=== PATIENT | male | born 1970 | race Hispanic/Latino ===

== ENCOUNTER 2020-04-28 08:33 | Inpatient (IN) | payer BC, OTHER ==
[~2020-04-28] VITALS: Ht 180.3 cm; Wt 86.9 kg
[2020-04-28] MEDS ORDERED: CEFEPIME 1GM/NS 0.9% 50 ML 50 ML IV STA (08:47)
[2020-04-28] MEDS ORDERED: DEXAMETHASONE SOD PHOS 10 MG/1 ML VIAL IV ONE (09:00)
[2020-04-28 09:23] LABS: BASOPHILS % 0.1 % (0.0-1.0); EOSINOPHILS % 0.1 % (0.0-6.0); HEMATOCRIT 43.7 % (38.2-49.6); HEMOGLOBIN 13.6 g/dL (14.0-18.0); LYMPHOCYTES # (AUTO) 0.8 (1.0-3.2); LYMPHOCYTES % 11.6 % (18.0-39.1); MEAN CORPUSCULAR HEMOGLOBIN 21.8 pg (28-32); MEAN CORPUSCULAR HGB CONC 31.1 g/dL (31-35); MONOCYTES # (AUTO) 0.5 (0.2-0.8); NEUTROPHILS # (AUTO) 5.6 (2.1-6.9); NEUTROPHILS % 80.2 % (38.7-80.0); PLATELET COUNT 174 x10e3/uL (140-360); RED BLOOD COUNT 6.24 x10e6/uL (4.3-5.7); RED CELL DISTRIBUTION WIDTH 15.8 % (11.7-14.4)
[2020-04-28] MEDS ORDERED: AZITHROMYCIN 500MG/NS 250 ML 250 ML IV STA (09:28)
--- NOTE | 2020-04-28 09:30 | NUR ---
PATIENT O2 SATURATION 92% ON NASAL CANNULA AT 6 LPM. PATIENT PUT ON NRB AT 10LPM 02 SAT INCREASED TO 95%. PATIENT PRONATED. SWITCHED BACK TO NC 02 SAT INCREASED TO 96-97%.
[2020-04-28 09:47] LABS: ALANINE AMINOTRANSFERASE 103 IU/L (0-55); ALBUMIN 3.1 g/dL (3.5-5.0); ALBUMIN/GLOBULIN RATIO 0.8 (0.8-2.0); ALKALINE PHOSPHATASE 73 IU/L (40-150); BLOOD UREA NITROGEN 10 mg/dL (7-26); BUN/CREATININE RATIO 10 (6-25); CALCIUM 8.6 mg/dL (8.4-10.2); CARBON DIOXIDE 22 mmol/L (22-29); CHLORIDE 94 mmol/L (98-107); CREATINE KINASE 956 IU/L (30-200); CREATININE, SERUM 0.97 mg/dL (0.72-1.25); EST GLOMERULAR FILTRATION RATE > 60 ML/MIN (60-); GLUCOSE 117 mg/dL (74-118); SODIUM 128 mmol/L (136-145)
--- NOTE | 2020-04-28 10:18 | Diagnostic Imaging Report ---
X-ray chest AP portable History: Covid positive Comparison: None Findings: Central airways unremarkable. Heart size and mediastinal contours unremarkable given the technique. No pleural effusion. No pneumothorax. Bilateral patchy and confluent opacities of airspace and interstitial type. Visualized skeletal structures and upper abdomen grossly unremarkable. Impression: Findings consistent with the clinical diagnosis of viral pneumonia. Signed by: Thang Ceballos MD on 04/28/2020 10:15 AM
--- NOTE | 2020-04-28 10:27 | NUR ---
PATIENT UNABLE TO TOLERATE PRONATE POSITION ANY LONGER, MOVED TO SEMI YING POSITION O2 SAT DECREASED TO 89% ON NC AT 6L. SWITCHED TO NRB AT 10 LPM, SAT INCREASED TO 93 %.
--- NOTE | 2020-04-28 11:22 | NUR ---
PATIENT TRIALED ON NC AT 6 LPM O2 SAT 91%.
--- NOTE | 2020-04-28 12:14 | Emergency Department Note ---
History of Present Illnes History of Present Illness Chief Complaint: COVID PUI History of Present Illness This is a 49 year old male arrives to the ED with complaints of generalized weakness and malaise after testing positive for the coronavirus. Progression: worsening Chronicity: new Past Medical/Family History Physician Review I have reviewed the patient's past medical and family history. Any updates have been documented here. Past Medical History Recent Fever: Yes Clinical Suspicion of Infectio: Yes New/Unexplained Change in Ment: No Past Medical History: Hyperlipedemia Other Surgery: lazy eye sx dislocated elbow Social History Smoking Cessation: Never Smoker Alcohol Use: Social Physically hurt or threatened: No Other Any Pre-Existing Lines (PICC,: No Review of Systems Review of Systems Constitutional: Reports malaise, Reports weakness EENTM: Reports no symptoms Cardiovascular: Reports no symptoms Respiratory: Reports as per HPI, Reports cough, Reports dyspnea Gastrointestinal: Reports no symptoms Genitourinary: Reports no symptoms Musculoskeletal: Reports no symptoms Integumentary: Reports no symptoms Neurological: Reports no symptoms Psychological: Reports no symptoms Endocrine: Reports no symptoms Hematological/Lymphatic: Reports no symptoms Physical Exam Related Data Allergies: Coded Allergies: No Known Allergies (Unverified , 04/28/20) Triage Vital Signs Vital Signs Date Time Temp Pulse Resp B/P (MAP) Pulse Ox O2 Delivery O2 Flow Rate FiO2 04/28/20 08:39 99.7 117 28 138/86 78 Room Air Vital signs reviewed: Yes Physical Exam CONSTITUTIONAL Constitutional: Present well-developed, Present well-nourished HENT HENT: Present normocephalic, Present atraumatic, Present oropharynx clear/moist, Present nose normal HENT L/R: Present left ext ear normal, Present right ext ear normal EYES Eyes: Reports PERRL, Reports conjunctivae normal NECK Neck: Present ROM normal PULMONARY Pulmonary: Present effort normal, Present breath sounds normal, Present respiratory distress CARDIOVASCULAR Cardiovascular: Present regular rhythm, Present heart sounds normal, Present capillary refill normal, Present normal rate GASTROINTESTINAL Abdominal: Present soft, Present nontender, Present bowel sounds normal GENITOURINARY Genitourinary: Present exam deferred SKIN Skin: Present warm, Present dry MUSCULOSKELETAL Musculoskeletal: Present ROM normal NEUROLOGICAL Neurological: Present alert, Present oriented x 3, Present no gross motor or sensory deficits PSYCHOLOGICAL Psychological: Present mood/affect normal, Present judgement normal Results Laboratory Result Diagram: 7/9/20 0849 04/28/20 0849 Laboratory Laboratory Tests Test 04/28/20 08:49 White Blood Count 7.04 x10e3/uL (4.8-10.8) Red Blood Count 6.24 x10e6/uL (4.3-5.7) Hemoglobin 13.6 g/dL (14.0-18.0) Hematocrit 43.7 % (38.2-49.6) Mean Corpuscular Volume 70.0 fL (81-99) Mean Corpuscular Hemoglobin 21.8 pg (28-32) Mean Corpuscular Hemoglobin Concent 31.1 g/dL (31-35) Red Cell Distribution Width 15.8 % (11.7-14.4) Platelet Count 174 x10e3/uL (140-360) Neutrophils (%) (Auto) 80.2 % (38.7-80.0) Lymphocytes (%) (Auto) 11.6 % (18.0-39.1) Monocytes (%) (Auto) 7.0 % (4.4-11.3) Eosinophils (%) (Auto) 0.1 % (0.0-6.0) Basophils (%) (Auto) 0.1 % (0.0-1.0) Neutrophils # (Auto) 5.6 (2.1-6.9) Lymphocytes # (Auto) 0.8 (1.0-3.2) Monocytes # (Auto) 0.5 (0.2-0.8) Eosinophils # (Auto) 0.0 (0.0-0.4) Basophils # (Auto) 0.0 (0.0-0.1) Absolute Immature Granulocyte (auto 0.07 x10e3/uL (0-0.1) Sodium Level 128 mmol/L (136-145) Potassium Level 4.0 mmol/L (3.5-5.1) Chloride Level 94 mmol/L (98-107) Carbon Dioxide Level 22 mmol/L (22-29) Anion Gap 16.0 mmol/L (8-16) Blood Urea Nitrogen 10 mg/dL (7-26) Creatinine 0.97 mg/dL (0.72-1.25) Estimat Glomerular Filtration Rate > 60 ML/MIN (60-) BUN/Creatinine Ratio 10 (6-25) Glucose Level 117 mg/dL (74-118) Calcium Level 8.6 mg/dL (8.4-10.2) Total Bilirubin 0.6 mg/dL (0.2-1.2) Aspartate Amino Transf (AST/SGOT) 133 IU/L (5-34) Alanine Aminotransferase (ALT/SGPT) 103 IU/L (0-55) Alkaline Phosphatase 73 IU/L (40-150) Creatine Kinase 956 IU/L (30-200) Creatine Kinase MB 2.50 ng/mL (0-5.0) Troponin I 0.016 ng/mL (0-0.300) Total Protein 7.0 g/dL (6.5-8.1) Albumin 3.1 g/dL (3.5-5.0) Globulin 3.9 g/dL (2.3-3.5) Albumin/Globulin Ratio 0.8 (0.8-2.0) Lab results reviewed: Yes Imaging Imaging results reviewed: Yes Impressions Findings: Central airways unremarkable. Heart size and mediastinal contours unremarkable given the technique. No pleural effusion. No pneumothorax. Bilateral patchy and confluent opacities of airspace and interstitial type. Visualized skeletal structures and upper abdomen grossly unremarkable. Impression: Findings consistent with the clinical diagnosis of viral pneumon Critical Care Time Total Critical Care Time (min): 35 Critical care time exclusive o: separately billable procedures Critcal care necessary due to: respiratory failure Assessment & Plan Medical Decision Making MDM 49-year-old male arrives to the ED after testing positive for the merritt virus. Patient noted hypoxic on arrival with a saturation the 70s. Patient patient supplemental oxygen, pt prone to the emergency department. Patient required hospital admission for supplemental oxygen, steroids and IV antibiotics. Assessment & Plan Final Impression: (1) Acute respiratory disease due to COVID-19 virus Depart Disposition: ADMITTED Last Vital Signs Date Time Temp Pulse Resp B/P (MAP) Pulse Ox O2 Delivery O2 Flow Rate FiO2 04/28/20 10:00 99.0 104 33 127/88 91 04/28/20 08:39 Room Air Medications in the ED Dexamethasone Sodium Phosphate 10 mg ONCE ONCE IV Last administered on 04/28/20at 09:34; Admin Dose 10 MG; Start 04/28/20 at 09:00; Stop 04/28/20 at 09:01; Status DC Cefepime HCl 50 ml @ 100 mls/hr Q24H STAT IV Last administered on 04/28/20at 09:34; Admin Dose 100 MLS/HR; Start 04/28/20 at 08:47; Stop 04/28/20 at 09:16; Status DC Azithromycin 250 ml @ 200 mls/hr NOW STAT IV Last administered on 04/28/20at 10:20; Admin Dose 200 MLS/HR; Start 04/28/20 at 09:28; Stop 04/28/20 at 10:42; Status DC SHAYNE HERNANDEZ, Apr 28, 2020 12:14
--- NOTE | 2020-04-28 13:00 | NUR ---
PATIENT PUT ON HIGH FLOW NASAL CANNULA AT 15 LITERS. O2 SAT 94%
[2020-04-28 14:30] VITALS: BP 136/96
--- NOTE | 2020-04-28 14:30 | NUR ---
Pt received from ER at this time. Pt is aox4 and able to verbalize needs. Pt is on 02 15L high flow nasal cannula. Breaths are even and unlabored at this time. Denies any pain at this time. IV to right AC is intact and patent.
[2020-04-28 16:00] VITALS: BP 136/96
[2020-04-28] MEDS ORDERED: ZOLPIDEM TARTRATE 5 MG TAB PO PRN (16:00)
[2020-04-28] MEDS ORDERED: ATORVASTATIN CA20 MG PO (16:20)
[2020-04-28] MEDS ORDERED: TRAMADOL HCL 50 MG TAB PO PRN (16:45)
[2020-04-28] MEDS ORDERED: ONDANSETRON HCL INJ 2MG/ML 2ML 2 MG/ML VIAL IV PRN (16:45)
--- NOTE | 2020-04-28 16:56 | Consultation ---
DATE OF CONSULTATION: Pulmonary Critical Care Consultation CHIEF COMPLAINT: Dyspnea and fevers. HISTORY OF PRESENT ILLNESS: The patient is a 49-year-old man. He has been sick for about 2 weeks. He has had some fevers as well as cough. Over the past several days, he has been noticed increased shortness of breath. He had trouble with minimal exertion. He also noted some worsening cough. He came to the ER and was found to have low oxygen saturations. PAST MEDICAL HISTORY: 1. No prior respiratory problems. 2. No prior asthma or COPD. 3. No prior heart problems. 4. No prior diabetes. SOCIAL HISTORY: The patient is not a smoker. He is not a drinker. ALLERGIES: NO KNOWN DRUG ALLERGIES. PAST SURGICAL HISTORY: None. FAMILY HISTORY: Noncontributory. REVIEW OF SYSTEMS: The patient reports fever for about 2 weeks. No headache. No neck pain. The patient is not having any chest pain. There is some cough and dyspnea. There is no wheezing. Abdomen is soft, nontender. There is no nausea or vomiting. The patient does not have any leg edema. PHYSICAL EXAMINATION: VITAL SIGNS: Blood pressure is 117/79 and saturation is 91% on a high-flow oxygen. Pulse is 98 and the respiratory rate is in the mid 20s. HEENT: No facial swelling or erythema. CARDIAC: Regular rate and rhythm. Normal S1, S2. LUNGS: Auscultation of lungs reveals clear breath sounds bilaterally. There are some crackles at the bases. ABDOMEN: Soft, nontender. There is no rebound or guarding. EXTREMITIES: No leg edema or calf tenderness. There is no cyanosis or clubbing. SKIN: No rashes. NEUROLOGICAL: No focal abnormalities. LABORATORY DATA: White blood cell count is 7 and hemoglobin is 13.6. The platelet count is 174. The BUN to creatinine ratio is normal. The other electrolytes are within normal limits. Sodium is 128. COVID-19 is positive. RADIOGRAPHIC DATA: Chest x-ray shows bilateral infiltrates consistent with viral pneumonia. IMPRESSION: 1. Viral pneumonia and coronavirus disease-19 infection. 2. Microcytic anemia. 3. Low blood sodium. PLAN: 1. The patient will be continued on antibiotics. 2. Dexamethasone. 3. Lovenox. 4. CT scan of chest to rule out pulmonary emboli or any superimposed respiratory problems. 5. Echocardiogram. 6. Tylenol as needed. 7. Oxygen as needed with a weaning of oxygen. MD RYNE Martinez/[place] /[id number]
[2020-04-28] MEDS ORDERED: SODIUM CHLORIDE 0.9% 250ML 250 ML ONE (16:59)
[2020-04-28] MEDS ORDERED: METOPROLOL TARTRATE INJ 1 MG/ML VIAL IV PRN (17:00)
[2020-04-28] MEDS: ZINC SULFATE 220 MG CAP PO SCH (17:12)
[2020-04-28] MEDS: ASCORBIC ACID 500 MG TAB PO SCH (17:12)
[2020-04-28] MEDS: CEFTRIAXONE SOD 1 GM/NS 50 ML 50 ML IV SCH (17:12)
[2020-04-28] MEDS ORDERED: IOPAMIDOL 370 MG/ML 200 ML INFUS..BTL INJ ONE (17:20)
[2020-04-28] MEDS ORDERED: SODIUM CHLORIDE 0.9% 50ML 50 ML ONE (17:20)
[2020-04-28 18:27] LABS: RBC MORPHOLOGY COMMENT NORMAL
[2020-04-28 18:28] LABS: ANISOCYTOSIS SLIGHT; PLATELET ESTIMATE ADEQUATE; PLATELET MORPHOLOGY COMMENT RARE EDTA CLUMPING; STOMATOCYTES MODERATE
--- NOTE | 2020-04-28 18:56 | Consultation ---
DATE OF CONSULTATION: 04/28/2020 REASON FOR CONSULTATION: COVID-19. HISTORY OF PRESENT ILLNESS: This patient who is a 49-year-old male. He has been sick for more than 2 weeks, but he has been getting progressively worse over the last couple of days with shortness of breath, so he came here. The patient is being admitted. The patient who is currently being in the hospital. PAST MEDICAL HISTORY: He denies. PAST SURGICAL HISTORY: He denies. ALLERGIES: NKA. SOCIAL HISTORY: There is no smoking, drug abuse, or alcohol abuse. FAMILY HISTORY: Otherwise unremarkable. PHYSICAL EXAMINATION: GENERAL: He is currently alert, oriented, does not seem in acute distress. VITAL SIGNS: Stable, currently afebrile. HEENT: He is not icteric. NECK: Supple. CHEST: Clear. HEART: S1 and S2. No murmurs. ABDOMEN: Soft. Bowel sounds present. No tenderness. EXTREMITIES: No edema. SKIN: No rash. IMPRESSION: Coronavirus disease-19, respiratory failure. He has been sick more than 2 weeks, too late for remdesivir. Recommend Rocephin 1 g daily five days, azithromycin 5 mg daily for 3 days, dexamethasone 6 mg p.o. daily for 10 days, Lovenox 0.5 mg/kg q.12 hours, oxygen as needed, vitamin D, vitamin C and zinc supplement. We will follow. MD NELA Curiel/[place] /[id number]
--- NOTE | 2020-04-28 20:00 | NUR ---
Resumed care of patient. Patient awake and sitting up in bed, respirations even and unlabored, O2 92% on 15L high flow nasal cannula. Vital signs stable, no s/s of distress at this time. Bed locked and in lowest position, side rails upx3, alarm on. Call light placed within reach. Patient instructed to call for assistance if needed, verbalized understanding. All safety measures in place. Will continue to monitor.
--- NOTE | 2020-04-28 20:20 | Diagnostic Imaging Report ---
EXAM: CT Chest WITH contrast 04/28/2020 6:04 PM INDICATION: ^Worsening Dyspnea - rule out PE ^[id number] ^1804 COMPARISON: None TECHNIQUE: Chest was scanned utilizing a multidetector helical scanner from the lung apex through the level of the adrenal glands with administration of IV contrast. Coronal and sagittal reformations were obtained. Routine protocol was performed. IV CONTRAST: 100 mL of Omnipaque 300 COMPLICATIONS: None RADIATION DOSE: Total DLP: 494.09 mGy*cm Estimated effective dose: (DLP x 0.014 x size factor) mSv CTDIvol has been reviewed. It is below the limits set by the Radiation Protocol Committee (RPC). Dose modulation, iterative reconstruction, and/or weight based adjustment of the mA/kV was utilized to reduce the radiation dose to as low as reasonably achievable. FINDINGS: LINES/ TUBES: None. VASCULAR: There are no filling defects within the pulmonary arteries to suggest presence of pulmonary embolism. The main pulmonary artery has normal caliber measuring 2.5 cm. LUNGS AND AIRWAYS: There is diffuse patchy groundglass opacification of the lungs with minimally interspersed areas of normal lung parenchyma. The central airways are patent. There is bibasilar atelectasis. PLEURA: The pleural spaces are clear. HEART AND MEDIASTINUM: The thyroid gland is normal. No mediastinal, hilar or axillary lymphadenopathy. The heart is normal in size. There is no pericardial effusion. UPPER ABDOMEN: Unremarkable. BONES: The visualized bony thorax is within normal limits. SOFT TISSUES: Unremarkable. IMPRESSION: 1. Diffuse patchy groundglass opacity involving both lungs, worse at the bases, which most likely represents multifocal pneumonia. 2. No evidence of pulmonary embolism. This images are reviewed by Evgeny Lloyd MD Signed by: Evgeny Lloyd MD on 04/28/2020 8:16 PM
[2020-04-28] MEDS: ENOXAPARIN SOD INJ 40 MG/0.4 ML SYR SC SCH (20:33)
[2020-04-28] MEDS: GUAIFENESIN/CODEINE 10 ML CUP PO PRN (20:33)
[2020-04-28 20:46] VITALS: BP 144/97
[2020-04-28 21:06] VITALS: BP 144/97
--- NOTE | 2020-04-28 21:47 | History and Physical ---
CONSULTING PHYSICIANS: 1. Vicky Evans MD. 2. Pepe Kirkpatrick MD. CHIEF COMPLAINT: Dyspnea and fevers. HISTORY OF PRESENT ILLNESS: The patient is a 49-year-old male, who has been sick about 2 weeks, having chills the first week, but none since. He states he has had increased shortness of breath with only minimal exertion and worsening cough. He came to the emergency department, was found to have low oxygen saturation. He has tested positive for COVID-19. PAST MEDICAL HISTORY: Hyperlipidemia and dislocated elbow. PAST SURGICAL HISTORY: LASIK eye surgery. FAMILY HISTORY: Father had diabetes mellitus. Mother had diabetes mellitus and early Alzheimer's. SOCIAL HISTORY: He denies any use of tobacco or illicit drugs. He drinks alcohol on occasion. 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 ALLERGIES: NO KNOWN ALLERGIES. REVIEW OF SYSTEMS: Has fevers off and on. No chills. He does have a poor appetite. He wears glasses. He has a cough with a small amount of phlegm, short of breath and dyspnea. Denies problems with urination. No complaints of chest pain or palpitations. No nausea, vomiting. He had diarrhea 5 times yesterday and once today. His previous headache has improved. PHYSICAL EXAMINATION: VITAL SIGNS: Temperature 98.4, T-max 99.7, heart rate 99, blood pressure 136/96, respirations 20, oxygen saturation 94%. Weight 215 pounds. BMI 29.98. GENERAL: Lying supine in bed. No acute distress. LUNGS: With bibasilar crackles. He is on 15 L/minute of high-flow oxygen via nasal cannula. HEENT: EOMI. NECK: Supple. CARDIOVASCULAR: Regular rate and rhythm. No murmur. ABDOMEN: Bowel sounds positive. Soft, nontender. No guarding. EXTREMITIES: No pitting edema. No clubbing, cyanosis, or signs of DVT. NEUROLOGICAL: GCS 15. Nonfocal. Oriented x4. LABORATORY DATA: WBC 7.04, hemoglobin 13.6, hematocrit 43.7, platelets 174, neutrophils 80.2%. Sodium 128, potassium 4.0, chloride 94, CO2 of 22, anion gap 16, BUN 10, creatinine 0.97, estimated GFR greater than 60, glucose 117, calcium 8.6, total bilirubin 0.6, AST 133, ALT 103, alkaline phosphatase 73, creatine kinase 956, CK-MB 2.5, troponin I 0.016, total protein 7, albumin 3.1. On 04/28 coronavirus PCR detected. Chest x-ray showed findings consistent with a clinical diagnosis of viral pneumonia. A CT of the chest done around 4 p.m. today with results pending. ASSESSMENT AND PLAN: 1. Viral community-acquired pneumonia (present on admission) due to coronavirus disease-19. CT of the chest to rule out PE has been completed, awaiting those results. Echocardiogram has been ordered and the results are pending. Wean oxygen as tolerated. Continue dexamethasone, azithromycin, and Rocephin antibiotics, Lovenox, vitamin C, zinc sulfate. 2. Microcytic anemia. Monitor H and H, hemoglobin 13.6 today. 3. Acute hyponatremia. Sodium 128. Monitor sodium level. Consider fluid restriction. Consider providing only liquids that contain at least some sodium and avoid water. 4. Acute hypochloremia. Chloride 94. Monitor. 5. Transaminitis. AST 133, ALT 103. Monitor LFTs. 6. Elevated creatine kinase. CK 956. Monitor. 7. Hypoalbuminemia, albumin level 3.1. Maintain nutritional support. He is on a cardiac diet. 8. We will also add p.r.n. metoprolol tartrate for hypertension as needed, Pepcid for peptic ulcer disease prophylaxis, vitamin C and zinc sulfate, p.r.n. Zofran, p.r.n. tramadol, Ensure b.i.d. for nutritional support as the patient has poor appetite and unable to consume much food at a time. A.m. labs ordered. Physical Therapy eval and treat. H and P time spent 60 minutes. Billing code [id number]. Dictated by Lang North, RODRICK MD ANDRÉS KelleyP/MODL /[id number]
[2020-04-29] VITALS (15 sets, daily range): BP systolic 120–132; BP diastolic 78–92
[2020-04-29] MEDS: GUAIFENESIN/CODEINE 10 ML CUP PO PRN (03:27)
[2020-04-29 05:33] LABS: BASOPHILS % 0.1 % (0.0-1.0); HEMOGLOBIN 13.6 g/dL (14.0-18.0); LYMPHOCYTES # (AUTO) 0.8 (1.0-3.2); MEAN CORPUSCULAR HEMOGLOBIN 21.7 pg (28-32); MEAN CORPUSCULAR HGB CONC 30.9 g/dL (31-35); MEAN CORPUSCULAR VOLUME 70.3 fL (81-99); MONOCYTES # (AUTO) 0.6 (0.2-0.8); MONOCYTES % 7.5 % (4.4-11.3); NEUTROPHILS # (AUTO) 6.5 (2.1-6.9); NEUTROPHILS % 81.8 % (38.7-80.0); PLATELET COUNT 189 x10e3/uL (140-360); RED BLOOD COUNT 6.26 x10e6/uL (4.3-5.7)
[2020-04-29 05:51] LABS: ANION GAP 17.7 mmol/L (8-16); BLOOD UREA NITROGEN 14 mg/dL (7-26); BUN/CREATININE RATIO 16 (6-25); CALCIUM 8.9 mg/dL (8.4-10.2); CARBON DIOXIDE 22 mmol/L (22-29); CHLORIDE 102 mmol/L (98-107); CHOL/HDL RATIO 3.2 (3.9-4.7); CHOLESTEROL 121 MD/DL (0-199); CREATININE, SERUM 0.89 mg/dL (0.72-1.25); EST GLOMERULAR FILTRATION RATE > 60 ML/MIN (60-); GLUCOSE 164 mg/dL (74-118); HDL CHOLESTEROL 38 MG/DL (40-60); LDL CHOLESTEROL 63 MG/DL (60-130); MAGNESIUM 2.1 MG/DL (1.3-2.1); PHOSPHORUS 3.9 MG/DL (2.3-4.7); POTASSIUM 4.7 mmol/L (3.5-5.1); SODIUM 137 mmol/L (136-145); TRIGLYCERIDES 98 MG/DL (0-149)
[2020-04-29 06:11] LABS: THYROID STIMULATING HORMONE 0.862 uIU/mL (0.350-4.940)
[2020-04-29] MEDS ORDERED: FAMOTIDINE 20 MG TAB PO SCH (07:30)
--- NOTE | 2020-04-29 07:40 | NUR ---
PATIENT ASSISTED TO THE RESTROOM AND BACK TO BED, NO DISTRESS NOTED. HIGH FLOW O2 IN PLACE. BED IN LOWER POSITION, CALL LIGHT AT REACH.
[2020-04-29 08:07] LABS: ANISOCYTOSIS SLIGHT; BAND NEUTROPHILS % (MANUAL) 1 %; LYMPHOCYTES % (MANUAL) 4 % (19-48); MICROCYTOSIS SLIGHT; MONOCYTES % (MANUAL) 4 % (3.4-9.0); NEUTROPHILS % (MANUAL) 91 % (40-74); PLATELET ESTIMATE ADEQUATE; PLATELET MORPHOLOGY COMMENT NORMAL; RBC MORPHOLOGY COMMENT NORMAL
[2020-04-29] MEDS: DEXAMETHASONE PHOS 4MG/ML 6 MG in SODIUM CHLORIDE 0.9% 50ML 50 ML IV SCH (09:00)
[2020-04-29] MEDS ORDERED: DEXAMETHASONE PHOS 4MG/ML 5ML MULTIDOSE VIAL IV SCH (09:00)
[2020-04-29] MEDS ORDERED: CEFTRIAXONE SOD 1 GM/NS 50 ML 50 ML IV SCH (09:00)
[2020-04-29] MEDS: AZITHROMYCIN 500MG/NS 250 ML 250 ML IV SCH (09:34)
[2020-04-29] MEDS: ZINC SULFATE 220 MG CAP PO SCH ×2 (09:34→17:00)
[2020-04-29] MEDS: ASCORBIC ACID 500 MG TAB PO SCH ×2 (09:34→18:40)
[2020-04-29] MEDS: ENOXAPARIN SOD INJ 40 MG/0.4 ML SYR SC SCH ×2 (09:34→20:25)
--- NOTE | 2020-04-29 10:30 | NUR ---
BED SIDE ECHOCARDIOGRAM COMPLETED. PATIENT IN BED RESTING WITH CALL LIGHT AT REACH.
--- NOTE | 2020-04-29 10:39 | Progress Note ---
DATE: SUBJECTIVE: The patient had CT scan of the chest yesterday, which showed no pulmonary emboli. His multifocal pneumonia consistent with COVID-19. He remains on high-flow oxygen at 15 L, but feels comfortable. He is not tachypneic. PHYSICAL EXAMINATION: VITAL SIGNS: Blood pressure is 128/80 and saturation is 97%. HEENT: Shows no facial swelling or erythema. CARDIAC: Reveals regular rate and rhythm with normal S1 and S2. LUNGS: Auscultation of lungs reveals crackles at the bases. There is no wheezing. ABDOMEN: Soft and nontender. There is no rebound or guarding. EXTREMITIES: Shows no leg edema or calf tenderness. There is no cyanosis or clubbing. SKIN: Shows no rashes. NEUROLOGICAL: Shows no focal abnormalities. LABORATORY DATA: White blood cell count is 7.9 and hemoglobin is 13.6. The platelet count is 189. The BUN to creatinine ratio is normal. Other electrolytes are within normal limits. IMPRESSION: 1. Acute respiratory failure. 2. Viral pneumonia and COVID-19 infection. 3. Microcytic anemia. PLAN: 1. Continue current antibiotics. 2. Complete dexamethasone. 3. Continue Lovenox. 4. Await results of echocardiogram. 5. Wean oxygen as tolerated. 6. Will need evaluation for microcytic anemia when more stable. Pepe Kirkpatrick MD [facility]/[place] /[id number]
--- NOTE | 2020-04-29 11:35 | NUR ---
PATIENT O2 SAT BETWEEN 85 AND 89% ON 15L HIGH FLOW. MD NOTIFIED, AT BED SIDE AT THIS TIME. NEW ORDER RECEIVED.
--- NOTE | 2020-04-29 13:30 | NUR ---
PATIENT TRANSFERRED TO [facility] ICU ROOM 11. REPORT CALLED AND GIVEN TO RECEIVING NURSE. PATIENT TRANSFERRED PER BED, ALL PERSONAL ITEMS TAKEN WITH PATIENT. PATIENT STATED THAT HE WILL NOTIFY HIS FAMILY.
--- NOTE | 2020-04-29 18:06 | NUR ---
Nutrition Screen Note RD Recommendation for Physician: -Continue current diet regimen Plan of Care: RD following, monitoring for tolerance and adequacy Nutrition reason for involvement: Nutrition Risk Trigger Primary Diagnose(s): acute respiratory disease due to COVID-19 virus PMH: Hyperlipidemia and dislocated elbow Ht: 71 in Wt:215 lb BMI: 30 kg/m2 IBW:[address] Assessment: (04/29/20) Chart reviewed. Labs and meds reviewed. Pt is a 49 year old male admitted with acute respiratory disease due to COVID-19. Pt was transferred to the [facility] ICU and is on high-flow oxygen. Unable to speak to pt due to isolation restrictions. Pt is currently on a cardiac diet with Ensure Enlive ordered BID. It is recorded that pt consumed 75% of lunch today and 100% of dinner yesterday. There are no previous weights in chart. Will continue to monitor. Current Diet: cardiac diet with Ensure Enlive BID Malnutrition Evaluation (04/29/20) Unable to assess. Will re-evaluate at follow-up as appropriate. Diet Education Needs Assessment: RD is available for diet education as needed Nutrition Care Level: low Signed: Kiana Purdy, RD, LD
[2020-04-29] MEDS: CEFTRIAXONE SOD 1 GM/NS 50 ML 50 ML IV SCH (18:40)
[2020-04-29] MEDS: CHOLECALCIFEROL 400 UNIT TAB PO SCH (18:40)
[2020-04-29] MEDS: FAMOTIDINE 20 MG/2 ML VIAL IV SCH (20:25)
[2020-04-30] VITALS (21 sets, daily range): BP systolic 117–136; BP diastolic 76–89
[2020-04-30 05:52] LABS: BASOPHILS % 0.1 % (0.0-1.0); HEMATOCRIT 42.2 % (38.2-49.6); HEMOGLOBIN 13.3 g/dL (14.0-18.0); LYMPHOCYTES # (AUTO) 0.8 (1.0-3.2); LYMPHOCYTES % 6.5 % (18.0-39.1); MEAN CORPUSCULAR HGB CONC 31.5 g/dL (31-35); MEAN CORPUSCULAR VOLUME 72.9 fL (81-99); MONOCYTES # (AUTO) 1.1 (0.2-0.8); MONOCYTES % 8.4 % (4.4-11.3); NEUTROPHILS # (AUTO) 10.7 (2.1-6.9); NEUTROPHILS % 84.3 % (38.7-80.0); PLATELET COUNT 196 x10e3/uL (140-360); RED BLOOD COUNT 5.79 x10e6/uL (4.3-5.7); RED CELL DISTRIBUTION WIDTH 17.2 % (11.7-14.4)
[2020-04-30 05:53] LABS: ALANINE AMINOTRANSFERASE 75 IU/L (0-55); ALBUMIN 2.6 g/dL (3.5-5.0); ALBUMIN/GLOBULIN RATIO 0.7 (0.8-2.0); ALKALINE PHOSPHATASE 65 IU/L (40-150); ANION GAP 14.7 mmol/L (8-16); BLOOD UREA NITROGEN 15 mg/dL (7-26); BUN/CREATININE RATIO 17 (6-25); CALCIUM 8.8 mg/dL (8.4-10.2); CARBON DIOXIDE 25 mmol/L (22-29); CHLORIDE 103 mmol/L (98-107); EST GLOMERULAR FILTRATION RATE > 60 ML/MIN (60-); GLUCOSE 130 mg/dL (74-118); POTASSIUM 4.7 mmol/L (3.5-5.1); SODIUM 138 mmol/L (136-145)
[2020-04-30] MEDS: ZINC SULFATE 220 MG CAP PO SCH ×2 (09:00→16:36)
[2020-04-30] MEDS: DEXAMETHASONE PHOS 4MG/ML 6 MG in SODIUM CHLORIDE 0.9% 50ML 50 ML IV SCH (10:37)
[2020-04-30] MEDS: CHOLECALCIFEROL 400 UNIT TAB PO SCH ×2 (10:37→17:43)
[2020-04-30] MEDS: ENOXAPARIN SOD INJ 40 MG/0.4 ML SYR SC SCH ×2 (10:37→20:55)
[2020-04-30] MEDS: AZITHROMYCIN 500MG/NS 250 ML 250 ML IV SCH (10:37)
[2020-04-30] MEDS: ASCORBIC ACID 500 MG TAB PO SCH ×2 (10:37→17:43)
[2020-04-30] MEDS: FAMOTIDINE 20 MG/2 ML VIAL IV SCH ×2 (10:37→20:55)
--- NOTE | 2020-04-30 11:39 | Progress Note ---
DATE: SUBJECTIVE: The patient is resting comfortably with a respiratory rate in the low 20s, but is still on Vapotherm at 40 L with 100%. PHYSICAL EXAMINATION: VITAL SIGNS: The blood pressure is 117/83, saturation is 96% on Vapotherm. HEENT: Shows no facial swelling or erythema. CARDIAC: Reveals regular rate and rhythm with normal S1 and S2. LUNGS: Auscultation of lungs reveals clear breath sounds bilaterally. There is no wheezing. ABDOMEN: Soft and nontender. There is no rebound or guarding. EXTREMITIES: Shows no leg edema or calf tenderness. There is no cyanosis or clubbing. SKIN: Shows no rashes. NEUROLOGICAL: Shows no focal abnormalities. LABORATORY DATA: White blood cell count is 12.6 and hemoglobin is 13.3. The BUN to creatinine ratio is 15 to 0.9 and the albumin is 2.6. IMPRESSION: 1. Acute respiratory failure. 2. Viral pneumonia and COVID-19 infection. 3. Microcytic anemia. PLAN: 1. Complete dexamethasone. 2. Continue current antibiotics. 3. Complete remdesivir. 4. Continue Lovenox. 5. Wean oxygen as tolerated. 6. Evaluate microcytic anemia when stable. Pepe Kirkpatrick MD [facility] /[id number]
[2020-04-30] MEDS: CEFTRIAXONE SOD 1 GM/NS 50 ML 50 ML IV SCH (17:43)
[2020-04-30] MEDS: DEXMEDETOMIDINE HCL 200 MCG in SODIUM CHLORIDE 0.9% 50ML 48 ML IV PRN (20:55)
[2020-05-01] VITALS (28 sets, daily range): BP systolic 107–138; BP diastolic 74–88
[2020-05-01 05:53] LABS: BASOPHILS % 0.1 % (0.0-1.0); HEMOGLOBIN 13.5 g/dL (14.0-18.0); LYMPHOCYTES % 8.1 % (18.0-39.1); MEAN CORPUSCULAR HEMOGLOBIN 21.7 pg (28-32); MEAN CORPUSCULAR VOLUME 72.5 fL (81-99); MONOCYTES # (AUTO) 1.2 (0.2-0.8); MONOCYTES % 9.8 % (4.4-11.3); NEUTROPHILS # (AUTO) 9.6 (2.1-6.9); NEUTROPHILS % 81.3 % (38.7-80.0); PLATELET COUNT 242 x10e3/uL (140-360); RED BLOOD COUNT 6.21 x10e6/uL (4.3-5.7); RED CELL DISTRIBUTION WIDTH 16.8 % (11.7-14.4)
[2020-05-01 06:25] LABS: ALANINE AMINOTRANSFERASE 68 IU/L (0-55); ALBUMIN 2.7 g/dL (3.5-5.0); ALBUMIN/GLOBULIN RATIO 0.7 (0.8-2.0); ALKALINE PHOSPHATASE 75 IU/L (40-150); ANION GAP 13.9 mmol/L (8-16); BLOOD UREA NITROGEN 19 mg/dL (7-26); BUN/CREATININE RATIO 22 (6-25); CALCIUM 8.9 mg/dL (8.4-10.2); CARBON DIOXIDE 23 mmol/L (22-29); CHLORIDE 105 mmol/L (98-107); CREATININE, SERUM 0.86 mg/dL (0.72-1.25); EST GLOMERULAR FILTRATION RATE > 60 ML/MIN (60-); GLUCOSE 104 mg/dL (74-118); POTASSIUM 4.9 mmol/L (3.5-5.1); SODIUM 137 mmol/L (136-145)
[2020-05-01] MEDS: DEXMEDETOMIDINE HCL 200 MCG in SODIUM CHLORIDE 0.9% 50ML 48 ML IV PRN ×3 (06:26→21:41)
[2020-05-01] MEDS: ZINC SULFATE 220 MG CAP PO SCH ×2 (08:29→16:01)
[2020-05-01] MEDS: ASCORBIC ACID 500 MG TAB PO SCH ×2 (08:29→16:01)
[2020-05-01] MEDS: DEXAMETHASONE PHOS 4MG/ML 6 MG in SODIUM CHLORIDE 0.9% 50ML 50 ML IV SCH (08:29)
[2020-05-01] MEDS: FAMOTIDINE 20 MG/2 ML VIAL IV SCH ×2 (08:29→20:20)
[2020-05-01] MEDS: CHOLECALCIFEROL 400 UNIT TAB PO SCH ×2 (08:29→16:01)
[2020-05-01] MEDS: ENOXAPARIN SOD INJ 40 MG/0.4 ML SYR SC SCH ×2 (08:29→20:20)
--- NOTE | 2020-05-01 08:32 | Diagnostic Imaging Report ---
Examination: Single AP view of the chest. COMPARISON: April 28, 2020 INDICATION: Pneumonia DISCUSSION: Lines/tubes: None. Lungs: Multifocal groundglass and airspace consolidations. Pleura: No pleural effusion or pneumothorax. Heart and mediastinum: The heart and the mediastinum are unremarkable. Bones and soft tissues: No acute bony abnormalities. IMPRESSION: 1. Stable multifocal airspace and groundglass consolidations. Signed by: Dr. Elvin Peck M.D. on 05/01/2020 8:29 AM
[2020-05-01] MEDS: AZITHROMYCIN 500MG/NS 250 ML 250 ML IV SCH (09:31)
--- NOTE | 2020-05-01 13:08 | Progress Note ---
DATE: SUBJECTIVE: The patient remains on Vapotherm. He is on 40 L and 100%, but appears comfortable. He has no new complaints. He was able to eat. He is not having nausea or vomiting. PHYSICAL EXAMINATION: VITAL SIGNS: The blood pressure is 121/83 and saturation is 93%, on Vapotherm. HEENT: Shows no facial swelling or erythema. CARDIAC: Reveals regular rate and rhythm with normal S1 and S2. LUNGS: Auscultation of lungs reveals rhonchorous breath sounds bilaterally. There is no wheezing. ABDOMEN: Soft and nontender. There is no rebound or guarding. EXTREMITIES: Shows no leg edema or calf tenderness. There is no cyanosis or clubbing. LABORATORY DATA: White blood cell count is 11.7 and hemoglobin is 13.5. The platelet count is 242. The BUN to creatinine ratio is 19 to 0.86 and other electrolytes are within normal limits. Albumin is 2.7. RADIOGRAPHIC DATA: Chest x-ray shows bilateral airspace disease and multifocal opacities. IMPRESSION: 1. Acute respiratory failure. 2. Viral pneumonia and COVID-19 infection. 3. Microcytic anemia. PLAN: 1. Continue dexamethasone. 2. Continue remdesivir. 3. Continue antibiotics. 4. Lovenox. 5. Evaluate microcytic anemia when stable. Pepe Kirkpatrick MD [facility] /[id number]
--- NOTE | 2020-05-01 14:00 | Progress Note ---
DATE: CONSULTING PHYSICIANS: 1. Dr. Vicky Evans with Infectious Disease. 2. Dr. Pepe Kirkpatrick with Pulmonology. SUBJECTIVE: The patient is lying supine in bed. He is seen in the [facility] ICU, bed #11. He was transferred from [facility], bed #176 due to shortness of breath with respiratory rate 32 while on high-flow oxygen via nasal cannula at 1600 hours. After he was transferred to [facility] ICU, I saw the patient at 1720 hours. He still has a cough and at times it is productive. He denies nausea or vomiting. He had one diarrheal stools, thus far today and had two diarrheal stools yesterday. States he is eating well. OBJECTIVE: VITAL SIGNS: Temperature 98.2, heart rate 85, blood pressure 121/78, respirations 18, and oxygen saturation 91%. LUNGS: Bibasilar crackles. Currently, on Vapotherm 40 L/minute, FiO2 of 100%. Respiratory pattern even and nonlabored. Respiratory rate improved. HEENT: EOMI. NECK: Supple. CARDIOVASCULAR: Regular rate and rhythm. No murmur. ABDOMEN: Bowel sounds positive. Soft, nontender. No guarding. EXTREMITIES: Without pitting edema. No clubbing, cyanosis, or signs of DVT. NEUROLOGICAL: GCS 15. Nonfocal. Oriented x4. He is using a urinal as real urine. LABORATORY DATA: Today; WBC 7.9, hemoglobin 13.6, hematocrit 44, and platelets 189. Sodium 137, potassium 4.7, chloride 102, CO2 of 22, anion gap 17.7, BUN 14, creatinine 0.89, estimated GFR greater than 60, glucose 164. Fingerstick blood glucose level 175. Hemoglobin A1c 6.3%. Calcium 8.9, phosphorus 3.9, magnesium 2.1. Triglycerides 98, cholesterol 121, LDL 63, HDL 38. TSH 0.862. On 04/28/2020, Coronavirus PCR detected. CT of the chest done yesterday was negative for PE. Diffuse patchy ground-glass opacity involving both lungs, worse at the bases, which most likely represents multifocal pneumonia. ASSESSMENT AND PLAN: 1. Viral community-acquired pneumonia, POA, due to Coronavirus disease-19. Echocardiogram results pending. Wean oxygen as tolerated. Continue dexamethasone, azithromycin, Rocephin, Lovenox, vitamin C, zinc sulfate. 2. Microcytic anemia. Monitor H and H. 3. Acute hyponatremia. Sodium level 137 (128), level improved. 4. Acute hypochloremia. Chloride 102 (94), improved. 5. Transaminitis. Reassess LFTs in the morning. 6. Elevated creatine kinase. CK 956. We will reassess in the morning. 7. Prophylaxis. Pepcid. TIME SPENT: 35 minutes. BILLING CODE: [id number]. Dictated by Lang North, AUTOMATIC PAD MAKING MACHINE OPERATOR Shaka Humphreys MD [facility]/MODL /[id number]
[2020-05-01] MEDS: CEFTRIAXONE SOD 1 GM/NS 50 ML 50 ML IV SCH (15:04)
[2020-05-02] VITALS (25 sets, daily range): BP systolic 113–171; BP diastolic 67–108
[2020-05-02] MEDS: DEXMEDETOMIDINE HCL 200 MCG in SODIUM CHLORIDE 0.9% 50ML 48 ML IV PRN ×3 (05:00→19:02)
[2020-05-02 05:31] LABS: BASOPHILS % 0.2 % (0.0-1.0); HEMATOCRIT 45.5 % (38.2-49.6); HEMOGLOBIN 14.2 g/dL (14.0-18.0); LYMPHOCYTES # (AUTO) 1.1 (1.0-3.2); LYMPHOCYTES % 8.3 % (18.0-39.1); MEAN CORPUSCULAR HEMOGLOBIN 21.9 pg (28-32); MEAN CORPUSCULAR HGB CONC 31.2 g/dL (31-35); MEAN CORPUSCULAR VOLUME 70.2 fL (81-99); MONOCYTES # (AUTO) 0.8 (0.2-0.8); MONOCYTES % 6.3 % (4.4-11.3); NEUTROPHILS % 84.1 % (38.7-80.0); PLATELET COUNT 281 x10e3/uL (140-360); RED BLOOD COUNT 6.48 x10e6/uL (4.3-5.7); RED CELL DISTRIBUTION WIDTH 16.8 % (11.7-14.4)
[2020-05-02 05:54] LABS: ALANINE AMINOTRANSFERASE 80 IU/L (0-55); ALBUMIN 2.5 g/dL (3.5-5.0); ALBUMIN/GLOBULIN RATIO 0.6 (0.8-2.0); ALKALINE PHOSPHATASE 80 IU/L (40-150); ANION GAP 13.6 mmol/L (8-16); BLOOD UREA NITROGEN 21 mg/dL (7-26); BUN/CREATININE RATIO 27 (6-25); CALCIUM 8.6 mg/dL (8.4-10.2); CARBON DIOXIDE 21 mmol/L (22-29); CHLORIDE 104 mmol/L (98-107); CREATININE, SERUM 0.79 mg/dL (0.72-1.25); EST GLOMERULAR FILTRATION RATE > 60 ML/MIN (60-); GLUCOSE 104 mg/dL (74-118); POTASSIUM 4.6 mmol/L (3.5-5.1); SODIUM 134 mmol/L (136-145)
[2020-05-02 07:19] LABS: MAGNESIUM 1.9 MG/DL (1.3-2.1); PHOSPHORUS 3.4 MG/DL (2.3-4.7)
--- NOTE | 2020-05-02 08:49 | Diagnostic Imaging Report ---
EXAMINATION: CHEST SINGLE (PORTABLE) INDICATION: Respiratory failure COMPARISON: Chest radiograph 05/01/2020 FINDINGS: LINES/TUBES:EKG leads overlie the chest. LUNGS:The lungs are moderately inflated. Unchanged multifocal bilateral patchy airspace opacities. PLEURA:No pleural effusion or pneumothorax. MEDIASTINUM:The cardiomediastinal silhouette appears unchanged in size and shape. BONES/SOFT TISSUES:No acute osseous injury. ABDOMEN:No free air under the diaphragm. IMPRESSION: No significant interval change. Signed by: Luna Edwards MD on 05/02/2020 8:46 AM
[2020-05-02] MEDS: ZINC SULFATE 220 MG CAP PO SCH ×2 (09:00→17:45)
[2020-05-02] MEDS: CHOLECALCIFEROL 400 UNIT TAB PO SCH ×2 (09:03→17:45)
[2020-05-02] MEDS: FAMOTIDINE 20 MG/2 ML VIAL IV SCH ×2 (09:03→22:14)
[2020-05-02] MEDS: DEXAMETHASONE PHOS 4MG/ML 6 MG in SODIUM CHLORIDE 0.9% 50ML 50 ML IV SCH (09:31)
[2020-05-02] MEDS: ASCORBIC ACID 500 MG TAB PO SCH ×2 (09:31→17:45)
[2020-05-02] MEDS: ENOXAPARIN SOD INJ 40 MG/0.4 ML SYR SC SCH ×2 (11:23→22:14)
[2020-05-02] MEDS: CEFTRIAXONE SOD 1 GM/NS 50 ML 50 ML IV SCH (16:35)
--- NOTE | 2020-05-02 17:25 | Progress Note ---
DATE: Pulmonary Critical Care Progress Note SUBJECTIVE: The patient is on Vapotherm at 40 L along with 100% oxygen. He is on non-rebreather as well. He is not complaining of chest pain. There is no nausea or vomiting. PHYSICAL EXAMINATION: VITAL SIGNS: The patient is afebrile. The blood pressure is 171/81 and saturation is 97%. HEENT: Shows no facial swelling or erythema. CARDIAC: Reveals regular rate and rhythm with normal S1 and S2. LUNGS: Auscultation of lungs reveals rhonchorous breath sounds bilaterally. There is no wheezing. ABDOMEN: Soft and nontender. There is no rebound or guarding. EXTREMITIES: Shows no leg edema or calf tenderness. There is no cyanosis or clubbing. SKIN: Shows no rashes. NEUROLOGICAL: Shows no focal abnormalities. LABORATORY DATA: White blood cell count is 13, hemoglobin is 14.2, and the platelet count is 281. BUN to creatinine ratio is 21 to 0.71. Other electrolytes are within normal limits and albumin is 2.5. IMPRESSION: 1. Acute respiratory failure. 2. COVID-19 and viral pneumonia. 3. Microcytic anemia. PLAN: 1. Continue Vapotherm. 2. Complete remdesivir. 3. Complete antibiotics. 4. Lovenox. Pepe Kirkpatrick MD [facility]/MIKEL /[id number]
[2020-05-03] VITALS (25 sets, daily range): BP systolic 98–161; BP diastolic 63–93
[2020-05-03 05:45] LABS: BASOPHILS % 0.1 % (0.0-1.0); EOSINOPHILS % 0.1 % (0.0-6.0); HEMATOCRIT 45.1 % (38.2-49.6); LYMPHOCYTES # (AUTO) 0.9 (1.0-3.2); LYMPHOCYTES % 6.5 % (18.0-39.1); MEAN CORPUSCULAR HEMOGLOBIN 21.7 pg (28-32); MONOCYTES % 7.1 % (4.4-11.3); NEUTROPHILS # (AUTO) 11.6 (2.1-6.9); NEUTROPHILS % 85.1 % (38.7-80.0); PLATELET COUNT 183 x10e3/uL (140-360); RED BLOOD COUNT 6.44 x10e6/uL (4.3-5.7)
[2020-05-03 06:12] LABS: ANION GAP 15.7 mmol/L (8-16); BLOOD UREA NITROGEN 22 mg/dL (7-26); BUN/CREATININE RATIO 28 (6-25); CALCIUM 8.7 mg/dL (8.4-10.2); CARBON DIOXIDE 21 mmol/L (22-29); CHLORIDE 103 mmol/L (98-107); CREATININE, SERUM 0.78 mg/dL (0.72-1.25); EST GLOMERULAR FILTRATION RATE > 60 ML/MIN (60-); GLUCOSE 100 mg/dL (74-118); POTASSIUM 4.7 mmol/L (3.5-5.1); SODIUM 135 mmol/L (136-145)
--- NOTE | 2020-05-03 09:32 | Progress Note ---
DATE: SUBJECTIVE: The patient is still requiring a Vapotherm of 40 L with 100%. He is a non-rebreather over the Vapotherm. The patient is eating a little bit. He does not complain of nausea or vomiting. He is not having any fevers. PHYSICAL EXAMINATION: VITAL SIGNS: Blood pressure is 135/88 and saturation is 92%. Heart rate is 59. HEENT: Shows no facial swelling or erythema. CARDIAC: Reveals regular rate and rhythm with normal S1 and S2. LUNGS: Auscultation of lungs reveals crackles at the bases. There is no wheezing. ABDOMEN: Soft and nontender. There is no rebound or guarding. EXTREMITIES: Shows no leg edema or calf tenderness. There is no cyanosis or clubbing. SKIN: Shows no rashes. NEUROLOGICAL: Shows no focal abnormalities. LABORATORY DATA: White blood cell count is 13.6 and hemoglobin is 14. The platelet count is 183. The BUN to creatinine ratio is 22 to 0.87. The other electrolytes are within normal limits. RADIOGRAPHIC DATA: Chest x-ray shows bilateral infiltrates. IMPRESSION: 1. Acute respiratory failure. 2. COVID-19 infection with viral pneumonia. 3. Microcytic anemia secondary to chronic blood loss. 4. Transaminitis secondary to viral hepatitis. PLAN: 1. Continue Vapotherm. 2. Place in prone position as tolerated. 3. Continue Lovenox. 4. Continue antibiotics. 5. Complete dexamethasone. Pepe Kirkpatrick MD [facility]/MODL /[id number]
[2020-05-03] MEDS: FAMOTIDINE 20 MG/2 ML VIAL IV SCH ×2 (09:38→20:55)
[2020-05-03] MEDS: DEXAMETHASONE SOD PHOS INJ 4 MG/ML VIAL IV SCH (09:38)
[2020-05-03] MEDS: ZINC SULFATE 220 MG CAP PO SCH ×2 (09:39→16:15)
[2020-05-03] MEDS: ENOXAPARIN SOD INJ 40 MG/0.4 ML SYR SC SCH ×2 (09:39→20:58)
[2020-05-03] MEDS: CHOLECALCIFEROL 400 UNIT TAB PO SCH ×2 (09:39→16:15)
[2020-05-03] MEDS: ASCORBIC ACID 500 MG TAB PO SCH ×2 (09:39→16:15)
[2020-05-03] MEDS: DEXMEDETOMIDINE HCL 200 MCG in SODIUM CHLORIDE 0.9% 50ML 48 ML IV PRN ×2 (16:15→21:06)
[2020-05-03] MEDS: GUAIFENESIN/CODEINE 10 ML CUP PO PRN ×2 (16:16→21:27)
[2020-05-03] MEDS ORDERED: DEXMEDETOMIDINE 200MCG/NS 50ML 50 ML IV ONE (19:54)
--- NOTE | 2020-05-03 20:16 | Progress Note ---
DATE: 05/03/2020 SUBJECTIVE: Mr. Payne is still on Vapotherm 40 L with 100%. The patient remains in Intensive Care Unit, no new complaint, feeling better up in a chair. OBJECTIVE: VITAL SIGNS: Stable, currently afebrile. HEENT: Normocephalic. NECK: Supple. CHEST: Crackles. HEART: S1, S2. ABDOMEN: Soft. Bowel sounds present. EXTREMITIES: No edema. SKIN: No rash. LABORATORY DATA: White count 13.6, hemoglobin is 14, and platelets 183. BUN 22, creatinine 0.87 . MEDICATIONS: The patient is currently on: 1. Vitamin D. 2. Zinc. 3. Vitamin C. 4. Lovenox. 5. Dexamethasone, which was started on 05/03, this is day #5. 6. Lipitor. 7. Lopressor. 8. Ultram. 9. Zofran. He is off antibiotic today. IMPRESSION AND PLAN: COVID-19, doing better, still on Venti mask, but improving. Continue with supportive care as ordered and follow. MD NELA Curiel/MODL /[id number]
[2020-05-03] MEDS: ATORVASTATIN 20 MG TAB PO SCH (20:57)
[2020-05-04] VITALS (23 sets, daily range): BP systolic 105–134; BP diastolic 59–83
[2020-05-04 04:48] LABS: BASOPHILS % 0.1 % (0.0-1.0); EOSINOPHILS # (AUTO) 0.1 (0.0-0.4); EOSINOPHILS % 0.6 % (0.0-6.0); HEMATOCRIT 44.1 % (38.2-49.6); HEMOGLOBIN 13.6 g/dL (14.0-18.0); LYMPHOCYTES # (AUTO) 0.9 (1.0-3.2); MEAN CORPUSCULAR HEMOGLOBIN 21.7 pg (28-32); MEAN CORPUSCULAR HGB CONC 30.8 g/dL (31-35); MEAN CORPUSCULAR VOLUME 70.2 fL (81-99); MONOCYTES # (AUTO) 0.9 (0.2-0.8); NEUTROPHILS # (AUTO) 12.3 (2.1-6.9); NEUTROPHILS % 86.1 % (38.7-80.0); PLATELET COUNT 184 x10e3/uL (140-360); RED BLOOD COUNT 6.28 x10e6/uL (4.3-5.7); RED CELL DISTRIBUTION WIDTH 17.1 % (11.7-14.4)
[2020-05-04 05:11] LABS: ALANINE AMINOTRANSFERASE 55 IU/L (0-55); ALBUMIN 2.3 g/dL (3.5-5.0); ALBUMIN/GLOBULIN RATIO 0.6 (0.8-2.0); ALKALINE PHOSPHATASE 62 IU/L (40-150); ANION GAP 13.4 mmol/L (8-16); BLOOD UREA NITROGEN 23 mg/dL (7-26); BUN/CREATININE RATIO 29 (6-25); CALCIUM 8.4 mg/dL (8.4-10.2); CARBON DIOXIDE 23 mmol/L (22-29); CHLORIDE 102 mmol/L (98-107); CREATININE, SERUM 0.78 mg/dL (0.72-1.25); EST GLOMERULAR FILTRATION RATE > 60 ML/MIN (60-); GLUCOSE 97 mg/dL (74-118); POTASSIUM 4.4 mmol/L (3.5-5.1); SODIUM 134 mmol/L (136-145)
--- NOTE | 2020-05-04 07:56 | Diagnostic Imaging Report ---
Examination: Single AP view of the chest. COMPARISON: Portable chest 05/02/2020 INDICATION: Pneumonia, respiratory failure IMPRESSION: 1. Lines and Tubes: None 2. No interval change in diffuse bilateral interstitial and alveolar opacities consistent with multifocal pneumonia. No effusion. 3. Cardiomediastinal silhouette is normal. Pulmonary vasculature is normal. 4. No acute bony abnormalities. Signed by: Dr. Gurinder Uriarte M.D. on 05/04/2020 7:53 AM
[2020-05-04] MEDS: ENOXAPARIN SOD INJ 40 MG/0.4 ML SYR SC SCH ×2 (08:23→20:32)
[2020-05-04] MEDS: ZINC SULFATE 220 MG CAP PO SCH (08:23)
[2020-05-04] MEDS: CHOLECALCIFEROL 400 UNIT TAB PO SCH ×2 (08:23→20:32)
[2020-05-04] MEDS: FAMOTIDINE 20 MG/2 ML VIAL IV SCH ×2 (08:23→20:34)
[2020-05-04] MEDS: DEXAMETHASONE SOD PHOS INJ 4 MG/ML VIAL IV SCH (08:23)
[2020-05-04] MEDS: ASCORBIC ACID 500 MG TAB PO SCH ×2 (08:23→20:32)
--- NOTE | 2020-05-04 14:29 | Progress Note ---
DATE: Pulmonary Critical Care Progress Note SUBJECTIVE: The patient is still requiring high-flow oxygen and Vapotherm. He is on 40 L with 100%. The patient does not have fever. There is no nausea or vomiting. PHYSICAL EXAMINATION: VITAL SIGNS: The blood pressure is 122/83 and the saturation is 90%. He is on 40 L and 100% Vapotherm. His respiratory rate is in the mid 20s. HEENT: Shows no facial swelling or erythema. CARDIAC: Reveals regular rate and rhythm with normal S1 and S2. LUNGS: Auscultation of lungs reveals crackles at the bases. There is no wheezing. ABDOMEN: Soft and nontender. There is no rebound or guarding. EXTREMITIES: Shows no leg edema or calf tenderness. There is no cyanosis or clubbing. SKIN: Shows no rashes. NEUROLOGICAL: Shows no focal abnormalities. LABORATORY DATA: White blood cell count is 14.2 and the hemoglobin is 13.6. Platelet count is 184. BUN to creatinine ratio is normal. Other electrolytes are within normal limits. The albumin is 2.3. RADIOGRAPHIC DATA: Chest x-ray shows bilateral infiltrates. IMPRESSION: 1. Acute respiratory failure. 2. COVID-19 infection with viral pneumonia. 3. Viral hepatitis secondary to COVID. 4. Microcytic anemia secondary to chronic blood loss. PLAN: 1. Continue Vapotherm. 2. Place in prone position. 3. Lovenox. 4. Complete dexamethasone. 5. Complete antibiotics. 6. Continue to monitor blood counts. MD RYNE Martinez/[place] /[id number]
[2020-05-04] MEDS: GUAIFENESIN/CODEINE 10 ML CUP PO PRN (17:34)
[2020-05-04] MEDS: DEXMEDETOMIDINE HCL 200 MCG in SODIUM CHLORIDE 0.9% 50ML 48 ML IV PRN (20:09)
[2020-05-04] MEDS: ATORVASTATIN 20 MG TAB PO SCH (20:32)
[2020-05-05] VITALS (25 sets, daily range): BP systolic 102–120; BP diastolic 63–91
[2020-05-05] MEDS ORDERED: SODIUM CHLORIDE 0.9% 50ML 0 ML ONE (01:25)
[2020-05-05] MEDS: DEXMEDETOMIDINE HCL 200 MCG in SODIUM CHLORIDE 0.9% 50ML 48 ML IV PRN ×2 (01:39→08:48)
[2020-05-05 06:24] LABS: BASOPHILS % 0.1 % (0.0-1.0); EOSINOPHILS # (AUTO) 0.2 (0.0-0.4); HEMATOCRIT 44.6 % (38.2-49.6); HEMOGLOBIN 14.2 g/dL (14.0-18.0); LYMPHOCYTES # (AUTO) 0.8 (1.0-3.2); LYMPHOCYTES % 5.4 % (18.0-39.1); MEAN CORPUSCULAR HEMOGLOBIN 23.1 pg (28-32); MEAN CORPUSCULAR HGB CONC 31.8 g/dL (31-35); MEAN CORPUSCULAR VOLUME 72.6 fL (81-99); MONOCYTES # (AUTO) 0.9 (0.2-0.8); NEUTROPHILS # (AUTO) 13.2 (2.1-6.9); PLATELET COUNT 220 x10e3/uL (140-360); RED BLOOD COUNT 6.14 x10e6/uL (4.3-5.7); RED CELL DISTRIBUTION WIDTH 18.3 % (11.7-14.4)
[2020-05-05 06:54] LABS: ALANINE AMINOTRANSFERASE 69 IU/L (0-55); ALBUMIN 2.4 g/dL (3.5-5.0); ALBUMIN/GLOBULIN RATIO 0.6 (0.8-2.0); ALKALINE PHOSPHATASE 71 IU/L (40-150); ANION GAP 16.5 mmol/L (8-16); BLOOD UREA NITROGEN 23 mg/dL (7-26); BUN/CREATININE RATIO 31 (6-25); CALCIUM 8.4 mg/dL (8.4-10.2); CARBON DIOXIDE 22 mmol/L (22-29); CHLORIDE 99 mmol/L (98-107); CREATININE, SERUM 0.75 mg/dL (0.72-1.25); EST GLOMERULAR FILTRATION RATE > 60 ML/MIN (60-); GLUCOSE 77 mg/dL (74-118); POTASSIUM 4.5 mmol/L (3.5-5.1); SODIUM 133 mmol/L (136-145)
[2020-05-05] MEDS: ENOXAPARIN SOD INJ 40 MG/0.4 ML SYR SC SCH (08:48)
[2020-05-05] MEDS: DEXAMETHASONE SOD PHOS INJ 4 MG/ML VIAL IV SCH (08:48)
[2020-05-05] MEDS: CHOLECALCIFEROL 400 UNIT TAB PO SCH ×2 (08:48→21:10)
[2020-05-05] MEDS: ASCORBIC ACID 500 MG TAB PO SCH ×2 (08:48→21:10)
--- NOTE | 2020-05-05 10:23 | Progress Note ---
DATE: SUBJECTIVE: The patient remains on a Vapotherm at 40 L, 100% and 100% non-rebreather. He is in the supine position at this time. He is resting comfortably. He does not complain of abdominal pain. There is no nausea or vomiting. PHYSICAL EXAMINATION: VITAL SIGNS: Blood pressure is 112/63, saturation is 93%. HEENT: Shows no facial swelling or erythema. CARDIAC: Reveals regular rate and rhythm with normal S1, S2. LUNGS: Auscultation of lungs reveals crackles at the bases. There is no wheezing. ABDOMEN: Soft and nontender. There is no rebound or guarding. EXTREMITIES: Shows no leg edema or calf tenderness. There is no cyanosis or clubbing. SKIN: Shows no rashes. NEUROLOGICAL: Shows no focal abnormalities. LABORATORY DATA: White blood cell count is 15.4 and hemoglobin is 14.2. The platelet count is 220. The BUN to creatinine ratio is 23 to 0.75 and the sodium is 133. Albumin is 2.4. Chest x-ray showed diffuse bilateral infiltrates. IMPRESSION: 1. Acute respiratory failure. 2. COVID-19 infection with viral pneumonia. 3. Viral hepatitis secondary to COVID. 4. Microcytic anemia secondary to chronic blood loss. PLAN: 1. Continue Vapotherm. 2. Lovenox. 3. Complete dexamethasone. 4. Complete antibiotics. 5. We will need GI evaluation when stable. Pepe Kirkpatrick MD [facility]/MODL /[id number]
--- NOTE | 2020-05-05 10:43 | Progress Note ---
DATE: SUBJECTIVE: The patient is seen evaluated in a COVID ICU. Seems to be alert and oriented. The patient is currently on Vapotherm of 40 and 100% and also on 15 L of non-rebreather. Complaint of a cough, but overall seems to be improving. No distress. No diarrhea. O2 saturation is at 95%. OBJECTIVE: VITAL SIGNS: Temperature is 98.8, pulse 91, respirations 20. As mentioned above, the patient is on non-rebreather and Vapotherm. GENERAL: Alert and oriented. Decreased breath sounds. In no acute distress. ABDOMEN: Soft, nontender. No distention. EXTREMITIES: Moves all. LABORATORY STUDIES: White count of 15.38, hemoglobin of 14.2. He has a platelet of 220. Coronavirus was positive on PCR on 04/28/2020. No new radiology studies. ASSESSMENT AND PLAN: 1. COVID-19 pneumonia. 2. Possible superimposed bacterial pneumonia. 3. Hyperlipidemia. 4. Continue with vitamin D, vitamin C, dexamethasone, Lovenox 40 mg b.i.d., zinc sulfate. Monitor O2 saturation. Monitor clinically. Please refer to chart for more information. Dictated by Sylvester Castro PA-C (Al) iVcky Evans MD /MODL /[id number]
[2020-05-05] MEDS: FAMOTIDINE 20 MG/2 ML VIAL IV SCH ×2 (11:22→21:09)
[2020-05-05] MEDS: ZINC SULFATE 220 MG CAP PO SCH (11:22)
[2020-05-05] MEDS: ATORVASTATIN 20 MG TAB PO SCH (21:10)
[2020-05-06] VITALS (27 sets, daily range): BP systolic 103–140; BP diastolic 59–97
[2020-05-06] MEDS: DEXMEDETOMIDINE HCL 200 MCG in SODIUM CHLORIDE 0.9% 50ML 48 ML IV PRN ×4 (00:15→20:04)
[2020-05-06 05:57] LABS: BASOPHILS % 0.1 % (0.0-1.0); EOSINOPHILS # (AUTO) 0.2 (0.0-0.4); EOSINOPHILS % 1.1 % (0.0-6.0); HEMATOCRIT 43.3 % (38.2-49.6); HEMOGLOBIN 13.5 g/dL (14.0-18.0); LYMPHOCYTES # (AUTO) 0.7 (1.0-3.2); LYMPHOCYTES % 4.8 % (18.0-39.1); MEAN CORPUSCULAR HEMOGLOBIN 22.1 pg (28-32); MEAN CORPUSCULAR HGB CONC 31.2 g/dL (31-35); MEAN CORPUSCULAR VOLUME 70.8 fL (81-99); MONOCYTES # (AUTO) 0.8 (0.2-0.8); MONOCYTES % 5.4 % (4.4-11.3); NEUTROPHILS # (AUTO) 12.6 (2.1-6.9); NEUTROPHILS % 87.5 % (38.7-80.0); PLATELET COUNT 236 x10e3/uL (140-360); RED BLOOD COUNT 6.12 x10e6/uL (4.3-5.7); RED CELL DISTRIBUTION WIDTH 17.5 % (11.7-14.4)
[2020-05-06 06:07] LABS: ALANINE AMINOTRANSFERASE 74 IU/L (0-55); ALBUMIN 2.2 g/dL (3.5-5.0); ALBUMIN/GLOBULIN RATIO 0.6 (0.8-2.0); ALKALINE PHOSPHATASE 71 IU/L (40-150); ANION GAP 11.3 mmol/L (8-16); BLOOD UREA NITROGEN 22 mg/dL (7-26); BUN/CREATININE RATIO 29 (6-25); CALCIUM 8.4 mg/dL (8.4-10.2); CARBON DIOXIDE 24 mmol/L (22-29); CHLORIDE 99 mmol/L (98-107); CREATININE, SERUM 0.75 mg/dL (0.72-1.25); EST GLOMERULAR FILTRATION RATE > 60 ML/MIN (60-); GLUCOSE 99 mg/dL (74-118); POTASSIUM 4.3 mmol/L (3.5-5.1); SODIUM 130 mmol/L (136-145)
--- NOTE | 2020-05-06 08:03 | Progress Note ---
DATE: 04/30/2020 CONSULTING PHYSICIANS: 1. Dr. Pepe Kirkpatrick with Pulmonology/Critical Care Medicine. 2. Dr. Vicky Evans with Infectious Disease. SUBJECTIVE: The patient remains in [facility] ICU room #11, who is resting comfortably as Vapotherm has been weaned from FiO2 of 100% to FiO2 of 80% thus far today. OBJECTIVE: VITAL SIGNS: Temperature 98.8, pulse 62, blood pressure 123/79, respirations 22, oxygen saturation 96%. GENERAL: Supine. LUNGS: Clear to auscultation without wheezing. He is on Vapotherm 40 L/minute, FiO2 of 80%. HEENT: EOMI. NECK: Supple. CARDIOVASCULAR: Regular rate and rhythm. No murmur. ABDOMEN: Bowel sounds positive. Soft, nontender. No guarding. EXTREMITIES: Without pitting edema. No clubbing, cyanosis, or marked swelling. NEUROLOGIC: GCS 15, nonfocal. LABORATORY DATA: WBC is 12.6, hemoglobin 13.3, hematocrit 42.2, platelets 196. Sodium 138, potassium 4.7, chloride 103, CO2 of 25. BUN 15, creatinine 0.9, glucose 130, neutrophils 84.3%. Total bilirubin 0.4, AST 95, ALT 75, alkaline phosphatase 65. Fingerstick blood glucose levels 129, 132, 140. Creatine kinase 794 (956). Total protein 6.6, albumin 2.6. No new imaging studies. ASSESSMENT AND PLAN: 1. Viral community-acquired pneumonia due to coronavirus disease 2019 with acute respiratory failure, complete remdesivir. Continue dexamethasone, azithromycin, Rocephin, Lovenox, vitamin C, vitamin D, zinc sulfate, wean oxygen as tolerated. 2. Elevated CK level. Monitor. 3. Transaminitis. AST 95 (133), ALT 75 (103). Monitor. 4. Microcytic anemia. Hemoglobin 13.3, stable. Monitor. 5. Prophylaxis. Lovenox and Pepcid. 6. Billing code [id number]. Time spent, 35 minutes. Dictated by Lang North NP Shaka Humphreys MD [facility]/MODL /[id number]
[2020-05-06] MEDS: DEXAMETHASONE SOD PHOS INJ 4 MG/ML VIAL IV SCH (08:18)
[2020-05-06] MEDS: CHOLECALCIFEROL 400 UNIT TAB PO SCH ×2 (08:18→20:03)
[2020-05-06] MEDS: ZINC SULFATE 220 MG CAP PO SCH (08:18)
[2020-05-06] MEDS: ASCORBIC ACID 500 MG TAB PO SCH ×2 (08:18→20:03)
--- NOTE | 2020-05-06 08:18 | Progress Note ---
DATE: CONSULTING PHYSICIANS: 1. Dr. Pepe Kirkpatrick, with Pulmonology Critical Care Medicine. 2. Dr. Vicky Evans, with Infectious Disease. SUBJECTIVE: The patient states he is breathing a bit better. Denies pain, headache, nausea, vomiting, chills, oxygen saturation is 90% at time of encounter. He does have a cough. States he has diarrhea. According to the nurse at the bedside, he has had no diarrhea that shift. He remains of cardiac diet plus Ensure. OBJECTIVE: VITAL SIGNS: Temperature 98.7, heart rate 78, blood pressure 113/77, respirations 19, and oxygen saturation 93%. GENERAL: Supine, no acute distress. LUNGS: Generally clear to auscultation with diminished bases. He is on Vapotherm 40 L/minute, FiO2 of 100% with oxygen saturation 92% at the time of encounter and also wearing a non-rebreather mask in addition to the Vapotherm. HEENT: EOMI. NECK: Supple. CARDIOVASCULAR: Regular rate and rhythm. No murmur. ABDOMEN: Bowel sounds positive. Soft, nontender. No guarding. EXTREMITIES: Without pitting edema. No clubbing, cyanosis, or signs of DVT. He is wearing SCDs. NEUROLOGICAL: He is sedated with Precedex 0.5 mcg/kg per minute. LABORATORY DATA: WBC 13, hemoglobin 14.2, hematocrit 45.5, platelets 281, neutrophils 84.1%. Sodium 134, potassium 4.6, chloride 104, CO2 21, BUN 21 and creatinine 0.79, glucose 104, total bilirubin 0.5, AST 83, ALT 80, alkaline phosphatase 80, albumin 2.5, total protein 6.5, phosphorus 3.4, magnesium 1.9. Fingerstick blood glucose level 99. IMAGING: Chest x-ray today shows no significant interval change. Still with multifocal bilateral patchy airspace opacities. ASSESSMENT AND PLAN: 1. Multifocal viral community-acquired pneumonia due to COVID-19, present on admission. Continue Rocephin, dexamethasone, Lovenox, vitamin C, vitamin D, zinc sulfate, Precedex is in use due to anxiety. Continue attempts at weaning oxygen level. 2. Severe sepsis with associated acute respiratory failure due to COVID-19. WBC 13, neutrophils 84.1%. Temperature within normal limits at 98.7. Infectious Disease continues to follow. The patient remains on Rocephin IV. 3. Microcytic anemia, improved. H and H within normal limits. Stable. Monitor. 4. Mild acute hyponatremia. Sodium 134. Monitor. 5. Mild transaminitis, AST 83, ALT 80. Monitor. 6. Elevated CK. Creatine kinase 794 on 04/30. Monitor to ensure continued downtrend. 7. Hypoalbuminemia. Albumin 2.5. Maintain nutritional status as possible with cardiac diet and Ensure. 8. Prophylaxis. Lovenox and Pepcid. Time spent 35 minutes. Billing code [id number]. Dictated by Lang North NP MD ANDRÉS KelleyP/MODL /[id number]
--- NOTE | 2020-05-06 08:43 | Progress Note ---
DATE: 05/01/2020 SUBJECTIVE: The patient lying supine in bed. No apparent distress. He remains on Vapotherm, but appears comfortable, is able to eat. OBJECTIVE: VITAL SIGNS: Temperature 97.0, heart rate 69, respirations 20, blood pressure 128/82, and oxygen saturation 89%. GENERAL: No acute distress. LUNGS: Clear to auscultation. Respiratory pattern even. HEENT: EOMI. NECK: Supple. No JVD. CARDIOVASCULAR: Regular rate and rhythm. No murmur. ABDOMEN: Bowel sounds positive. Soft, nontender. EXTREMITIES: No pitting edema. No clubbing, cyanosis, or marked swelling or signs of DVT. NEUROLOGICAL: GCS 15. Nonfocal. LABORATORY DATA: Sodium 137, potassium 4.9, chloride 105, CO2 23, BUN 19 and creatinine 0.86, estimated GFR greater than 60, glucose 104, calcium 8.9, total bilirubin 0.5, AST 85, ALT 68, alkaline phosphatase 75, total protein 6.6, albumin 2.7. WBCs 11.75, hemoglobin 13.5, hematocrit 45, platelets 242, neutrophils 81.3. IMAGING: Chest x-ray today shows stable multifocal airspace and ground-glass consolidations. ASSESSMENT AND PLAN: 1. Multifocal viral community-acquired pneumonia due to COVID-19, present on admission. Continue dexamethasone, azithromycin, Rocephin, Lovenox, zinc sulfate, vitamin C, and vitamin D. 2. Microcytic anemia. Monitor H and H. Hemoglobin 13.5 and hematocrit 45. 3. Transaminitis, improving. AST 85, ALT 68. Monitor. 4. Prophylaxis. Lovenox and Pepcid. Billing code [id number]. Time spent 35 minutes. Dictated by Lang North NP MD ANDRÉS KelleyP/MODL /[id number]
[2020-05-06] MEDS: FAMOTIDINE 20 MG/2 ML VIAL IV SCH ×2 (09:00→20:03)
--- NOTE | 2020-05-06 09:14 | Progress Note ---
DATE: 05/02/2020 ADDENDUM: Billing code [id number]. Dictated by Lang North, FLAT SURFACER JEWEL MD SERINA Kelley/MI[place]EL /[id number]
--- NOTE | 2020-05-06 09:19 | Progress Note ---
DATE: 04/30/2020 ADDENDUM: [place] [id number]. Dictated by Lang North, MANAGER SPA MD SERINA Kelley/MODL /[id number]
--- NOTE | 2020-05-06 09:23 | Progress Note ---
DATE: 05/01/2020 ADDENDUM: [facility] code [id number]. Dictated by Lang North, CLINICAL DOCUMENTATION CONSULTANT MD SERINA Kelley/MIKEL /[id number]
--- NOTE | 2020-05-06 10:34 | Progress Note ---
DATE: SUBJECTIVE: The patient is symptomatically improved. He is having less dyspnea. OBJECTIVE: VITAL SIGNS: He is now on Vapotherm with the FiO2 decreased to 55% and liter flow at 20. His pulse is 103, respiratory rate is 19. HEENT: Shows no facial swelling or erythema. CARDIAC: Reveals regular rate and rhythm with normal S1 and S2. LUNGS: Auscultation of lungs reveals rhonchorous breath sounds bilaterally. There is no wheezing. ABDOMEN: Soft and nontender. There is no rebound or guarding. EXTREMITIES: Show no leg edema or calf tenderness. There is no cyanosis or clubbing. SKIN: Shows no rashes. NEUROLOGICAL: Shows no focal abnormalities. LABORATORY DATA: White blood cell count is 14.4, hemoglobin is 13.5, and platelet count is 236. The BUN to creatinine ratio is 22 and 0.75 and the other electrolytes are within normal limits. Albumin is 2.2. IMPRESSION: 1. Acute respiratory failure. 2. Coronavirus disease 2019 infection with viral pneumonia. 3. Viral hepatitis secondary to coronavirus disease 2019. 4. Microcytic anemia secondary to chronic blood loss. PLAN: 1. Continue to wean oxygen. 2. Lovenox. 3. Complete dexamethasone. 4. Complete antibiotics. 5. As the patient improves, consider transfer out of the Intensive Care Unit. 6. GI evaluation when stable. Pepe Kirkpatrick MD [facility]/MODL /[id number]
[2020-05-06] MEDS: ALBUTEROL SULFATE HFA 8GM INHALATION AEROSOL INH PRN (13:26)
[2020-05-06] MEDS: GUAIFENESIN/CODEINE 10 ML CUP PO PRN ×2 (13:26→20:03)
--- NOTE | 2020-05-06 14:31 | Progress Note ---
DATE: SUBJECTIVE: Mr. Payne remains in intensive care unit. He is doing good overall. No new complaints. He is still on Vapotherm with FiO2 of 55% at 20. His heart rate 105, respiratory rate is 19. He looks comfortable. REVIEW OF SYSTEMS: Shortness of breath. PHYSICAL EXAMINATION: HEENT: He is not icteric. Normocephalic. NECK: Supple. CHEST: Crackles bilateral. HEART: S1 and S2. No S3, S4, or murmur. ABDOMEN: Soft. Bowel sounds present. EXTREMITIES: No edema. SKIN: No rash. LABORATORY DATA: Reviewed. White count is 14.4 and hemoglobin 13.5. His sodium 130, potassium 4.3 with a creatinine 0.75. The patient, who is on albuterol, zinc, vitamin D, and dexamethasone. This is day #6. The patient has been here for 6 days. He remains on Lovenox, Neurontin, and Zofran. He is off antibiotic. IMPRESSION: 1. COVID-19, respiratory failure, slowly getting better. 2. Elevated liver enzyme, improving. 3. Anemia, stable. Continue as ordered. 4. Continue to wean the patient. 5. Discussed with the medical team at length. MD NELA Curiel/MIKEL /[id number]
--- NOTE | 2020-05-06 15:50 | NUR ---
Nutrition Screen Note RD Recommendation for Physician: -Continue current diet regimen Plan of Care: RD following, monitoring for tolerance and adequacy Nutrition reason for involvement: follow up Primary Diagnose(s): acute respiratory disease due to COVID-19 virus PMH: Hyperlipidemia and dislocated elbow Ht: 71 in Wt:215 lb BMI: 30 kg/m2 IBW:[address] Assessment: 05/06: Follow up. Chart reviewed. RD called pt's nurse over the phone. RN stated pt is consuming 75% of his meals and is drinking Ensure nutrition supplements. Will continue to monitor. (04/29/20) Chart reviewed. Labs and meds reviewed. Pt is a 49 year old male admitted with acute respiratory disease due to COVID-19. Pt was transferred to the [facility] ICU and is on high-flow oxygen. Unable to speak to pt due to isolation restrictions. Pt is currently on a cardiac diet with Ensure Enlive ordered BID. It is recorded that pt consumed 75% of lunch today and 100% of dinner yesterday. There are no previous weights in chart. Will continue to monitor. Current Diet: cardiac diet with Ensure Enlive BID Malnutrition Evaluation (04/29/20) Unable to speak to pt. Will re-evaluate at follow-up as appropriate. Diet Education Needs Assessment: RD is available for diet education as needed Nutrition Care Level: low Signed: Kiana Purdy RD, LD
[2020-05-06] MEDS: BENZONATATE 100 MG CAP PO PRN (17:08)
[2020-05-06] MEDS: MELATONIN 5 MG TABLET PO PRN (20:03)
[2020-05-06] MEDS: ATORVASTATIN 20 MG TAB PO SCH (20:03)
[2020-05-06] MEDS: ENOXAPARIN SOD INJ 40 MG/0.4 ML SYR SC SCH (20:03)
[2020-05-07] VITALS (26 sets, daily range): BP systolic 102–138; BP diastolic 52–82
[2020-05-07] MEDS: DEXMEDETOMIDINE HCL 200 MCG in SODIUM CHLORIDE 0.9% 50ML 48 ML IV PRN ×3 (03:05→20:50)
[2020-05-07 04:21] LABS: BASOPHILS % 0.2 % (0.0-1.0); EOSINOPHILS % 0.1 % (0.0-6.0); HEMATOCRIT 42.9 % (38.2-49.6); HEMOGLOBIN 13.3 g/dL (14.0-18.0); LYMPHOCYTES # (AUTO) 0.7 (1.0-3.2); LYMPHOCYTES % 4.8 % (18.0-39.1); MEAN CORPUSCULAR HEMOGLOBIN 21.9 pg (28-32); MEAN CORPUSCULAR VOLUME 70.6 fL (81-99); MONOCYTES % 6.4 % (4.4-11.3); NEUTROPHILS # (AUTO) 13.2 (2.1-6.9); NEUTROPHILS % 87.4 % (38.7-80.0); PLATELET COUNT 164 x10e3/uL (140-360); RED BLOOD COUNT 6.08 x10e6/uL (4.3-5.7)
[2020-05-07 04:42] LABS: ALANINE AMINOTRANSFERASE 70 IU/L (0-55); ALBUMIN 2.2 g/dL (3.5-5.0); ALBUMIN/GLOBULIN RATIO 0.6 (0.8-2.0); ALKALINE PHOSPHATASE 61 IU/L (40-150); ANION GAP 13.6 mmol/L (8-16); BLOOD UREA NITROGEN 23 mg/dL (7-26); BUN/CREATININE RATIO 32 (6-25); CALCIUM 8.2 mg/dL (8.4-10.2); CARBON DIOXIDE 24 mmol/L (22-29); CHLORIDE 99 mmol/L (98-107); CREATININE, SERUM 0.72 mg/dL (0.72-1.25); EST GLOMERULAR FILTRATION RATE > 60 ML/MIN (60-); GLUCOSE 150 mg/dL (74-118); POTASSIUM 4.6 mmol/L (3.5-5.1); SODIUM 132 mmol/L (136-145)
[2020-05-07] MEDS: FAMOTIDINE 20 MG/2 ML VIAL IV SCH (09:00)
[2020-05-07] MEDS: CHOLECALCIFEROL 400 UNIT TAB PO SCH ×2 (09:03→20:49)
[2020-05-07] MEDS: ZINC SULFATE 220 MG CAP PO SCH (09:03)
[2020-05-07] MEDS: ASCORBIC ACID 500 MG TAB PO SCH ×2 (09:03→20:49)
[2020-05-07] MEDS: DEXAMETHASONE SOD PHOS INJ 4 MG/ML VIAL IV SCH (09:03)
[2020-05-07] MEDS: ENOXAPARIN SOD INJ 40 MG/0.4 ML SYR SC SCH ×2 (09:03→20:49)
[2020-05-07] MEDS: ALBUTEROL SULFATE HFA 8GM INHALATION AEROSOL INH PRN (09:04)
[2020-05-07] MEDS: BENZONATATE 100 MG CAP PO PRN (09:04)
--- NOTE | 2020-05-07 10:01 | Progress Note ---
DATE: SUBJECTIVE: The patient is symptomatically improved. He is sitting in his chair. His Vapotherm is decreased to 60% with a L flow of 35. PHYSICAL EXAMINATION: VITAL SIGNS: Blood pressure is 134/74 and pulse is 90. Respiratory rate is in the low 20s. HEENT: Shows no facial swelling or erythema. CARDIAC: Reveals regular rate and rhythm with normal S1 and S2. LUNGS: Auscultation of lungs reveals rhonchorous breath sounds bilaterally. There is no wheezing. ABDOMEN: Soft and nontender. There is no rebound or guarding. EXTREMITIES: Shows no leg edema or calf tenderness. There is no cyanosis or clubbing. SKIN: Shows no rashes. NEUROLOGICAL: Shows no focal abnormalities. LABORATORY DATA: White blood cell count is 15.1 and the hemoglobin is 13.3. The platelet count is 164. The BUN to creatinine ratio is normal. The sodium is 132. The albumin is 2.2. IMPRESSION: 1. Acute respiratory failure. 2. Viral pneumonia and COVID-19 infection. 3. Viral hepatitis secondary to COVID-19. 4. Microcytic anemia secondary to chronic blood loss. PLAN: 1. Continue to wean Vapotherm. 2. Transfer out of intensive care unit when Vapotherm is weaned off. 3. Complete dexamethasone. 4. Complete antibiotics. 5. GI evaluation when stable. Pepe Kirkpatrick MD [facility]/MODL /[id number]
--- NOTE | 2020-05-07 10:44 | Diagnostic Imaging Report ---
EXAMINATION: CHEST SINGLE (PORTABLE) INDICATION: covid COMPARISON: Chest x-ray dated 05/04/2020. FINDINGS: AP view TUBES and LINES: None. LUNGS/PLEURA: There are increased bilateral patchy opacities compatible with worsening multifocal pneumonia.. There is no pleural effusion or pneumothorax. HEART AND MEDIASTINUM: The cardiomediastinal silhouette is unremarkable. BONES AND SOFT TISSUES: No acute osseous lesion. Soft tissues are unremarkable. UPPER ABDOMEN: No free air under the diaphragm. IMPRESSION: Increase bilateral patchy opacities compatible with worsening multifocal pneumonia Signed by: Sylvester Gill MD on 05/07/2020 10:40 AM
[2020-05-07] MEDS: CEFEPIME 2 GM/NS 0.9% 100 ML 100 ML IV SCH (16:08)
[2020-05-07] MEDS: VANCOMYCIN 1GM/NS 250 ML 250 ML IV SCH (17:03)
[2020-05-07] MEDS: ATORVASTATIN 20 MG TAB PO SCH (20:49)
[2020-05-07] MEDS: FAMOTIDINE 20 MG TAB PO SCH (20:49)
[2020-05-07] MEDS: GUAIFENESIN/CODEINE 10 ML CUP PO PRN (20:50)
[2020-05-07] MEDS: MELATONIN 5 MG TABLET PO PRN (20:50)
[2020-05-08] VITALS (24 sets, daily range): BP systolic 94–149; BP diastolic 65–102
[2020-05-08] MEDS: DEXMEDETOMIDINE HCL 200 MCG in SODIUM CHLORIDE 0.9% 50ML 48 ML IV PRN ×2 (01:30→06:29)
[2020-05-08] MEDS: VANCOMYCIN 1GM/NS 250 ML 250 ML IV SCH ×2 (03:07→17:23)
[2020-05-08] MEDS: CEFEPIME 2 GM/NS 0.9% 100 ML 100 ML IV SCH ×2 (03:07→15:52)
[2020-05-08 03:55] LABS: BASOPHILS % 0.1 % (0.0-1.0); EOSINOPHILS % 0.1 % (0.0-6.0); HEMATOCRIT 40.4 % (38.2-49.6); HEMOGLOBIN 12.4 g/dL (14.0-18.0); LYMPHOCYTES # (AUTO) 0.7 (1.0-3.2); LYMPHOCYTES % 5.6 % (18.0-39.1); MEAN CORPUSCULAR HEMOGLOBIN 22.3 pg (28-32); MEAN CORPUSCULAR HGB CONC 30.7 g/dL (31-35); MEAN CORPUSCULAR VOLUME 72.5 fL (81-99); MONOCYTES # (AUTO) 0.9 (0.2-0.8); MONOCYTES % 7.4 % (4.4-11.3); NEUTROPHILS # (AUTO) 10.3 (2.1-6.9); NEUTROPHILS % 85.6 % (38.7-80.0); PLATELET COUNT 182 x10e3/uL (140-360); RED BLOOD COUNT 5.57 x10e6/uL (4.3-5.7); RED CELL DISTRIBUTION WIDTH 16.8 % (11.7-14.4)
[2020-05-08 04:09] LABS: ALANINE AMINOTRANSFERASE 147 IU/L (0-55); ALBUMIN 2.1 g/dL (3.5-5.0); ALBUMIN/GLOBULIN RATIO 0.6 (0.8-2.0); ALKALINE PHOSPHATASE 63 IU/L (40-150); ANION GAP 12.5 mmol/L (8-16); BLOOD UREA NITROGEN 25 mg/dL (7-26); BUN/CREATININE RATIO 35 (6-25); CALCIUM 8.1 mg/dL (8.4-10.2); CARBON DIOXIDE 24 mmol/L (22-29); CHLORIDE 101 mmol/L (98-107); CREATININE, SERUM 0.72 mg/dL (0.72-1.25); EST GLOMERULAR FILTRATION RATE > 60 ML/MIN (60-); GLUCOSE 162 mg/dL (74-118); POTASSIUM 4.5 mmol/L (3.5-5.1); SODIUM 133 mmol/L (136-145)
[2020-05-08] MEDS: DEXAMETHASONE SOD PHOS INJ 4 MG/ML VIAL IV SCH (08:58)
[2020-05-08] MEDS: ASCORBIC ACID 500 MG TAB PO SCH ×2 (08:58→22:54)
[2020-05-08] MEDS: ALBUTEROL SULFATE HFA 8GM INHALATION AEROSOL INH PRN (08:58)
[2020-05-08] MEDS: ZINC SULFATE 220 MG CAP PO SCH (08:58)
[2020-05-08] MEDS: ENOXAPARIN SOD INJ 40 MG/0.4 ML SYR SC SCH ×2 (08:58→22:54)
[2020-05-08] MEDS: CHOLECALCIFEROL 400 UNIT TAB PO SCH ×2 (08:58→22:54)
[2020-05-08] MEDS: FAMOTIDINE 20 MG TAB PO SCH ×2 (09:00→22:54)
--- NOTE | 2020-05-08 10:59 | Progress Note ---
DATE: SUBJECTIVE: The patient is . He is on Vapotherm at 32 L with 65%. His saturation is in the low 90s. He has some cough. PHYSICAL EXAMINATION: VITAL SIGNS: The blood pressure is 118/83 and saturation is 93%. HEENT: Shows no facial swelling or erythema. CARDIAC: Reveals regular rate and rhythm with normal S1, S2. LUNGS: Auscultation of lungs reveals crackles at the bases. There is no wheezing. ABDOMEN: Soft, nontender. There is no rebound or guarding. EXTREMITIES: Shows no leg edema or calf tenderness. There is no cyanosis or clubbing. SKIN: Shows no rashes. NEUROLOGICAL: Shows no focal abnormalities. LABORATORY DATA: White blood cell count is 11.9, hemoglobin is 12.4, and the platelet count is 182. BUN to creatinine ratio is normal. The AST is 114 and the ALT is 147. Albumin is 2.1. Sodium is 133. IMPRESSION: 1. Acute respiratory failure. 2. Viral pneumonia and COVID-19 infection. 3. Viral hepatitis, secondary to COVID-19. 4. Microcytic anemia, secondary to chronic blood loss. PLAN: 1. Continue to wean Vapotherm. 2. Needs incentive spirometry and EzPAP. 3. Complete dexamethasone. 4. Complete antibiotics. 5. GI evaluation when stable. 6. Transfer out of Intensive Care Unit when off Vapotherm. Pepe Kirkpatrick MD [facility]/MODL /[id number]
[2020-05-08] MEDS ORDERED: GUAIFENESIN/CODEINE 10 ML CUP PO PRN (12:15)
[2020-05-08] MEDS: ATORVASTATIN 20 MG TAB PO SCH (22:54)
[2020-05-08] MEDS: ZOLPIDEM TARTRATE 5 MG TAB PO PRN (22:55)
--- NOTE | 2020-05-08 23:48 | NUR ---
Infectious disease progress note Patient made intensive care unit. See exam and chart review discussed the medical team He is on Vapotherm at 32 L with 65%. His saturation is in the low 90s. He has some cough. PHYSICAL EXAMINATION:Currently alert VITAL SIGNS: The blood pressure is 118/83 and saturation is 93%. HEENT: Shows no facial swelling or erythema. That Dr. Bailey CARDIAC: Reveals regular rate and rhythm with normal S1, S2. LUNGS: Auscultation of lungs reveals crackles at the bases. There is no wheezing. ABDOMEN: Soft, nontender. There is no rebound or guarding. EXTREMITIES: Shows no leg edema or calf tenderness. There is no cyanosis or clubbing. SKIN: Shows no rashes. NEUROLOGICAL: Shows no focal abnormalities. LABORATORY DATA: White blood cell count is 11.9, hemoglobin is 12.4, and the platelet count is 182. BUN to creatinine ratio is normal. The AST is 114 and the ALT is 147. Albumin is 2.1. Sodium is 133. there were data reviewed IMPRESSION: 1. Acute respiratory failure. 2. Viral pneumonia and COVID-19 infection. debility 4. Microcytic anemia, secondary to chronic blood loss. PLAN: discussed with the medical team as above 1. Continue to wean Vapotherm. 2. Needs incentive spirometry and EzPAP. 3. Complete dexamethasone. 4. Complete antibiotics. 5. GI evaluation when stable. 6. Transfer out of Intensive Care Unit when off Vapotherm.
[2020-05-09] VITALS (16 sets, daily range): BP systolic 120–155; BP diastolic 70–94
[2020-05-09] MEDS: CEFEPIME 2 GM/NS 0.9% 100 ML 100 ML IV SCH ×2 (02:18→15:33)
[2020-05-09] MEDS: VANCOMYCIN 1GM/NS 250 ML 250 ML IV SCH ×2 (04:00→16:12)
[2020-05-09 06:07] LABS: BASOPHILS % 0.1 % (0.0-1.0); EOSINOPHILS % 0.1 % (0.0-6.0); HEMATOCRIT 40.7 % (38.2-49.6); HEMOGLOBIN 12.4 g/dL (14.0-18.0); LYMPHOCYTES # (AUTO) 1.2 (1.0-3.2); MEAN CORPUSCULAR HEMOGLOBIN 21.8 pg (28-32); MEAN CORPUSCULAR HGB CONC 30.5 g/dL (31-35); MEAN CORPUSCULAR VOLUME 71.4 fL (81-99); MONOCYTES # (AUTO) 1.3 (0.2-0.8); MONOCYTES % 8.5 % (4.4-11.3); NEUTROPHILS # (AUTO) 12.8 (2.1-6.9); NEUTROPHILS % 82.5 % (38.7-80.0); PLATELET COUNT 248 x10e3/uL (140-360); RED CELL DISTRIBUTION WIDTH 17.8 % (11.7-14.4)
--- NOTE | 2020-05-09 06:38 | NUR ---
infectious disease progress note Patient remains in intensive care unit Patient seen and examined chart reviewed Visit patient is Alert vitals stable afebrile at it that crackles heart assist to soft possible to this extent is no edema skin no rash Impression Study failure covid 19 [id number]
[2020-05-09 06:47] LABS: ALANINE AMINOTRANSFERASE 132 IU/L (0-55); ALBUMIN 2.3 g/dL (3.5-5.0); ALBUMIN/GLOBULIN RATIO 0.7 (0.8-2.0); ALKALINE PHOSPHATASE 64 IU/L (40-150); ANION GAP 12.1 mmol/L (8-16); BLOOD UREA NITROGEN 20 mg/dL (7-26); BUN/CREATININE RATIO 27 (6-25); CALCIUM 8.1 mg/dL (8.4-10.2); CARBON DIOXIDE 24 mmol/L (22-29); CHLORIDE 104 mmol/L (98-107); CREATININE, SERUM 0.74 mg/dL (0.72-1.25); EST GLOMERULAR FILTRATION RATE > 60 ML/MIN (60-); GLUCOSE 103 mg/dL (74-118); POTASSIUM 4.1 mmol/L (3.5-5.1); SODIUM 136 mmol/L (136-145)
[2020-05-09] MEDS: ASCORBIC ACID 500 MG TAB PO SCH ×2 (08:59→21:11)
[2020-05-09] MEDS: ENOXAPARIN SOD INJ 40 MG/0.4 ML SYR SC SCH ×2 (09:00→21:11)
[2020-05-09] MEDS: ZINC SULFATE 220 MG CAP PO SCH (09:00)
[2020-05-09] MEDS: CHOLECALCIFEROL 400 UNIT TAB PO SCH ×2 (09:00→21:11)
[2020-05-09] MEDS: FAMOTIDINE 20 MG TAB PO SCH ×2 (10:28→21:11)
--- NOTE | 2020-05-09 13:14 | Progress Note ---
DATE: SUBJECTIVE: This patient remains in intensive care unit. He is feeling better, however, he remains hypoxemic. He is on Vapotherm of 60% flow of 35. REVIEW OF SYSTEMS: Fatigue and shortness of breath. PHYSICAL EXAMINATION: GENERAL: Currently alert and oriented. VITAL SIGNS: Stable, afebrile. HEENT: Not icteric. NECK: Supple. Chest: Crackles. LABORATORY DATA: Reviewed white count is 15, hemoglobin is 13.3. Sodium 132, creatinine 0.72. This is The patient is going to finish his Decadron. He remains on Lovenox, continue with oxygenation as ordered. Chest x-ray, which was done showed increased opacities. IMPRESSION: Concerned about pneumonia. I am going to put him back on antibiotics cefepime and vancomycin. Continue supportive care as ordered. Follow vancomycin trough. Continue supportive care. MD NELA Curiel/[place] /[id number]
--- NOTE | 2020-05-09 14:24 | Progress Note ---
DATE: SUBJECTIVE: The patient is symptomatically improved. He has less dyspnea. He has less cough. The Vapotherm is decreased to 65% and 35 L. PHYSICAL EXAMINATION: VITAL SIGNS: The blood pressure is 133/94, saturation is 95%. Heart rate is 106. HEENT: Shows no facial swelling or erythema. CARDIAC: Reveals regular rate and rhythm with normal S1 and S2. LUNGS: Auscultation of lungs reveals clear breath sounds bilaterally. There is no wheezing. ABDOMEN: Soft and nontender. There is no rebound or guarding. EXTREMITIES: Shows no leg edema or calf tenderness. There is no cyanosis or clubbing. SKIN: Shows no rashes. NEUROLOGICAL: Shows no focal abnormalities. LABORATORY DATA: White blood cell count is 15.4, hemoglobin is 12.4. The platelet count is 248. The BUN to creatinine ratio is normal. The other electrolytes are within normal limits. Albumin is 2.3. IMPRESSION: 1. Acute respiratory failure. 2. Viral pneumonia and COVID-19 infection. 3. Viral hepatitis, secondary to COVID-19. 4. Microcytic anemia secondary to chronic blood loss. PLAN: 1. Continue to wean Vapotherm. 2. Incentive spirometry and EzPAP. 3. Complete dexamethasone. 4. Complete antibiotics. 5. GI evaluation when stable. Pepe Kirkpatrick MD [facility]/MODL /[id number]
--- NOTE | 2020-05-09 15:45 | Progress Note ---
DATE: SUBJECTIVE: Mr. Payne remains in intensive care unit, up in chair, coughing, still on high oxygen, but feeling better slowly. He is on 35% of high-flow. OBJECTIVE: HEENT: Normocephalic. NECK: Supple. CHEST: Few crackles. COR: S1, S2. ABDOMEN: Soft. IMPRESSION: 1. The patient is stable. We will continue antibiotic for a total of seven days. This is day #11. We will follow vancomycin trough. His white count is higher today. We will keep an eye it. 2. Diabetes. 3. . MD NELA Curiel/MODL /[id number]
[2020-05-09] MEDS: CHLORASEPTIC SPRAY 177 ML BTL MM PRN (16:28)
[2020-05-09] MEDS ORDERED: HYDROCODONE/CHLORPHENIRAMINE 5 ML LIQCR PO PRN (17:30)
[2020-05-09] MEDS: ATORVASTATIN 20 MG TAB PO SCH (21:11)
[2020-05-09] MEDS: ZOLPIDEM TARTRATE 5 MG TAB PO PRN (22:21)
[2020-05-10] VITALS (22 sets, daily range): BP systolic 13–147; BP diastolic 66–108
[2020-05-10] MEDS: CEFEPIME 2 GM/NS 0.9% 100 ML 100 ML IV SCH ×2 (03:16→15:10)
[2020-05-10] MEDS: VANCOMYCIN 1GM/NS 250 ML 250 ML IV SCH (04:10)
--- NOTE | 2020-05-10 06:09 | Diagnostic Imaging Report ---
EXAMINATION: CHEST SINGLE (PORTABLE) INDICATION: COVID COMPARISON: Chest radiograph 05-07-2020. FINDINGS: TUBES and LINES: None. LUNGS/PLEURA: Interval decrease in lung volumes. Persistent bilateral airspace opacities. There is no pleural effusion or pneumothorax. HEART AND MEDIASTINUM: The cardiomediastinal silhouette is unremarkable. BONES AND SOFT TISSUES: No acute osseous lesion. Soft tissues are unremarkable. UPPER ABDOMEN: No free air under the diaphragm. IMPRESSION: Persistent bilateral airspace opacities, compatible with multifocal pneumonia. Interval decrease in lung volumes. Signed by: Dr. Deepika Floyd MD on 05/10/2020 6:06 AM
[2020-05-10 06:41] LABS: BASOPHILS % 0.1 % (0.0-1.0); EOSINOPHILS # (AUTO) 0.1 (0.0-0.4); EOSINOPHILS % 0.9 % (0.0-6.0); HEMATOCRIT 33.3 % (38.2-49.6); HEMOGLOBIN 10.4 g/dL (14.0-18.0); LYMPHOCYTES # (AUTO) 1.2 (1.0-3.2); LYMPHOCYTES % 12.8 % (18.0-39.1); MEAN CORPUSCULAR HEMOGLOBIN 23.3 pg (28-32); MEAN CORPUSCULAR HGB CONC 31.2 g/dL (31-35); MEAN CORPUSCULAR VOLUME 74.5 fL (81-99); MONOCYTES # (AUTO) 0.4 (0.2-0.8); MONOCYTES % 4.5 % (4.4-11.3); NEUTROPHILS # (AUTO) 7.3 (2.1-6.9); NEUTROPHILS % 80.8 % (38.7-80.0); PLATELET COUNT 178 x10e3/uL (140-360); RED BLOOD COUNT 4.47 x10e6/uL (4.3-5.7); RED CELL DISTRIBUTION WIDTH 17.5 % (11.7-14.4)
[2020-05-10 07:01] LABS: ALANINE AMINOTRANSFERASE 73 IU/L (0-55); ALBUMIN 1.7 g/dL (3.5-5.0); ALBUMIN/GLOBULIN RATIO 0.6 (0.8-2.0); ALKALINE PHOSPHATASE 53 IU/L (40-150); ANION GAP 10.1 mmol/L (8-16); BLOOD UREA NITROGEN 14 mg/dL (7-26); BUN/CREATININE RATIO 23 (6-25); CARBON DIOXIDE 19 mmol/L (22-29); CHLORIDE 114 mmol/L (98-107); EST GLOMERULAR FILTRATION RATE > 60 ML/MIN (60-); GLUCOSE 85 mg/dL (74-118); POTASSIUM 3.1 mmol/L (3.5-5.1); SODIUM 140 mmol/L (136-145)
[2020-05-10] MEDS: ZINC SULFATE 220 MG CAP PO SCH (08:03)
[2020-05-10] MEDS: ASCORBIC ACID 500 MG TAB PO SCH ×2 (08:03→20:58)
[2020-05-10] MEDS: ENOXAPARIN SOD INJ 40 MG/0.4 ML SYR SC SCH ×2 (08:03→20:58)
[2020-05-10] MEDS: CHOLECALCIFEROL 400 UNIT TAB PO SCH ×2 (08:03→20:58)
[2020-05-10] MEDS: FAMOTIDINE 20 MG TAB PO SCH ×2 (08:03→20:58)
[2020-05-10] MEDS ORDERED: POTASSIUM CHLORIDE 20 MEQ TAB CR PO SCH (08:30)
[2020-05-10 09:57] LABS: BAND NEUTROPHILS % (MANUAL) 3 %; LYMPHOCYTES % (MANUAL) 9 % (19-48); MONOCYTES % (MANUAL) 4 % (3.4-9.0); NEUTROPHILS % (MANUAL) 84 % (40-74)
--- NOTE | 2020-05-10 12:49 | Progress Note ---
DATE: SUBJECTIVE: The patient feels better overall. He is still on a Vapotherm. PHYSICAL EXAMINATION: VITAL SIGNS: The patient is afebrile. The blood pressure is 129/82 and saturation is 94%. Heart rate is 105. HEENT: Shows no facial swelling or erythema. CARDIAC: Reveals regular rate and rhythm with normal S1 and S2. LUNGS: Auscultation of lungs reveals rhonchorous breath sounds bilaterally. There is no wheezing. ABDOMEN: Soft and nontender. There is no rebound or guarding. EXTREMITIES: Shows no leg edema or calf tenderness. There is no cyanosis or clubbing. SKIN: Shows no rashes. NEUROLOGICAL: Shows no focal abnormalities. LABORATORY DATA: The potassium is 3.1. The BUN to creatinine ratio is normal. The carbon dioxide is 18 and calcium is 6. The albumin is 1.7. Hemoglobin is 10.4 and the white blood cell count is 9. The platelet count is 178. RADIOGRAPHIC DATA: Chest x-ray shows bilateral airspace opacities. IMPRESSION: 1. Acute respiratory failure. 2. Viral pneumonia and COVID-19 infection. 3. Hypokalemia. 4. Hypocalcemia. 5. Non-anion gap metabolic acidosis. PLAN: 1. Taper antibiotics. 2. Continue to wean Vapotherm. 3. Replace potassium. 4. Check ionized calcium. 5. Monitor electrolytes. Pepe Kirkpatrick MD [facility]/MODL /[id number]
--- NOTE | 2020-05-10 20:37 | Progress Note ---
DATE: SUBJECTIVE: Mr. Payne remains very weak. PHYSICAL EXAMINATION: GENERAL: He is not eating really. VITAL SIGNS: Stable. On Vapotherm. HEENT: Not icteric. NECK: Supple. CHEST: Crackles. HEART: ABDOMEN: Soft. IMPRESSION: 1. Respiratory failure. 2. Viral pneumonia. 3. Hypokalemia. 4. Hypocalcemia. 5. Malnutrition. Continue supportive care. 6. Superimposed bacterial pneumonia with Pseudomonas on cefepime. Discontinue vancomycin. Continue with anticoagulation. Continue doxazosin. Discontinue vancomycin. We will follow. MD NELA Curiel/MODL /[id number]
[2020-05-10] MEDS: ATORVASTATIN 20 MG TAB PO SCH (20:58)
[2020-05-10] MEDS: ZOLPIDEM TARTRATE 5 MG TAB PO PRN (20:58)
[2020-05-10] MEDS: ACETAMINOPHEN 325 MG TAB PO PRN (20:59)
[2020-05-11] VITALS (26 sets, daily range): BP systolic 112–148; BP diastolic 62–106
--- NOTE | 2020-05-11 01:08 | Progress Note ---
DATE: CONSULTING PHYSICIANS: 1. Vicky Evans MD, with Infectious Disease. 2. Pepe Kirkpatrick MD with Pulmonology. SUBJECTIVE: The patient is supine in bed with the head of bed elevated. Still having cough. He is on albuterol inhalation every 4 hours. Overall, the patient has not been progressing well. He required increase in his Vapotherm today. OBJECTIVE: VITAL SIGNS: Temperature 98.0, heart rate 109, blood pressure 129/82, respirations 24, oxygen saturation 94%. GENERAL: No acute distress. LUNGS: With bibasilar crackles. Vapotherm at 40 L/minute with FiO2 of 70%. Currently also wearing non-rebreather mask with oxygen saturation 96% at time of encounter. HEENT: EOMI. NECK: Supple. CARDIOVASCULAR: Regular rate and rhythm. No murmur. ABDOMEN: Bowel sounds positive. Soft, nontender. No guarding. EXTREMITIES: No pitting edema. No clubbing, cyanosis, or signs of DVT. NEUROLOGICAL: GCS 14. Eyes 3, verbal 5, motor 6. Nonfocal. LABORATORY DATA: WBC 9.05, hemoglobin 10.4, hematocrit 33.3, platelets 178. Sodium 140, potassium 3.1, chloride 114, CO2 of 19, anion gap 10.1, BUN 14, creatinine 0.6, estimated GFR greater than 60. Glucose 85. Fingerstick blood glucose level 100, calcium 6.0, total bilirubin 0.7, AST 43, ALT 73, alkaline phosphatase 53, total protein 4.5, albumin 1.7. Sputum Gram stain culture and sensitivity collected 05/07, has grown Pseudomonas aeruginosa. Chest x-ray done today shows persistent bilateral airspace opacities compatible with multifocal pneumonia. Interval decrease in lung volumes. ASSESSMENT/PLAN: 1. Acute respiratory failure. Wean Vapotherm to high-flow oxygen as tolerated. 2. Viral community-acquired pneumonia due to coronavirus disease-2019, present on admission. Continue albuterol q.4 hours due to cough. Continue Lovenox, zinc sulfate, ascorbic acid, and vitamin D. 3. Superimposed bacterial pneumonia with Pseudomonas aeruginosa. Vancomycin has been discontinued per Infectious Disease. Continue cefepime. 4. Acute hypokalemia. Potassium level 3.1. Potassium chloride 40 mEq p.o. once ordered this morning by Pulmonology/Critical Care Medicine. Reassess in a.m. Most recent magnesium level 1.9 on 05/02. Reassess in a.m. 5. Microcytic anemia, hemoglobin 10.4 (12.4). Monitor. 6. Transaminitis. AST 43 (91), ALT 73 (132), improving. 7. Prophylaxis. Lovenox and Pepcid. Billing code [id number]. Time spent 35 minutes. Dictated by Lang North, [employer] Shaka Humphreys MD [facility]/MODL /[id number]
[2020-05-11] MEDS: CEFEPIME 2 GM/NS 0.9% 100 ML 100 ML IV SCH ×2 (03:07→15:12)
[2020-05-11 06:23] LABS: ALANINE AMINOTRANSFERASE 87 IU/L (0-55); ALBUMIN 2.1 g/dL (3.5-5.0); ALBUMIN/GLOBULIN RATIO 0.6 (0.8-2.0); ALKALINE PHOSPHATASE 53 IU/L (40-150); ANION GAP 10.2 mmol/L (8-16); BLOOD UREA NITROGEN 19 mg/dL (7-26); BUN/CREATININE RATIO 29 (6-25); CALCIUM 8.1 mg/dL (8.4-10.2); CARBON DIOXIDE 26 mmol/L (22-29); CHLORIDE 105 mmol/L (98-107); CREATININE, SERUM 0.66 mg/dL (0.72-1.25); EST GLOMERULAR FILTRATION RATE > 60 ML/MIN (60-); GLUCOSE 109 mg/dL (74-118); POTASSIUM 4.2 mmol/L (3.5-5.1); SODIUM 137 mmol/L (136-145)
[2020-05-11 07:00] LABS: BASOPHILS % 0.2 % (0.0-1.0); EOSINOPHILS # (AUTO) 0.2 (0.0-0.4); EOSINOPHILS % 1.3 % (0.0-6.0); HEMATOCRIT 41.8 % (38.2-49.6); HEMOGLOBIN 12.9 g/dL (14.0-18.0); LYMPHOCYTES # (AUTO) 1.1 (1.0-3.2); LYMPHOCYTES % 9.1 % (18.0-39.1); MEAN CORPUSCULAR HEMOGLOBIN 22.5 pg (28-32); MEAN CORPUSCULAR HGB CONC 30.9 g/dL (31-35); MEAN CORPUSCULAR VOLUME 72.9 fL (81-99); MONOCYTES # (AUTO) 0.5 (0.2-0.8); MONOCYTES % 4.4 % (4.4-11.3); NEUTROPHILS # (AUTO) 9.9 (2.1-6.9); NEUTROPHILS % 84.4 % (38.7-80.0); PLATELET COUNT 227 x10e3/uL (140-360); RED BLOOD COUNT 5.73 x10e6/uL (4.3-5.7); RED CELL DISTRIBUTION WIDTH 18.6 % (11.7-14.4)
[2020-05-11 07:16] LABS: MAGNESIUM 1.8 MG/DL (1.3-2.1); PHOSPHORUS 3.1 MG/DL (2.3-4.7)
[2020-05-11 07:43] LABS: CALCIUM IONIZED 1.2 mmol/L (1.09-1.30)
[2020-05-11] MEDS: CHOLECALCIFEROL 400 UNIT TAB PO SCH ×2 (09:15→20:57)
[2020-05-11] MEDS: ZINC SULFATE 220 MG CAP PO SCH (09:15)
[2020-05-11] MEDS: ASCORBIC ACID 500 MG TAB PO SCH ×2 (09:15→20:57)
[2020-05-11] MEDS: ENOXAPARIN SOD INJ 40 MG/0.4 ML SYR SC SCH ×2 (09:15→20:57)
[2020-05-11] MEDS: FAMOTIDINE 20 MG TAB PO SCH ×2 (09:16→20:57)
--- NOTE | 2020-05-11 13:23 | NUR ---
this is infectious disease progress note patient seen and examined chart reviewed Patient remains in intensive care unit After the chair SUBJECTIVE: The patient is supine in bed with the head of bed elevated. Still having cough. He is on albuterol inhalation every 4 hours. Overall, the patient has not been progressing well. He required increase in his Vapotherm today. OBJECTIVE: VITAL SIGNS: Temperature 98.0, heart rate 109, blood pressure 129/82, respirations 24, oxygen saturation 94%. GENERAL: No acute distress. LUNGS: With bibasilar crackles. Vapotherm at 40 L/minute with FiO2 of 70%. Currently also wearing non-rebreather mask with oxygen saturation 96% at time of encounter. HEENT: EOMI. Not pale not icteric normocephalic NECK: Supple. CARDIOVASCULAR: Regular rate and rhythm. No murmur. ABDOMEN: Bowel sounds positive. Soft, nontender. No guarding. EXTREMITIES: No pitting edema. No clubbing, cyanosis, or signs of DVT. NEUROLOGICAL: GCS 14. Eyes 3, verbal 5, motor 6. Nonfocal. LABORATORY DATA: all reviewedWBC 9.05, hemoglobin 10.4, hematocrit 33.3, platelets 178. Sodium 140, potassium 3.1, chloride 114, CO2 of 19, anion gap 10.1, BUN 14, creatinine 0.6, estimated GFR greater than 60. Glucose 85. Fingerstick blood glucose level 100, calcium 6.0, total bilirubin 0.7, AST 43, ALT 73, alkaline phosphatase 53, total protein 4.5, albumin 1.7. Sputum Gram stain culture and sensitivity collected 05/07, has grown Pseudomonas aeruginosa. Chest x-ray done today shows persistent bilateral airspace opacities compatible with multifocal pneumonia. Interval decrease in lung volumes. ASSESSMENT/PLAN: 1. Acute respiratory failure. Wean Vapotherm to high-flow oxygen as tolerated. 2. Viral community-acquired pneumonia due to coronavirus disease-2019, present on admission. continue with supportive care continue with anticoagulation mid level, Continue albuterol q.4 hours due to cough. Continue Lovenox, zinc sulfate, ascorbic acid, and vitamin D. 3. Superimposed bacterial pneumonia with Pseudomonas aeruginosa. Continue cefepime. for 14 days total 4. Acute hypokalemia. Potassium level 3.1. Potassium chloride 40 mEq p.o. once ordered this morning by Pulmonology/Critical Care Medicine. Reassess in a.m. Most recent magnesium level 1.9 on 05/02. Reassess in a.m. 5. Microcytic anemia, hemoglobin 10.4 (12.4). Monitor. 6. Transaminitis. AST 43 (91), ALT 73 (132), improving. 7. Prophylaxis. Lovenox and Pepcid.
[2020-05-11] MEDS ORDERED: LACTATED RINGER'S 500 ML INJ ONE (15:00)
--- NOTE | 2020-05-11 15:28 | Progress Note ---
DATE: SUBJECTIVE: The patient is still requiring Vapotherm. He has some shortness of breath with movement. He has minimal cough. He is not having fevers. PHYSICAL EXAMINATION: VITAL SIGNS: The blood pressure is 132/64. He is currently on 35 L and 70% with Vapotherm. HEENT: Shows no facial swelling or erythema. LYMPHATIC: Shows no submandibular, cervical, or supraclavicular adenopathy. CARDIAC: Reveals regular rate and rhythm with normal S1 and S2. LUNGS: Auscultation of lungs reveals rhonchorous breath sounds bilaterally. There is no wheezing. ABDOMEN: Soft and nontender. There is no rebound or guarding. EXTREMITIES: Shows no leg edema or calf tenderness. IMPRESSION: 1. Acute respiratory failure. 2. Viral pneumonia and COVID-19 infection. PLAN: 1. Continue to wean Vapotherm as tolerated. 2. Small dose of IV fluids. 3. Complete antibiotics. 4. Continue Lovenox. 5. Albuterol inhaler as needed. Pepe Kirkpatrick MD [facility]/MODL /[id number]
[2020-05-11] MEDS: ATORVASTATIN 20 MG TAB PO SCH (20:57)
[2020-05-12] VITALS (24 sets, daily range): BP systolic 107–138; BP diastolic 70–94
[2020-05-12] MEDS ORDERED: POLYETHYLENE GLYCOL 3350 17 GM PACK PO PRN (00:45)
[2020-05-12] MEDS: CEFEPIME 2 GM/NS 0.9% 100 ML 100 ML IV SCH ×2 (02:15→15:41)
--- NOTE | 2020-05-12 03:10 | Progress Note ---
DATE: 05/11/2020 SUBJECTIVE: The patient is lying supine in bed, asleep, in no apparent distress. His RN indicates that his last bowel movement was 05/08 and that the patient has been asking for cough syrup. OBJECTIVE: VITAL SIGNS: Temperature 99.0, heart rate 94, blood pressure 121/81, respirations 24, oxygen saturation 96%, T-max 100.2. GENERAL: Supine. Not prone. LUNGS: With bibasilar crackles. Vapotherm at 30 L/minute, FiO2 of 70% plus non-rebreather mask, FiO2 of 100% with oxygen saturation 99% at the time of encounter. HEENT: EOMI. NECK: Supple. CARDIOVASCULAR: Regular rate and rhythm. No murmur. ABDOMEN: Bowel sounds positive. Soft, nontender. EXTREMITIES: No pitting edema. No clubbing, cyanosis, or signs of DVT. NEUROLOGICAL: GCS 14, eye 3, verbal 5, motor 6. Nonfocal. LABORATORY DATA: WBCs 11.7, hemoglobin 12.9, hematocrit 41.8, platelets 227. Sodium 137, potassium 4.2, chloride 105, CO2 of 26, anion gap 10.2, BUN 19, creatinine 0.66, estimated GFR greater than 60, glucose 109. Fingerstick blood glucose level 125, calcium 8.1, ionized calcium 1.2. Phosphorus 3.1, magnesium 1.8, total bilirubin 1, AST 55, ALT 87, alkaline phosphatase 53, total protein 5.8, albumin 2.1. No new imaging results. ASSESSMENT AND PLAN: 1. Acute respiratory failure. The patient was on Vapotherm 40 L/minute with FiO2 of 70% yesterday. This morning he was weaned to 30 L/minute with FiO2 of 70%, but tonight is also wearing a non-rebreather mask. Continue to wean on Vapotherm oxygen as tolerated. 2. Viral community-acquired pneumonia due to coronavirus disease-19, present on admission. Continue Lovenox, zinc sulfate, vitamin C, vitamin D, and albuterol HFA. We will add Mucinex DM. Per RN, the patient's last BM was 05/08. We will add Colace b.i.d. and p.r.n. MiraLax b.i.d. 3. Superimposed bacterial pneumonia with Pseudomonas aeruginosa. Continue cefepime. 4. Microcytic anemia. Hemoglobin 12.9 (10.4, 12.4). Monitor. 5. Transaminitis. AST and ALT a bit better today. 6. Prophylaxis. Lovenox and Pepcid. Billing code [id number]. Time spent 35 minutes. Dictated by Lang North, EMERY WHEEL MOLDER MD [facility]/MODL /[id number]
[2020-05-12 04:52] LABS: BASOPHILS % 0.2 % (0.0-1.0); EOSINOPHILS # (AUTO) 0.2 (0.0-0.4); EOSINOPHILS % 1.5 % (0.0-6.0); HEMATOCRIT 41.4 % (38.2-49.6); HEMOGLOBIN 12.5 g/dL (14.0-18.0); LYMPHOCYTES # (AUTO) 1.2 (1.0-3.2); LYMPHOCYTES % 10.7 % (18.0-39.1); MEAN CORPUSCULAR HGB CONC 30.2 g/dL (31-35); MONOCYTES # (AUTO) 0.7 (0.2-0.8); MONOCYTES % 5.9 % (4.4-11.3); NEUTROPHILS % 81.1 % (38.7-80.0); PLATELET COUNT 234 x10e3/uL (140-360); RED BLOOD COUNT 5.67 x10e6/uL (4.3-5.7); RED CELL DISTRIBUTION WIDTH 18.7 % (11.7-14.4)
[2020-05-12 05:15] LABS: ALANINE AMINOTRANSFERASE 108 IU/L (0-55); ALBUMIN 2.1 g/dL (3.5-5.0); ALBUMIN/GLOBULIN RATIO 0.5 (0.8-2.0); ALKALINE PHOSPHATASE 50 IU/L (40-150); ANION GAP 10.4 mmol/L (8-16); BLOOD UREA NITROGEN 19 mg/dL (7-26); BUN/CREATININE RATIO 28 (6-25); CALCIUM 8.4 mg/dL (8.4-10.2); CARBON DIOXIDE 27 mmol/L (22-29); CHLORIDE 103 mmol/L (98-107); CREATININE, SERUM 0.67 mg/dL (0.72-1.25); EST GLOMERULAR FILTRATION RATE > 60 ML/MIN (60-); GLUCOSE 113 mg/dL (74-118); POTASSIUM 4.4 mmol/L (3.5-5.1); SODIUM 136 mmol/L (136-145)
[2020-05-12] MEDS: ENOXAPARIN SOD INJ 40 MG/0.4 ML SYR SC SCH ×2 (08:35→21:06)
[2020-05-12] MEDS: ASCORBIC ACID 500 MG TAB PO SCH ×2 (08:35→21:06)
[2020-05-12] MEDS: CHOLECALCIFEROL 400 UNIT TAB PO SCH ×2 (08:35→21:06)
[2020-05-12] MEDS: ZINC SULFATE 220 MG CAP PO SCH (08:35)
[2020-05-12] MEDS: DOCUSATE SODIUM 100 MG CAP PO SCH ×2 (09:00→15:41)
[2020-05-12] MEDS: FAMOTIDINE 20 MG TAB PO SCH ×2 (09:00→21:06)
[2020-05-12] MEDS: GUAIFENESIN 600MG/DEXTROMETHORPHAN 30MG TABSR PO SCH ×2 (09:13→15:41)
--- NOTE | 2020-05-12 14:13 | Progress Note ---
DATE: SUBJECTIVE: The patient is feeling slightly better. He has less oxygen. His FiO2 is down to 65% on the Vapotherm and his liter flow is 33. PHYSICAL EXAMINATION: VITAL SIGNS: The blood pressure is 128/84 and the heart rate is 112. HEENT: Shows no facial swelling or erythema. CARDIAC: Reveals regular rate and rhythm with normal S1 and S2. LUNGS: Auscultation of lungs reveals crackles at the bases. There is no wheezing. ABDOMEN: Soft and nontender. There is no rebound or guarding. EXTREMITIES: Shows no leg edema or calf tenderness. There is no cyanosis or clubbing. SKIN: Shows no rashes. NEUROLOGICAL: Shows no focal abnormalities. LABORATORY DATA: White blood cell count is 11 and the hemoglobin is 12.5. The platelet count is 234. The BUN to creatinine ratio is 19 to 0.67 and other electrolytes are within normal limits. Albumin is 2.1. RADIOGRAPHIC DATA: Chest x-ray shows bilateral infiltrates. IMPRESSION: 1. Acute respiratory failure. 2. Viral pneumonia and COVID-19 infection. PLAN: 1. Continue to wean Vapotherm. 2. Complete antibiotics. 3. Lovenox. 4. Out of bed as tolerated. 5. Continue albuterol inhaler as needed. Pepe Kirkpatrick MD [facility]/MODL /[id number]
--- NOTE | 2020-05-12 17:35 | Progress Note ---
DATE: SUBJECTIVE: Mr. Payne remains in intensive care unit. This is day #14. He remains on high-flow, up in the chair, looks comfortable. No new complaints, but easily gets short of breath and fatigue. REVIEW OF SYSTEMS: Otherwise as mentioned above. PHYSICAL EXAMINATION: GENERAL: Currently alert. VITAL SIGNS: Stable, afebrile. HEENT: He is not icteric. NECK: Supple. CHEST: Crackles bilateral. HEART: S1 and S2. ABDOMEN: Soft. Bowel sounds present. No tenderness. EXTREMITIES: No edema. SKIN: There is no rash. LABORATORY DATA: Reviewed. Chart reviewed. IMPRESSION: Respiratory failure, COVID-19, present on admission, concern superimposed bacterial pneumonia, clinically stable. He is currently on Mucinex, Colace, Pepcid and Lovenox, cefepime was started yesterday for aspiration pneumonia, and albuterol. He finished his steroid. He does have superimposed bacterial pneumonia, aspiration pneumonia, healthcare-associated with Pseudomonas aeruginosa. The plan is to do cefepime for 14 days. Case was discussed with the medical team. Continue as ordered. Very slow progress. We will follow. MD NELA Curiel/[place] /[id number]
--- NOTE | 2020-05-12 18:54 | NUR ---
patient heart rate was in 130s to 140s, Dr Kirkpatrick notified and order for lactate ringer received and enter into the computer. LR is currently infusing at 100ml/hr.
[2020-05-12] MEDS: LACTATED RINGER'S 1,000 ML INJ SCH (19:23)
[2020-05-12] MEDS: ATORVASTATIN 20 MG TAB PO SCH (21:06)
[2020-05-13] VITALS (28 sets, daily range): BP systolic 118–162; BP diastolic 78–98
[2020-05-13] MEDS: CEFEPIME 2 GM/NS 0.9% 100 ML 100 ML IV SCH ×2 (02:48→15:53)
[2020-05-13] MEDS: ZOLPIDEM TARTRATE 5 MG TAB PO PRN ×2 (04:22→21:45)
[2020-05-13] MEDS: LACTATED RINGER'S 1,000 ML INJ SCH (05:04)
[2020-05-13] MEDS: ZINC SULFATE 220 MG CAP PO SCH (09:00)
[2020-05-13] MEDS: ENOXAPARIN SOD INJ 40 MG/0.4 ML SYR SC SCH (09:05)
[2020-05-13] MEDS: ASCORBIC ACID 500 MG TAB PO SCH ×2 (09:07→21:45)
[2020-05-13] MEDS: FAMOTIDINE 20 MG TAB PO SCH ×2 (09:07→21:44)
[2020-05-13] MEDS: DOCUSATE SODIUM 100 MG CAP PO SCH ×2 (09:07→17:08)
[2020-05-13] MEDS: GUAIFENESIN 600MG/DEXTROMETHORPHAN 30MG TABSR PO SCH ×3 (09:07→21:45)
[2020-05-13] MEDS: CHOLECALCIFEROL 400 UNIT TAB PO SCH ×2 (09:07→21:45)
--- NOTE | 2020-05-13 12:43 | Progress Note ---
DATE: SUBJECTIVE: The patient continues to require Vapotherm. He was decreased to 30 L with FiO2 of 65%. He received some additional IV fluids yesterday. PHYSICAL EXAMINATION: VITAL SIGNS: Blood pressure is 157/90 and saturation is 99%. Respiratory rate is 22. HEENT: Shows no facial swelling or erythema. LYMPHATIC: Shows no submandibular, cervical, or supraclavicular adenopathy. CARDIAC: Reveals regular rate and rhythm with normal S1 and S2. LUNGS: Auscultation of lungs reveals crackles at the bases. There is no wheezing. ABDOMEN: Soft and nontender. There is no rebound or guarding. EXTREMITIES: Shows no leg edema or calf tenderness. There is no cyanosis or clubbing. SKIN: Shows no rashes. LABORATORY DATA: White blood cell count is 11 and hemoglobin is 12.5. The platelet count is 234. The BUN to creatinine ratio is 19 to 0.67. The other electrolytes within normal limits. The albumin is 2.1. IMPRESSION: 1. Acute respiratory failure. 2. Viral pneumonia and COVID-19 infection. PLAN: 1. Continue to wean Vapotherm. 2. Continue with judicious use of IV fluids. 3. Lovenox. 4. Continue albuterol as needed. 5. Complete antibiotics. Pepe Kirkpatrick MD [facility]/MODL /[id number]
--- NOTE | 2020-05-13 15:12 | NUR ---
Nutrition Screen Note RD Recommendation for Physician: -Continue current diet regimen Plan of Care: RD following, monitoring for tolerance and adequacy Nutrition reason for involvement: follow up Primary Diagnose(s): acute respiratory disease due to COVID-19 virus PMH: Hyperlipidemia and dislocated elbow Ht: 71 in Wt:215 lb BMI: 30 kg/m2 IBW:[address] Assessment: 05/13: Follow up. Chart reviewed. RD called pts nurse over the phone. RN stated that pt consumed all of his breakfast this morning and is drinking Ensure. Will continue to monitor. 05/06: Follow up. Chart reviewed. RD called pt's nurse over the phone. RN stated pt is consuming 75% of his meals and is drinking Ensure nutrition supplements. Will continue to monitor. (04/29/20) Chart reviewed. Labs and meds reviewed. Pt is a 49 year old male admitted with acute respiratory disease due to COVID-19. Pt was transferred to the [facility] ICU and is on high-flow oxygen. Unable to speak to pt due to isolation restrictions. Pt is currently on a cardiac diet with Ensure Enlive ordered BID. It is recorded that pt consumed 75% of lunch today and 100% of dinner yesterday. There are no previous weights in chart. Will continue to monitor. Current Diet: cardiac diet with Ensure Enlive BID Malnutrition Evaluation (04/29/20) Unable to speak to pt. Will re-evaluate at follow-up as appropriate. Diet Education Needs Assessment: RD is available for diet education as needed Nutrition Care Level: low Signed: Kiana Purdy, ROCHELLE, LD
--- NOTE | 2020-05-13 15:47 | NUR ---
REVIEW OF SYSTEMS: Otherwise as mentioned above. PHYSICAL EXAMINATION: GENERAL: Currently alert. VITAL SIGNS: Stable, afebrile. HEENT: He is not icteric. NECK: Supple. CHEST: Crackles bilateral. HEART: S1 and S2. ABDOMEN: Soft. Bowel sounds present. No tenderness. EXTREMITIES: No edema. SKIN: There is no rash. LABORATORY DATA: Reviewed. Chart reviewed. IMPRESSION: Respiratory failure, COVID-19, present on admission, concern superimposed bacterial pneumonia, clinically stable. He is currently on Mucinex, Colace, Pepcid and Lovenox, cefepime was started yesterday for aspiration pneumonia, and albuterol. He finished his steroid. [id number]
--- NOTE | 2020-05-13 18:15 | Progress Note ---
DATE: SUBJECTIVE: Mr. Payne remains in intensive care unit. He is up in a chair, short of breath. He is looking better. No new complaints. Today is day #15. REVIEW OF SYSTEMS: At the present time beside the shortness of breath, he denies any. PHYSICAL EXAMINATION: GENERAL: He is currently alert. VITAL SIGNS: Stable, afebrile. HEENT: He is not icteric. NECK: Supple. CHEST: A few crackles bilaterally. HEART: S1 and S2. ABDOMEN: Soft. IMPRESSION: 1. COVID-19. 2. Supposed bacterial pneumonia with pseudomonas. PLAN: Continue cefepime for 14 days. The case was discussed with all medical team. His laboratory data reviewed. There is really nothing new today. Continue with oxygenation as needed. We will follow. MD NELA Curiel/[place] /[id number]
[2020-05-13] MEDS: ATORVASTATIN 20 MG TAB PO SCH (21:44)
[2020-05-14] VITALS (22 sets, daily range): BP systolic 111–150; BP diastolic 80–102
[2020-05-14] MEDS: CEFEPIME 2 GM/NS 0.9% 100 ML 100 ML IV SCH ×2 (02:08→14:58)
[2020-05-14 06:05] LABS: BASOPHILS % 0.2 % (0.0-1.0); EOSINOPHILS # (AUTO) 0.2 (0.0-0.4); EOSINOPHILS % 1.8 % (0.0-6.0); HEMATOCRIT 39.5 % (38.2-49.6); HEMOGLOBIN 11.9 g/dL (14.0-18.0); LYMPHOCYTES # (AUTO) 1.2 (1.0-3.2); LYMPHOCYTES % 9.8 % (18.0-39.1); MEAN CORPUSCULAR HEMOGLOBIN 21.9 pg (28-32); MEAN CORPUSCULAR HGB CONC 30.1 g/dL (31-35); MEAN CORPUSCULAR VOLUME 72.7 fL (81-99); NEUTROPHILS # (AUTO) 9.7 (2.1-6.9); NEUTROPHILS % 79.7 % (38.7-80.0); PLATELET COUNT 221 x10e3/uL (140-360); RED BLOOD COUNT 5.43 x10e6/uL (4.3-5.7); RED CELL DISTRIBUTION WIDTH 18.8 % (11.7-14.4)
--- NOTE | 2020-05-14 06:20 | Diagnostic Imaging Report ---
EXAMINATION: CHEST SINGLE (PORTABLE) INDICATION: ^viral pneumonia COMPARISON: Chest radiograph 05-10-2020. FINDINGS: TUBES and LINES: None. LUNGS/PLEURA: No significant interval change in multifocal bilateral airspace opacities. There is no pleural effusion or pneumothorax. HEART AND MEDIASTINUM: The cardiomediastinal silhouette is partially obscured, however, grossly unremarkable. BONES AND SOFT TISSUES: No acute osseous lesion. UPPER ABDOMEN: No free air under the diaphragm. IMPRESSION: No significant interval change in bilateral airspace opacities, compatible with multifocal pneumonia. Signed by: Dr. Gladys Medina M.D. on 05/14/2020 6:17 AM
[2020-05-14 06:31] LABS: ALANINE AMINOTRANSFERASE 108 IU/L (0-55); ALBUMIN 2.1 g/dL (3.5-5.0); ALBUMIN/GLOBULIN RATIO 0.5 (0.8-2.0); ALKALINE PHOSPHATASE 49 IU/L (40-150); ANION GAP 10.3 mmol/L (8-16); BLOOD UREA NITROGEN 14 mg/dL (7-26); BUN/CREATININE RATIO 21 (6-25); CALCIUM 8.4 mg/dL (8.4-10.2); CARBON DIOXIDE 29 mmol/L (22-29); CHLORIDE 100 mmol/L (98-107); CREATININE, SERUM 0.66 mg/dL (0.72-1.25); EST GLOMERULAR FILTRATION RATE > 60 ML/MIN (60-); GLUCOSE 106 mg/dL (74-118); POTASSIUM 4.3 mmol/L (3.5-5.1); SODIUM 135 mmol/L (136-145)
[2020-05-14] MEDS: FAMOTIDINE 20 MG TAB PO SCH ×2 (08:36→20:48)
[2020-05-14] MEDS: DOCUSATE SODIUM 100 MG CAP PO SCH ×2 (08:36→18:10)
[2020-05-14] MEDS: ZINC SULFATE 220 MG CAP PO SCH (08:36)
[2020-05-14] MEDS: CHOLECALCIFEROL 400 UNIT TAB PO SCH ×2 (08:36→20:48)
[2020-05-14] MEDS: ASCORBIC ACID 500 MG TAB PO SCH ×2 (08:36→20:48)
--- NOTE | 2020-05-14 10:28 | Progress Note ---
DATE: SUBJECTIVE: The patient symptoms. His Vapotherm is decreased to 60% and 28 L. He still has some cough, although it is diminished. PHYSICAL EXAMINATION: VITAL SIGNS: The patient is afebrile. The blood pressure is 111/80 and the heart rate is 102. HEENT: Shows no facial swelling or erythema. CARDIAC: Reveals regular rate and rhythm with a normal S1 and S2. LUNGS: Auscultation of lungs reveals clear breath sounds bilaterally. There is no wheezing. ABDOMEN: Soft and nontender. There is no rebound or guarding. EXTREMITIES: Shows no leg edema or calf tenderness. There is no cyanosis or clubbing. SKIN: Shows no rashes. LABORATORY DATA: BUN to creatinine ratio is normal. The other electrolytes are within normal limits. The albumin is 2.1. White blood cell count is 12.15 and the hemoglobin is 11.9. The platelet count is 221. RADIOGRAPHIC DATA: Shows bilateral infiltrates. IMPRESSION: 1. Acute respiratory failure. 2. Viral pneumonia and COVID-19 infection. 3. Anemia, unspecified. PLAN: 1. Continue to wean oxygen as tolerated. 2. Out of bed as tolerated. 3. Cough suppressants. 4. Lovenox. 5. Attempt to transfer out of intensive care unit when off Vapotherm. Pepe Kirkpatrick MD [facility]/MODL /[id number]
[2020-05-14] MEDS: GUAIFENESIN 600MG/DEXTROMETHORPHAN 30MG TABSR PO SCH ×2 (17:00→18:10)
[2020-05-14] MEDS: ENOXAPARIN SOD INJ 40 MG/0.4 ML SYR SC SCH (20:48)
[2020-05-14] MEDS: ZOLPIDEM TARTRATE 5 MG TAB PO PRN (20:48)
[2020-05-14] MEDS: ATORVASTATIN 20 MG TAB PO SCH (20:48)
[2020-05-15] VITALS (22 sets, daily range): BP systolic 103–156; BP diastolic 68–98
[2020-05-15] MEDS: CEFEPIME 2 GM/NS 0.9% 100 ML 100 ML IV SCH ×2 (02:09→14:56)
--- NOTE | 2020-05-15 04:55 | Progress Note ---
DATE: 05/14/2020 SUBJECTIVE: Mr. Payne remains in the intensive care unit. He is on Vapotherm 60%. He is still having cough, he is improving slowly. REVIEW OF SYSTEMS: Otherwise just weak. PHYSICAL EXAMINATION: GENERAL: Currently alert. VITAL SIGNS: Stable, afebrile. HEENT: Not icteric. NECK: Supple. CHEST: Crackles bilateral. HEART: S1 and S2. ABDOMEN: Soft. IMPRESSION: Respiratory failure, viral pneumonia, anemia, slowly improving. Continue supportive care. Continue to wean down oxygen as tolerated. Discussed with medical team at length. Laboratory data reviewed, chart reviewed, medication . Vicky Evans MD [facility]/MODL /[id number]
[2020-05-15 05:27] LABS: BASOPHILS % 0.2 % (0.0-1.0); EOSINOPHILS # (AUTO) 0.3 (0.0-0.4); EOSINOPHILS % 2.4 % (0.0-6.0); HEMATOCRIT 44.7 % (38.2-49.6); HEMOGLOBIN 13.4 g/dL (14.0-18.0); LYMPHOCYTES # (AUTO) 1.1 (1.0-3.2); MEAN CORPUSCULAR HEMOGLOBIN 22.6 pg (28-32); MEAN CORPUSCULAR VOLUME 75.4 fL (81-99); MONOCYTES # (AUTO) 1.1 (0.2-0.8); MONOCYTES % 8.6 % (4.4-11.3); NEUTROPHILS # (AUTO) 10.1 (2.1-6.9); NEUTROPHILS % 79.4 % (38.7-80.0); PLATELET COUNT 200 x10e3/uL (140-360); RED BLOOD COUNT 5.93 x10e6/uL (4.3-5.7); RED CELL DISTRIBUTION WIDTH 18.8 % (11.7-14.4)
[2020-05-15 05:53] LABS: ALANINE AMINOTRANSFERASE 125 IU/L (0-55); ALBUMIN 2.3 g/dL (3.5-5.0); ALBUMIN/GLOBULIN RATIO 0.5 (0.8-2.0); ALKALINE PHOSPHATASE 75 IU/L (40-150); ANION GAP 11.5 mmol/L (8-16); BLOOD UREA NITROGEN 15 mg/dL (7-26); BUN/CREATININE RATIO 19 (6-25); CALCIUM 9.3 mg/dL (8.4-10.2); CARBON DIOXIDE 33 mmol/L (22-29); CHLORIDE 97 mmol/L (98-107); CREATININE, SERUM 0.77 mg/dL (0.72-1.25); EST GLOMERULAR FILTRATION RATE > 60 ML/MIN (60-); GLUCOSE 107 mg/dL (74-118); POTASSIUM 5.5 mmol/L (3.5-5.1); SODIUM 136 mmol/L (136-145)
[2020-05-15] MEDS: ENOXAPARIN SOD INJ 40 MG/0.4 ML SYR SC SCH (08:06)
[2020-05-15] MEDS: ASCORBIC ACID 500 MG TAB PO SCH ×2 (08:10→20:40)
[2020-05-15] MEDS: FAMOTIDINE 20 MG TAB PO SCH ×2 (08:10→20:40)
[2020-05-15] MEDS: GUAIFENESIN 600MG/DEXTROMETHORPHAN 30MG TABSR PO SCH (08:10)
[2020-05-15] MEDS: ZINC SULFATE 220 MG CAP PO SCH (08:10)
[2020-05-15] MEDS: CHOLECALCIFEROL 400 UNIT TAB PO SCH ×2 (08:10→20:40)
[2020-05-15] MEDS: DOCUSATE SODIUM 100 MG CAP PO SCH ×2 (08:11→17:00)
[2020-05-15] MEDS ORDERED: FUROSEMIDE INJ 10 MG/ML 2 ML VIAL IV ONE (12:45)
--- NOTE | 2020-05-15 12:47 | Progress Note ---
DATE: SUBJECTIVE: The patient is tachycardic to 130. He is on high-flow nasal cannula with a non-rebreather, superimposed. PHYSICAL EXAMINATION: VITAL SIGNS: Blood pressure is 125/95, saturation is 95%. HEENT: No facial swelling or erythema. LYMPHATIC: No submandibular, cervical, or supraclavicular adenopathy. CARDIAC: Regular rate and rhythm with normal S1, S2. LUNGS: Auscultation of lungs reveals rhonchorous breath sounds bilaterally. There is no wheezing. ABDOMEN: Soft, nontender. There is no rebound or guarding. EXTREMITIES: No leg edema or calf tenderness. There is no cyanosis or clubbing. SKIN: No rashes. NEUROLOGICAL: No focal abnormalities. LABORATORY DATA: White blood cell count is 12.7, hemoglobin is 13.4, and the platelet count is 200. The BUN to creatinine ratio is 15 to 0.77. The potassium is 5.5. The other electrolytes are within normal limits. Albumin is 2.3. IMPRESSION: 1. Acute respiratory failure. 2. Viral pneumonia and coronavirus disease-19 infection. 3. Anemia, unspecified. PLAN: 1. Continue to wean oxygen. 2. Out of bed as tolerated. 3. Lovenox. 4. IV fluids as needed. Pepe Kirkpatrick MD [facility]/MODL /[id number]
--- NOTE | 2020-05-15 13:04 | NUR ---
VITAL SIGNS: Blood pressure is 125/95, saturation is 95%. HEENT: No facial swelling or erythema. LYMPHATIC: No submandibular, cervical, or supraclavicular adenopathy. CARDIAC: Regular rate and rhythm with normal S1, S2. LUNGS: Auscultation of lungs reveals rhonchorous breath sounds bilaterally. There is no wheezing. ABDOMEN: Soft, nontender. There is no rebound or guarding. EXTREMITIES: No leg edema or calf tenderness. There is no cyanosis or clubbing. SKIN: No rashes. NEUROLOGICAL: No focal abnormalities. LABORATORY DATA: White blood cell count is 12.7, hemoglobin is 13.4, and the platelet count is 200. The BUN to creatinine ratio is 15 to 0.77. The potassium is 5.5. The other electrolytes are within normal limits. Albumin is 2.3. [id number]
[2020-05-15] MEDS: DEXMEDETOMIDINE HCL 200 MCG in SODIUM CHLORIDE 0.9% 50ML 48 ML IV SCH (16:30)
--- NOTE | 2020-05-15 17:26 | Diagnostic Imaging Report ---
EXAM: CT Chest WITH contrast 05/15/2020 4:28 PM INDICATION: RULE OUT PE COMPARISON: Multiple prior chest x-ray examinations most recent dated 05/10/2020. TECHNIQUE: Chest was scanned utilizing a multidetector helical scanner from the lung apex through the level of the adrenal glands without administration of IV contrast. Coronal and sagittal reformations were obtained. Routine protocol was performed. IV CONTRAST: 100 mL of Omnipaque 300 COMPLICATIONS: None RADIATION DOSE: Total DLP: 471 mGy*cm Estimated effective dose: (DLP x 0.014 x size factor) mSv CTDIvol has been reviewed. It is below the limits set by the Radiation Protocol Committee (RPC). FINDINGS: LINES/ TUBES: None. LUNGS AND AIRWAYS: No pulmonary embolism to the level of interlobar pulmonary arteries. The segmental and subsegmental pulmonary arteries are not adequately opacified and cannot be evaluated. Diffuse bilateral groundglass opacities and patchy consolidations are compatible with patient's known multifocal pneumonia. Central airways are normal. PLEURA: The pleural spaces are clear. HEART AND MEDIASTINUM: The thyroid gland is normal. No axillary lymphadenopathy. Prominent bilateral hilar or mediastinal lymphadenopathy are reactive. The heart is normal in size.. There is no pericardial effusion. UPPER ABDOMEN: Unremarkable. BONES: Unremarkable. SOFT TISSUES: Unremarkable. IMPRESSION: 1. No pulmonary embolism to the level of interlobar pulmonary arteries. 2. Extensive bilateral multifocal pneumonia as noted on multiple prior chest x-ray examinations. Signed by: Sylvester Gill MD on 05/15/2020 5:23 PM
[2020-05-15] MEDS ORDERED: SODIUM CHLORIDE 0.9% 50ML 50 ML ONE (17:28)
[2020-05-15] MEDS ORDERED: IOPAMIDOL 370 MG/ML 200 ML INFUS..BTL INJ ONE (17:28)
[2020-05-15] MEDS: ATORVASTATIN 20 MG TAB PO SCH (20:39)
[2020-05-15] MEDS: ENOXAPARIN SODIUM INJ 100 MG/ML SYR SC SCH (20:41)
[2020-05-16] VITALS (19 sets, daily range): BP systolic 89–127; BP diastolic 56–92
[2020-05-16] MEDS: CEFEPIME 2 GM/NS 0.9% 100 ML 100 ML IV SCH ×2 (03:22→15:00)
[2020-05-16 05:18] LABS: BASOPHILS # (AUTO) 0.1 (0.0-0.1); BASOPHILS % 0.4 % (0.0-1.0); EOSINOPHILS # (AUTO) 0.3 (0.0-0.4); EOSINOPHILS % 2.1 % (0.0-6.0); HEMATOCRIT 38.9 % (38.2-49.6); HEMOGLOBIN 12.4 g/dL (14.0-18.0); LYMPHOCYTES # (AUTO) 1.1 (1.0-3.2); LYMPHOCYTES % 8.8 % (18.0-39.1); MEAN CORPUSCULAR HEMOGLOBIN 23.8 pg (28-32); MEAN CORPUSCULAR HGB CONC 31.9 g/dL (31-35); MEAN CORPUSCULAR VOLUME 74.8 fL (81-99); MONOCYTES # (AUTO) 0.9 (0.2-0.8); MONOCYTES % 7.3 % (4.4-11.3); NEUTROPHILS # (AUTO) 9.9 (2.1-6.9); NEUTROPHILS % 80.8 % (38.7-80.0); PLATELET COUNT 196 x10e3/uL (140-360); RED CELL DISTRIBUTION WIDTH 19.9 % (11.7-14.4)
[2020-05-16 05:45] LABS: ALANINE AMINOTRANSFERASE 129 IU/L (0-55); ALBUMIN 2.1 g/dL (3.5-5.0); ALBUMIN/GLOBULIN RATIO 0.5 (0.8-2.0); ALKALINE PHOSPHATASE 59 IU/L (40-150); ANION GAP 11.8 mmol/L (8-16); BLOOD UREA NITROGEN 21 mg/dL (7-26); BUN/CREATININE RATIO 28 (6-25); CALCIUM 8.7 mg/dL (8.4-10.2); CARBON DIOXIDE 30 mmol/L (22-29); CHLORIDE 99 mmol/L (98-107); CREATININE, SERUM 0.76 mg/dL (0.72-1.25); EST GLOMERULAR FILTRATION RATE > 60 ML/MIN (60-); GLUCOSE 105 mg/dL (74-118); POTASSIUM 4.8 mmol/L (3.5-5.1); SODIUM 136 mmol/L (136-145)
[2020-05-16] MEDS: ASCORBIC ACID 500 MG TAB PO SCH ×2 (07:54→21:15)
[2020-05-16] MEDS: FAMOTIDINE 20 MG TAB PO SCH ×2 (07:54→21:15)
[2020-05-16] MEDS: ZINC SULFATE 220 MG CAP PO SCH (07:54)
[2020-05-16] MEDS: ENOXAPARIN SODIUM INJ 100 MG/ML SYR SC SCH ×2 (07:54→21:15)
[2020-05-16] MEDS: DOCUSATE SODIUM 100 MG CAP PO SCH ×2 (07:54→16:24)
[2020-05-16] MEDS: GUAIFENESIN 600MG/DEXTROMETHORPHAN 30MG TABSR PO SCH ×3 (07:54→18:16)
[2020-05-16] MEDS: CHOLECALCIFEROL 400 UNIT TAB PO SCH ×2 (07:54→21:15)
[2020-05-16] MEDS: DEXMEDETOMIDINE HCL 200 MCG in SODIUM CHLORIDE 0.9% 50ML 48 ML IV SCH ×2 (08:00→21:15)
--- NOTE | 2020-05-16 10:22 | Progress Note ---
DATE: SUBJECTIVE: The patient had tachycardia yesterday. CT scan of the chest showed no pulmonary embolism. He was restarted on the Vapotherm and his tachycardia improved. He is now on Vapotherm at 25 L with 60% FiO2. He has a non-rebreather superimposed over the Vapotherm. PHYSICAL EXAMINATION: VITAL SIGNS: Blood pressure is 99/75 and the pulse is 91. Saturation is 95%. HEENT: Shows no facial swelling or erythema. LYMPHATIC: The patient shows no submandibular, cervical, or supraclavicular adenopathy. CARDIAC: Reveals regular rate and rhythm with normal S1 and S2. LUNGS: Auscultation of lungs reveals crackles at the bases. There is no wheezing. ABDOMEN: Soft and nontender. There is no rebound or guarding. EXTREMITIES: Shows no leg edema or calf tenderness. There is no cyanosis or clubbing. SKIN: Shows no rashes. NEUROLOGICAL: Shows no focal abnormalities. LABORATORY DATA: White blood cell count is 12.2 and hemoglobin is 12.4. The platelet count is 196. The BUN to creatinine ratio is normal. The albumin is 2.1 and the other electrolytes are within normal limits. IMPRESSION: 1. Acute respiratory failure. 2. Viral pneumonia and COVID-19 infection. 3. Anemia. 4. Tachycardia. PLAN: 1. Remove non-rebreather superimposed over Vapotherm and continue Vapotherm alone. 2. Continue Lovenox. 3. Out of bed as tolerated. 4. Continue Precedex. 5. Complete antibiotics. Pepe Kirkpatrick MD [facility]/MIKEL /[id number]
--- NOTE | 2020-05-16 12:38 | Progress Note ---
DATE: SUBJECTIVE: Mr. Payne remains in intensive care unit. He is on high-flow, is tachycardic today, but otherwise he is still doing well. REVIEW OF SYSTEMS: Otherwise unremarkable. Discussed with the Critical Care. PHYSICAL EXAMINATION: GENERAL: Currently alert, oriented. VITAL SIGNS: Stable, afebrile. HEENT: He is not icteric. NECK: Supple. CHEST: Clear anteriorly. HEART: S1, S2. ABDOMEN: Soft. Bowel sounds present. No tenderness. EXTREMITIES: No edema. SKIN: No rash. IMPRESSION: Respiratory failure, tachycardia concerned and there is component of fluid overload. We will get a BNP. We will give him Lasix 20 IV and then reassess. To follow him for COVID-19, respiratory failure, very slow progress. Discussed with the medical team and follow. MD NELA Curiel/MODAnne /[id number]
--- NOTE | 2020-05-16 15:24 | Progress Note ---
DATE: SUBJECTIVE: Mr. Payne remains in intensive care unit. He remains short of breath on high-flow. No new complaints. A little bit weak. PHYSICAL EXAMINATION: VITAL SIGNS: Stable. Afebrile. HEENT: Normocephalic. CHEST: Few crackles. HEART: S1 and S2. ABDOMEN: Soft. Bowel sounds present. No tenderness. EXTREMITIES: No edema. He is on non-rebreather with flow rate of 25. LABORATORY DATA: White count is 12.19 with hemoglobin 12.89. Sodium 136, potassium 4.8, and creatinine 0.76. The patient is on Lovenox 100 q.12. He is on Mucinex, Colace, ascorbic acid, he is on cefepime. He had a chest CT which showed pulmonary embolism, which was extensive and pneumonia. IMPRESSION: Pulmonary embolism, pneumonia, COVID-19, debility, hypoxemia, pneumonia with Pseudomonas aeruginosa. Continue oxygen due to anticoagulation full dose. Continue antibiotic for 14 days. Continue supportive care, very slow progress. We will follow. MD NELA Curiel/[place] /[id number]
[2020-05-16] MEDS: ATORVASTATIN 20 MG TAB PO SCH (21:15)
[2020-05-17] VITALS (20 sets, daily range): BP systolic 97–131; BP diastolic 66–94
[2020-05-17] MEDS: CEFEPIME 2 GM/NS 0.9% 100 ML 100 ML IV SCH (02:19)
[2020-05-17] MEDS: DEXMEDETOMIDINE HCL 200 MCG in SODIUM CHLORIDE 0.9% 50ML 48 ML IV SCH ×4 (02:20→23:00)
[2020-05-17 04:28] LABS: BASOPHILS % 0.3 % (0.0-1.0); EOSINOPHILS # (AUTO) 0.3 (0.0-0.4); HEMOGLOBIN 12.8 g/dL (14.0-18.0); LYMPHOCYTES % 9.2 % (18.0-39.1); MEAN CORPUSCULAR HEMOGLOBIN 22.5 pg (28-32); MEAN CORPUSCULAR HGB CONC 30.5 g/dL (31-35); MEAN CORPUSCULAR VOLUME 73.8 fL (81-99); MONOCYTES # (AUTO) 0.8 (0.2-0.8); MONOCYTES % 7.4 % (4.4-11.3); NEUTROPHILS % 79.8 % (38.7-80.0); PLATELET COUNT 202 x10e3/uL (140-360); RED BLOOD COUNT 5.69 x10e6/uL (4.3-5.7); RED CELL DISTRIBUTION WIDTH 19.8 % (11.7-14.4)
[2020-05-17 04:44] LABS: ALANINE AMINOTRANSFERASE 100 IU/L (0-55); ALBUMIN 2.2 g/dL (3.5-5.0); ALBUMIN/GLOBULIN RATIO 0.4 (0.8-2.0); ALKALINE PHOSPHATASE 62 IU/L (40-150); ANION GAP 13.3 mmol/L (8-16); BLOOD UREA NITROGEN 23 mg/dL (7-26); BUN/CREATININE RATIO 28 (6-25); CARBON DIOXIDE 27 mmol/L (22-29); CHLORIDE 101 mmol/L (98-107); CREATININE, SERUM 0.83 mg/dL (0.72-1.25); EST GLOMERULAR FILTRATION RATE > 60 ML/MIN (60-); GLUCOSE 104 mg/dL (74-118); POTASSIUM 5.3 mmol/L (3.5-5.1); SODIUM 136 mmol/L (136-145)
[2020-05-17] MEDS: DOCUSATE SODIUM 100 MG CAP PO SCH ×2 (09:00→17:00)
[2020-05-17] MEDS: ZINC SULFATE 220 MG CAP PO SCH (09:00)
[2020-05-17] MEDS: ASCORBIC ACID 500 MG TAB PO SCH ×2 (09:00→21:39)
[2020-05-17] MEDS: CHOLECALCIFEROL 400 UNIT TAB PO SCH ×2 (09:00→21:39)
[2020-05-17] MEDS: GUAIFENESIN 600MG/DEXTROMETHORPHAN 30MG TABSR PO SCH ×2 (09:00→17:00)
[2020-05-17] MEDS: FAMOTIDINE 20 MG TAB PO SCH ×2 (09:00→21:39)
[2020-05-17] MEDS: ENOXAPARIN SODIUM INJ 100 MG/ML SYR SC SCH ×2 (09:00→21:39)
--- NOTE | 2020-05-17 09:20 | NUR ---
Car Sweeper called pt's father to provide spiritual/emotional support. No answer. Will follow up as able. [facility] O: [phone]
--- NOTE | 2020-05-17 10:53 | Progress Note ---
DATE: CONSULTING PHYSICIANS: 1. Dr. Vicky Evans with Infectious Disease. 2. Dr. Pepe Kirkpatrick with Pulmonology/Critical Care Medicine. SUBJECTIVE: The patient is still complaining of cough. He has dyspnea on exertion, especially with any movement. He does like to get out of bed and try to use a bedside commode, which is counterproductive in his case. OBJECTIVE: VITAL SIGNS: Temperature 98.5, heart rate 105, blood pressure 150/99, respirations 28, and oxygen saturation 89%. GENERAL: The patient is supine, not prone. LUNGS: With bibasilar crackles. Currently, on Vapotherm 25 L/minute, FiO2 of 60% plus non-rebreather mask, oxygen saturation 100% at the time of encounter, and blood pressure 120/86. HEENT: EOMI. NECK: Supple. No JVD. CARDIOVASCULAR: Regular rate and rhythm. No murmur. ABDOMEN: Bowel sounds positive. Soft, nontender. EXTREMITIES: Without pitting edema. No clubbing, cyanosis, or notable swelling. SCDs are currently off. NEUROLOGICAL: GCS is 15. Nonfocal. LABORATORY DATA: WBCs 12.15, hemoglobin 11.9, hematocrit 39.5, and platelets 221. Sodium 135, potassium 4.3, chloride 100, CO2 of 29, anion gap 10.3, BUN 14, creatinine 0.66, estimated GFR greater than 60, glucose 106. Fingerstick blood glucose 122, calcium 8.4, total bilirubin 0.8. AST 61, ALT 108, alkaline phosphatase 49, total protein 6.3, albumin 2.1. Chest x-ray today showed no significant interval change in bilateral airspace opacities compatible multifocal pneumonia. ASSESSMENT AND PLAN: 1. Acute respiratory failure. Continue to wean Vapotherm to high-flow oxygen as tolerated, non-rebreather mask still being worn, but we were able to get his Vapotherm from 33 to 25 L/minute and FiO2 has been weaned from 65% to 60%. 2. Viral community-acquired pneumonia due to COVID-19, POA. Decadron was completed. Continue Lovenox and sulfate, vitamin D, vitamin C. 3. Superimposed healthcare-associated aspiration pneumonia with Pseudomonas aeruginosa. Complete 14 days of cefepime as per ID recommendations. 4. Microcytic anemia. Hemoglobin 11.9. Monitor. 5. Transaminitis. AST 61, ALT 108. Monitor. 6. Prophylaxis. Lovenox and Pepcid. BILLING CODE: [id number]. TIME SPENT: 35 minutes. Dictated by Lang North, YARD SPOTTER MD SERINA Kelley/MODL /[id number]
--- NOTE | 2020-05-17 10:58 | Progress Note ---
DATE: SUBJECTIVE: The patient experiencing a coughing episode during encounter, persistent cough. He did not eat dinner. Denies having diarrhea. He was on Vapotherm last night, but has advanced and weaned to the Airvo. OBJECTIVE: VITAL SIGNS: Temperature 97.3, and has been afebrile. Heart rate 95, blood pressure 107/68, respirations 22, oxygen saturation 92%. GENERAL: The patient is seen in [facility] ICU 11 with coughing fit. LUNGS: With bibasilar crackles. Currently on Airvo 15 L/minute along with non-rebreather mask, FiO2 of 100% with oxygen saturation of 87% at time of encounter. HEENT: EOMI. NECK: Supple. CARDIOVASCULAR: Regular rate and rhythm. No murmur. ABDOMEN: Bowel sounds positive. Soft, nontender. No guarding. EXTREMITIES: Without pitting edema. No clubbing, cyanosis, or signs of DVT. NEUROLOGICAL: Sedated with Precedex 0.8 mcg/kg/hour. LABORATORY DATA: WBCs 12.19, hemoglobin 12.4, hematocrit 38.9, and platelets 196. Sodium 136, potassium 4.8, chloride 99, CO2 of 30, anion gap 11.8, BUN 21, creatinine 0.76, estimated GFR greater than 60, glucose 105, calcium 8.7, total bilirubin 0.8, AST 70, ALT 129, alkaline phosphatase 59, total protein 6.7, albumin 2.1. Fingerstick blood glucose level 91. The CT of the chest was done yesterday evening, impression, no pulmonary embolism to the level of interlobar pulmonary arteries, extensive bilateral multifocal pneumonia as noted on multiple prior chest x-ray exams. ASSESSMENT AND PLAN: 1. Acute respiratory failure. Continue to use Precedex sedation. The patient has been weaned off Vapotherm and is now on Airvo and continue to wean Airvo, hopefully get him down to high-flow oxygen. 2. Viral community-acquired pneumonia due to coronavirus disease-19, present on admission. Continue Lovenox, zinc sulfate, vitamin C, vitamin D. Decadron has been completed. 3. Superimposed healthcare-associated aspiration pneumonia with Pseudomonas aeruginosa. Continue cefepime for a total of 14 days per ID recommendations. WBC 12.1, afebrile. 4. Acute hyperkalemia, potassium 4.8 (5.5), improved. 5. Transaminitis. AST 70, ALT 129, alkaline phosphatase 59. Continue to monitor. 6. Prophylaxis. Lovenox and Pepcid. Billing code [id number]. Time spent 35 minutes. Dictated by Lang North, CLUB ROOM ATTENDANT MD ANDRÉS KelleyP/MODL /[id number]
--- NOTE | 2020-05-17 19:49 | Progress Note ---
DATE: SUBJECTIVE: Mr. Payne has been here for 19 days. He is still having shortness of breath and cough. He is on Vapotherm. Slowly being weaned off. PHYSICAL EXAMINATION: VITAL SIGNS: Stable. Afebrile. HEENT: Normocephalic. NECK: Supple. CHEST : Few crackles. HEART: S1 and S2. ABDOMEN: Soft. LABORATORY DATA: White count 12.9, hemoglobin 12.4, hematocrit 38, platelet 196, sodium 136, potassium 4.8. IMPRESSION: 1. Respiratory failure, slowly being weaned off. COVID-19. Finish the course of treatment of the initial antibiotic as well as steroid. He remains on anticoagulation. 2. For his bacterial pneumonia, he is on cefepime. 3. Elevated liver enzymes. Recheck. Continue Lovenox as ordered . 4. Pulmonary embolism, probably getting better. MD NELA Curiel/MODL /[id number]
--- NOTE | 2020-05-17 20:41 | Progress Note ---
DATE: Pulmonary Critical Care Progress Note SUBJECTIVE: The patient is having more trouble breathing. He also noted some anxiety last night. PHYSICAL EXAMINATION: VITAL SIGNS: The blood pressure is 122/79, saturation is 98% on Vapotherm at 40 L with 100%. He is on non-rebreather as well. HEENT: Shows no facial swelling or erythema. LYMPHATIC: Shows no submandibular, cervical, or supraclavicular adenopathy. CARDIAC: Reveals regular rate and rhythm with normal S1 and S2. LUNGS: Auscultation of lungs reveals rhonchorous breath sounds bilaterally. There is no wheezing. ABDOMEN: Soft and nontender. There is no rebound or guarding. EXTREMITIES: Shows no leg edema or calf tenderness. There is no cyanosis or clubbing. SKIN: Shows no rashes. NEUROLOGICAL: Shows no focal abnormalities. LABORATORY DATA: White blood cell count is 11.2, hemoglobin is 12.8. The platelet count is 202. IMPRESSION: 1. Acute respiratory failure. 2. Viral pneumonia and COVID-19 infection. 3. Anemia. 4. Tachycardia. PLAN: 1. Plate the patient in the prone position. 2. Speech therapy evaluation to rule out recurrent aspiration. 3. Complete antibiotics. 4. Lovenox. MD RYNE Martinez/[place] /[id number]
[2020-05-17] MEDS: ATORVASTATIN 20 MG TAB PO SCH (21:39)
[2020-05-18] VITALS (25 sets, daily range): BP systolic 80–141; BP diastolic 48–112
[2020-05-18] MEDS: DEXMEDETOMIDINE HCL 200 MCG in SODIUM CHLORIDE 0.9% 50ML 48 ML IV SCH ×3 (01:12→16:49)
[2020-05-18 05:17] LABS: BASOPHILS % 0.4 % (0.0-1.0); EOSINOPHILS # (AUTO) 0.4 (0.0-0.4); EOSINOPHILS % 3.1 % (0.0-6.0); HEMATOCRIT 39.3 % (38.2-49.6); LYMPHOCYTES # (AUTO) 1.2 (1.0-3.2); LYMPHOCYTES % 10.4 % (18.0-39.1); MEAN CORPUSCULAR HEMOGLOBIN 25.6 pg (28-32); MEAN CORPUSCULAR HGB CONC 33.1 g/dL (31-35); MEAN CORPUSCULAR VOLUME 77.4 fL (81-99); MONOCYTES # (AUTO) 0.8 (0.2-0.8); MONOCYTES % 7.2 % (4.4-11.3); NEUTROPHILS # (AUTO) 8.7 (2.1-6.9); NEUTROPHILS % 78.5 % (38.7-80.0); PLATELET COUNT 144 x10e3/uL (140-360); RED BLOOD COUNT 5.08 x10e6/uL (4.3-5.7); RED CELL DISTRIBUTION WIDTH 23.1 % (11.7-14.4)
[2020-05-18 05:43] LABS: ALANINE AMINOTRANSFERASE 89 IU/L (0-55); ALBUMIN 2.3 g/dL (3.5-5.0); ALBUMIN/GLOBULIN RATIO 0.5 (0.8-2.0); ALKALINE PHOSPHATASE 58 IU/L (40-150); ANION GAP 15.6 mmol/L (8-16); BLOOD UREA NITROGEN 22 mg/dL (7-26); BUN/CREATININE RATIO 28 (6-25); CALCIUM 8.8 mg/dL (8.4-10.2); CARBON DIOXIDE 26 mmol/L (22-29); CHLORIDE 100 mmol/L (98-107); CREATININE, SERUM 0.79 mg/dL (0.72-1.25); EST GLOMERULAR FILTRATION RATE > 60 ML/MIN (60-); GLUCOSE 114 mg/dL (74-118); POTASSIUM 4.6 mmol/L (3.5-5.1); SODIUM 137 mmol/L (136-145)
--- NOTE | 2020-05-18 08:28 | Progress Note ---
DATE: CONSULTING PHYSICIANS: Dr. Vicky Evans with Infectious Disease and Dr. Pepe Kirkpatrick with Pulmonology Critical Care Medicine. SUBJECTIVE: The patient is supine in bed with head of bed elevated, still receiving albuterol neb treatments, has not been doing well lately, but today is feeling a bit better or starting to be able to wean his Vapotherm. OBJECTIVE: VITAL SIGNS: Temperature 98.2, heart rate 105 and later 110, blood pressure 112/86, respirations 20, oxygen saturation 100%. He has been afebrile. GENERAL: No acute distress. LUNGS: Bibasilar crackles, Vapotherm at 33 L/minute with FiO2 of 65%. HEENT: EOMI. NECK: Supple. CARDIOVASCULAR: Regular rate and rhythm. No murmur. ABDOMEN: Bowel sounds positive. Soft, nontender. EXTREMITIES: No pitting edema. No clubbing, cyanosis, or signs of DVT. NEUROLOGIC: GCS 14 to 15. Nonfocal. LABORATORY DATA: Sodium 136, potassium 4.4, chloride 103, CO2 27, anion gap 10.4, BUN 19, creatinine 0.67, estimated GFR greater than 60, glucose 113, calcium 8.4, total bilirubin 0.8, AST 66, ALT 108, alkaline phosphatase 50, total protein 6.1, albumin 2.1. Fingerstick blood glucose levels 128 and 110, WBCs 11.09, hemoglobin 12.5, hematocrit 41.4, platelets 234,000. Sputum Gram stain culture and sensitivity collected on 05/07 is growing Pseudomonas aeruginosa. ASSESSMENT AND PLAN: 1. Acute respiratory failure. Continue to wean Vapotherm down to high-flow oxygen as tolerated. Yesterday, the patient was on 40 L/minute, now is on 33 L/minute and FiO2 was weaned from 70% to 65%. 2. Viral community-acquired pneumonia due to COVID-19, POA. Continue Lovenox, zinc sulfate, vitamin C, and vitamin D. Decadron has been completed. 3. Superimposed healthcare associated aspiration bacterial pneumonia with Pseudomonas aeruginosa, vancomycin was discontinued. Plan is for 14 days of cefepime. 4. Microcytic anemia. Hemoglobin 12.5, stable. 5. Transaminitis. AST 66, ALT 108. 6. Prophylaxis. Lovenox and Pepcid. Billing code [id number]. Time spent 35 minutes. Dictated by Lang W Can, TECHNICIAN ANATOMIC PATHOLOGY MD SERINA Kelley/[place] /[id number]
--- NOTE | 2020-05-18 08:28 | Progress Note ---
DATE: 05/15/2020 DATE OF SERVICE: May 15, 2020. CONSULTING PHYSICIANS: Dr. Vicky Evans with Infectious Disease and Dr. Pepe Kirkpatrick with Pulmonology Critical Care Medicine. SUBJECTIVE: Per the nurse, the patient was to get out of bed to the bedside commode for bowel movements, but he is really too short of breath to do this. She reports no PVCs or dysrhythmias. OBJECTIVE: VITAL SIGNS: Temperature 98.9, heart rate 111, respirations 30, blood pressure 134/88, oxygen saturation 85%. GENERAL: The patient positioned on his right side. LUNGS: Bibasilar crackles. Vapotherm at 25 L/minute with FiO2 of 60% along with a non-rebreather mask with FiO2 of 100%, oxygen saturation 96% at the time of encounter. HEENT: EOMI. NECK: Supple. CARDIOVASCULAR: Regular rate and rhythm. No murmur. ABDOMEN: Bowel sounds positive. Soft, nontender. EXTREMITIES: No pitting edema. No clubbing, cyanosis, or signs of DVT. NEUROLOGIC: Precedex drip being utilized for sedation 0.4 mcg/kg per minute. LABORATORY DATA: WBCs 12.68, hemoglobin 13.4, hematocrit 44.7, platelets 200,000. Sodium 136, potassium 5.5, chloride 97, CO2 33, anion gap 11.5, BUN 15, creatinine 0.77, estimated GFR greater than 60, glucose 107, fingerstick blood glucose level 102, calcium 9.3, total bilirubin 0.8, AST 72, ALT 125, alkaline phosphatase 75, total protein 7, albumin 2.3. CT of the chest has been ordered, results are pending. ASSESSMENT AND PLAN: 1. Acute respiratory failure. Wean Vapotherm to high-flow oxygen as tolerated. Generally stable over the last 24 hours, unable to wean much. 2. Viral community-acquired pneumonia due to COVID-2019, present on admission. Continued Lovenox, zinc sulfate, vitamin C, and vitamin D. Decadron is completed. 3. Superimposed healthcare associated aspiration pneumonia with Pseudomonas aeruginosa. Vancomycin was discontinued several days ago. The patient is to continue with cefepime for a total of 14 days per recommendations from Infectious Disease. 4. Transaminitis. AST 72, ALT 125, alkaline phosphatase 75. Monitor. 5. Hyperkalemia. Potassium level 5.5. Reassess chemistry in the morning. 6. Prophylaxis, Lovenox and Pepcid. Billing code [id number]. Time spent 35 minutes. Dictated by Lang North, ORACLE FUSION CONSULTANT MD SERINA Kelley/MIKEL /[id number]
--- NOTE | 2020-05-18 08:28 | Progress Note ---
DATE: 05/13/2020 SUBJECTIVE: The patient's chief complaint is cough. He still has sore throat and chest pain, which are likely from the cough. Last bowel movement 05/12. At the time of encounter, heart rate 117, oxygen saturation 98%. Blood pressure 119/78. OBJECTIVE: Earlier this morning at 07:00 a.m., VITAL SIGNS: Temperature 99.2, heart rate 92, blood pressure 145/98, respirations 222, oxygen saturation 98%. GENERAL: The patient remains in [facility] bed 11. He remains supine, has not required proning. LUNGS: Bibasilar crackles. Vapotherm at 30 L/minute with FiO2 of 65% along with a non-rebreather mask with oxygen saturation 98%. HEENT: EOMI. NECK: Supple. No JVD. CARDIOVASCULAR: Regular rate and rhythm. No murmur. ABDOMEN: Bowel sounds positive. Soft, nontender. EXTREMITIES: Without pitting edema. No clubbing, cyanosis, or signs of DVT. NEUROLOGIC: GCS 14 to 15. Nonfocal. LABORATORY DATA: Fingerstick blood glucose level 101 and 115, no new imaging results. ASSESSMENT AND PLAN: 1. Acute respiratory failure. Wean Vapotherm to high-flow oxygen as tolerated. He weaned well over the last couple of days, but now non-rebreather mask has been added. 2. Viral community-acquired pneumonia due to COVID-2019, present on admission. Decadron is completed. Continue Lovenox, Zinc sulfate, vitamin C and vitamin D. 3. Superimposed healthcare associated aspiration pneumonia with Pseudomonas aeruginosa. Continue cefepime for a total of 14 days per ID recommendations. 4. Microcytic anemia. Hemoglobin 12.5 yesterday, lab holiday today. 5. Transaminitis. 6. Prophylaxis. Lovenox and Pepcid. Billing code [id number]. Time spent 35 minutes. Dictated by Lang North NP Shaka Humphreys MD [facility]/MODL /[id number]
[2020-05-18] MEDS: DOCUSATE SODIUM 100 MG CAP PO SCH ×2 (08:35→16:41)
[2020-05-18] MEDS: GUAIFENESIN 600MG/DEXTROMETHORPHAN 30MG TABSR PO SCH ×2 (08:36→16:41)
[2020-05-18] MEDS: ASCORBIC ACID 500 MG TAB PO SCH ×2 (08:36→21:05)
[2020-05-18] MEDS: FAMOTIDINE 20 MG TAB PO SCH ×2 (08:36→21:05)
[2020-05-18] MEDS: CHOLECALCIFEROL 400 UNIT TAB PO SCH ×2 (08:36→21:05)
[2020-05-18] MEDS: ENOXAPARIN SODIUM INJ 100 MG/ML SYR SC SCH ×2 (08:36→21:05)
[2020-05-18] MEDS: ZINC SULFATE 220 MG CAP PO SCH (08:36)
[2020-05-18] MEDS ORDERED: HYDROCODONE/CHLORPHENIRAMINE 5 ML LIQCR PO PRN (10:15)
--- NOTE | 2020-05-18 10:53 | Progress Note ---
DATE: SUBJECTIVE: The patient is off the non-rebreather and is on an Airvo at this time. He is on 35 L and 94% FiO2. He is less tachycardic. PHYSICAL EXAMINATION: VITAL SIGNS: The blood pressure is 108/71 and saturation is 99% on the above settings. The pulse is 90. HEENT: Shows no facial swelling or erythema. CARDIAC: Reveals regular rate and rhythm with normal S1 and S2. LUNGS: Auscultation of lungs reveals crackles at the bases. There is no wheezing. ABDOMEN: Soft and nontender. There is no rebound or guarding. EXTREMITIES: Shows no leg edema or calf tenderness. There is no cyanosis or clubbing. SKIN: Shows no rashes. NEUROLOGICAL: Shows no focal abnormalities. LABORATORY DATA: White blood cell count is 11.1 and hemoglobin is 13. The platelet count is 144. The BUN to creatinine ratio is 22 to 0.79. Other electrolytes are within normal limits. The albumin is 2.3. IMPRESSION: 1. Acute respiratory failure. 2. Viral pneumonia and COVID-19 infection. 3. Anemia. 4. Tachycardia. PLAN: 1. Continue to wean Vapotherm as tolerated. 2. Await speech therapy evaluation. 3. Continue Lovenox. 4. Place the patient in prone position again this evening. Pepe Kirkpatrick MD [facility]/MODL /[id number]
--- NOTE | 2020-05-18 14:05 | Diagnostic Imaging Report ---
EXAM: CHEST SINGLE (PORTABLE) DATE: 05/18/2020 6:50 AM INDICATION: Respiratory failure COMPARISON: CT chest from 05/15/2020 FINDINGS: The trachea is midline. There are extensive patchy airspace opacities identified throughout the lungs bilaterally, similar to prior examinations. There is no evidence for pneumothorax or significant volume pleural effusion. The cardiomediastinal silhouette is stable in appearance. No acute osseous abnormalities identified. IMPRESSION: Grossly stable appearing airspace opacities identified throughout the lungs bilaterally which can be seen in the setting of a multifocal/viral infectious process. Signed by: Dr. Vlad Odom MD on 05/18/2020 2:01 PM
--- NOTE | 2020-05-18 18:35 | Progress Note ---
DATE: SUBJECTIVE: Mr. Payne remains in intensive care unit. This is day #20 of hospitalization. He is off the non-rebreather, on Revo at 35 L with 95%. He is feeling okay, weak, feels dyspnea on exertion. No new complaint. REVIEW OF SYSTEMS: Otherwise unremarkable. PHYSICAL EXAMINATION: GENERAL: Currently alert. VITAL SIGNS: Stable, afebrile. HEENT: Not icteric. NECK: Supple. CHEST: Few crackles bilaterally. HEART: S1, S2. ABDOMEN: Soft. LABORATORY DATA: White cell is 11. Platelet is 144. BUN is 22 and creatinine 0.79. IMPRESSION: Respiratory failure, viral pneumonia, coronavirus disease-19, very slow progress. Continue with Lovenox. Continue Lipitor, off antibiotic. We will follow. MD NELA Curiel/MODL /[id number]
[2020-05-18] MEDS: ATORVASTATIN 20 MG TAB PO SCH (21:05)
[2020-05-19] VITALS (25 sets, daily range): BP systolic 97–123; BP diastolic 66–86
[2020-05-19 05:03] LABS: BASOPHILS # (AUTO) 0.1 (0.0-0.1); BASOPHILS % 0.7 % (0.0-1.0); EOSINOPHILS # (AUTO) 0.5 (0.0-0.4); EOSINOPHILS % 6.3 % (0.0-6.0); HEMATOCRIT 43.3 % (38.2-49.6); HEMOGLOBIN 13.3 g/dL (14.0-18.0); LYMPHOCYTES # (AUTO) 1.5 (1.0-3.2); LYMPHOCYTES % 17.5 % (18.0-39.1); MEAN CORPUSCULAR HEMOGLOBIN 23.2 pg (28-32); MEAN CORPUSCULAR HGB CONC 30.7 g/dL (31-35); MEAN CORPUSCULAR VOLUME 75.6 fL (81-99); MONOCYTES # (AUTO) 0.7 (0.2-0.8); MONOCYTES % 7.9 % (4.4-11.3); NEUTROPHILS # (AUTO) 5.7 (2.1-6.9); NEUTROPHILS % 67.4 % (38.7-80.0); PLATELET COUNT 192 x10e3/uL (140-360); RED BLOOD COUNT 5.73 x10e6/uL (4.3-5.7); RED CELL DISTRIBUTION WIDTH 20.1 % (11.7-14.4)
[2020-05-19 05:26] LABS: ALANINE AMINOTRANSFERASE 71 IU/L (0-55); ALBUMIN 2.4 g/dL (3.5-5.0); ALBUMIN/GLOBULIN RATIO 0.5 (0.8-2.0); ALKALINE PHOSPHATASE 60 IU/L (40-150); ANION GAP 15.2 mmol/L (8-16); BLOOD UREA NITROGEN 23 mg/dL (7-26); BUN/CREATININE RATIO 31 (6-25); CALCIUM 8.5 mg/dL (8.4-10.2); CARBON DIOXIDE 25 mmol/L (22-29); CHLORIDE 101 mmol/L (98-107); CREATININE, SERUM 0.75 mg/dL (0.72-1.25); EST GLOMERULAR FILTRATION RATE > 60 ML/MIN (60-); GLUCOSE 86 mg/dL (74-118); POTASSIUM 4.2 mmol/L (3.5-5.1); SODIUM 137 mmol/L (136-145)
[2020-05-19] MEDS: DEXMEDETOMIDINE HCL 200 MCG in SODIUM CHLORIDE 0.9% 50ML 48 ML IV SCH ×2 (07:39→15:00)
[2020-05-19] MEDS: ZINC SULFATE 220 MG CAP PO SCH (08:07)
[2020-05-19] MEDS: DOCUSATE SODIUM 100 MG CAP PO SCH ×2 (08:07→16:02)
[2020-05-19] MEDS: ENOXAPARIN SODIUM INJ 100 MG/ML SYR SC SCH ×2 (08:07→21:00)
[2020-05-19] MEDS: ASCORBIC ACID 500 MG TAB PO SCH ×2 (08:07→21:00)
[2020-05-19] MEDS: CHOLECALCIFEROL 400 UNIT TAB PO SCH ×2 (08:07→21:00)
[2020-05-19] MEDS: GUAIFENESIN 600MG/DEXTROMETHORPHAN 30MG TABSR PO SCH ×2 (08:07→16:02)
[2020-05-19] MEDS: FAMOTIDINE 20 MG TAB PO SCH (08:07)
--- NOTE | 2020-05-19 08:52 | Diagnostic Imaging Report ---
X-ray chest AP portable Comparison: 05/14/2020 History: Viral pneumonia Findings: Central airways unremarkable. Heart size borderline. Unremarkable aorta contour. No definite pleural effusion. No pneumothorax. Bilateral dense pulmonary infiltrates right more than left spread throughout the lung pimentel and heterogeneous distribution. Visualized skeletal structures and upper abdomen unremarkable. Impression: Diffuse bilateral pulmonary disease with slight improvement in the right midlung zone and the left midlung zone. Signed by: Thang Ceballos MD on 05/19/2020 8:49 AM
--- NOTE | 2020-05-19 10:10 | NUR ---
Scanning Manager called pt's father, Mo Payne, ([phone]) to offer emotional/spiritual support. No answer. [facility] O: [phone]
--- NOTE | 2020-05-19 11:55 | Diagnostic Imaging Report ---
Modified Barium Swallow: Clinical History: Aspiration Comparison: None Fluoro time in minutes: 1.4 Radiation dose: 6.8 mGy air Kerma. Number of images: Multiple Report: The patient ingested various consistencies of barium with a speech pathologist in attendance. A full report from speech pathology will follow. Impression: Fluoroscopy service provided to speech pathology as above. Signed by: Thang Ceballos MD on 05/19/2020 11:52 AM
--- NOTE | 2020-05-19 17:15 | Progress Note ---
DATE: SUBJECTIVE: The patient is less tachycardic today. He has less dyspnea. He was evaluated by speech therapy. He does not have any hossein aspiration. He does have some acid reflux. PHYSICAL EXAMINATION: VITAL SIGNS: The heart rate is 102. The blood pressure is 106/75 and saturation is 96% on an Airvo at 50 L with 70% oxygen. HEENT: Shows no facial swelling or erythema. CARDIAC: Reveals regular rate and rhythm with normal S1 and S2. LUNGS: Auscultation of lungs reveals rhonchorous breath sounds bilaterally. There is no wheezing. ABDOMEN: Soft and nontender. There is no rebound or guarding. EXTREMITIES: Shows no leg edema or calf tenderness. There is no cyanosis or clubbing. SKIN: Shows no rashes. IMPRESSION: 1. Acute respiratory failure. 2. Viral pneumonia and COVID-19 infection. 3. Gastroesophageal reflux. 4. Anemia. PLAN: 1. Continue to wean Airvo as tolerated. 2. Begin Protonix and Pepcid. 3. Continue Lovenox. 4. Continue to monitor blood counts. Pepe Kirkpatrick MD [facility]/MOD[facility] /[id number]
[2020-05-19] MEDS: PANTOPRAZOLE 40 MG 10ML VIAL IV SCH (17:45)
[2020-05-19] MEDS: FAMOTIDINE 20 MG/2 ML VIAL IV SCH (17:45)
--- NOTE | 2020-05-19 19:30 | Progress Note ---
DATE: SUBJECTIVE: Mr. Payne is day #21 in the hospital, remains in intensive care unit. He is still on a non-rebreather. He is feeling better. REVIEW OF SYSTEMS: Otherwise unremarkable encouraged to push p.o. nutrition. Review of systems otherwise beside the weakness and shortness of breath he denies any. PHYSICAL EXAMINATION: GENERAL: Currently alert, oriented. VITAL SIGNS: Stable, afebrile. HEENT: He is not icteric. NECK: Supple. CHEST: Clear bilaterally. HEART: S1, S2. No S3, S4, or murmur. ABDOMEN: Soft. Bowel sounds present. No tenderness. EXTREMITIES: No edema. SKIN: No rash. IMPRESSION: Coronavirus disease-19, respiratory failure, debility, slowly getting better. Continue supportive care as ordered. Off antibiotic. Oxygen as needed. MD NELA Curiel/MODL /[id number]
[2020-05-19] MEDS: ATORVASTATIN 20 MG TAB PO SCH (21:00)
[2020-05-20] VITALS (25 sets, daily range): BP systolic 87–122; BP diastolic 53–81
[2020-05-20 03:54] LABS: BASOPHILS % 0.5 % (0.0-1.0); EOSINOPHILS # (AUTO) 0.5 (0.0-0.4); EOSINOPHILS % 7.1 % (0.0-6.0); HEMATOCRIT 42.5 % (38.2-49.6); HEMOGLOBIN 13.1 g/dL (14.0-18.0); LYMPHOCYTES # (AUTO) 1.4 (1.0-3.2); MEAN CORPUSCULAR HEMOGLOBIN 22.9 pg (28-32); MEAN CORPUSCULAR HGB CONC 30.8 g/dL (31-35); MEAN CORPUSCULAR VOLUME 74.2 fL (81-99); MONOCYTES # (AUTO) 0.6 (0.2-0.8); MONOCYTES % 8.8 % (4.4-11.3); NEUTROPHILS # (AUTO) 4.7 (2.1-6.9); NEUTROPHILS % 64.3 % (38.7-80.0); PLATELET COUNT 213 x10e3/uL (140-360); RED BLOOD COUNT 5.73 x10e6/uL (4.3-5.7)
[2020-05-20 04:12] LABS: ALANINE AMINOTRANSFERASE 65 IU/L (0-55); ALBUMIN 2.4 g/dL (3.5-5.0); ALBUMIN/GLOBULIN RATIO 0.5 (0.8-2.0); ALKALINE PHOSPHATASE 55 IU/L (40-150); ANION GAP 14.6 mmol/L (8-16); BLOOD UREA NITROGEN 19 mg/dL (7-26); BUN/CREATININE RATIO 25 (6-25); CALCIUM 8.6 mg/dL (8.4-10.2); CARBON DIOXIDE 27 mmol/L (22-29); CHLORIDE 102 mmol/L (98-107); CREATININE, SERUM 0.77 mg/dL (0.72-1.25); EST GLOMERULAR FILTRATION RATE > 60 ML/MIN (60-); GLUCOSE 97 mg/dL (74-118); POTASSIUM 4.6 mmol/L (3.5-5.1); SODIUM 139 mmol/L (136-145)
[2020-05-20] MEDS: DEXMEDETOMIDINE HCL 200 MCG in SODIUM CHLORIDE 0.9% 50ML 48 ML IV SCH ×4 (07:00→21:56)
--- NOTE | 2020-05-20 08:00 | NUR ---
Patient up to bedside commode at this time. Moderate weakness noted, sats noted 86%. Pt assisted back to bed, sats noted 90%. Patient resting comfortably at this time.
[2020-05-20] MEDS: ASCORBIC ACID 500 MG TAB PO SCH ×2 (09:20→21:25)
[2020-05-20] MEDS: ZINC SULFATE 220 MG CAP PO SCH (09:20)
[2020-05-20] MEDS: CHOLECALCIFEROL 400 UNIT TAB PO SCH ×2 (09:20→21:25)
[2020-05-20] MEDS: PANTOPRAZOLE 40 MG 10ML VIAL IV SCH (09:20)
[2020-05-20] MEDS: GUAIFENESIN 600MG/DEXTROMETHORPHAN 30MG TABSR PO SCH ×2 (09:20→17:01)
[2020-05-20] MEDS: DOCUSATE SODIUM 100 MG CAP PO SCH ×2 (09:20→17:01)
[2020-05-20] MEDS: FAMOTIDINE 20 MG/2 ML VIAL IV SCH ×2 (09:20→17:01)
[2020-05-20] MEDS: ENOXAPARIN SODIUM INJ 100 MG/ML SYR SC SCH ×2 (09:20→21:25)
--- NOTE | 2020-05-20 09:53 | Progress Note ---
DATE: SUBJECTIVE: The patient is still short of breath, but he is using less oxygen. He is on an Airvo with 60% oxygen and 50 L. PHYSICAL EXAMINATION: VITAL SIGNS: Blood pressure is 108/81, saturation is 97%. Heart rate is 95 to 105. HEENT: Shows no facial swelling or erythema. LYMPHATIC: Shows no submandibular, cervical, or supraclavicular adenopathy. CARDIAC: Reveals regular rate and rhythm with normal S1, S2. LUNGS: Auscultation of lungs reveals rhonchorous breath sounds bilaterally. There is no wheezing. ABDOMEN: Soft and nontender. There is no rebound or guarding. EXTREMITIES: Shows no leg edema or calf tenderness. There is no cyanosis or clubbing. SKIN: Shows no rashes. NEUROLOGICAL: Shows no focal abnormalities. LABORATORY DATA: [id number] and electrolytes are within normal limits. Albumin is 2.4. White blood cell count is 7.3 and hemoglobin is 13.1. The platelet count is 213. IMPRESSION: 1. Acute respiratory failure. 2. Viral pneumonia and COVID-19 infection. 3. Gastroesophageal reflux. 4. Anemia. PLAN: 1. Continue to wean L flow and oxygen on Airvo. 2. Continue Protonix and Pepcid. 3. Continue Lovenox. 4. Transfer out of the Intensive Care unit when the patient is improved. MD RYNE Martinez/[place] /[id number]
--- NOTE | 2020-05-20 15:46 | NUR ---
Nutrition Screen Note RD Recommendation for Physician: -Continue current diet regimen Plan of Care: RD following, monitoring for tolerance and adequacy Nutrition reason for involvement: follow up Primary Diagnose(s): acute respiratory disease due to COVID-19 virus PMH: Hyperlipidemia and dislocated elbow Ht: 71 in Wt:215 lb BMI: 30 kg/m2 IBW:[address] Assessment: 05/20: Follow up. Chart reviewed. It is recorded that pt is consuming 75-100% of meals. Will continue to monitor. 05/13: Follow up. Chart reviewed. RD called pts nurse over the phone. RN stated that pt consumed all of his breakfast this morning and is drinking Ensure. Will continue to monitor. 05/06: Follow up. Chart reviewed. RD called pt's nurse over the phone. RN stated pt is consuming 75% of his meals and is drinking Ensure nutrition supplements. Will continue to monitor. (04/29/20) Chart reviewed. Labs and meds reviewed. Pt is a 49 year old male admitted with acute respiratory disease due to COVID-19. Pt was transferred to the [facility] ICU and is on high-flow oxygen. Unable to speak to pt due to isolation restrictions. Pt is currently on a cardiac diet with Ensure Enlive ordered BID. It is recorded that pt consumed 75% of lunch today and 100% of dinner yesterday. There are no previous weights in chart. Will continue to monitor. Current Diet: cardiac diet with Ensure Enlive TID Malnutrition Evaluation (04/29/20) Unable to speak to pt. Will re-evaluate at follow-up as appropriate. Diet Education Needs Assessment: RD is available for diet education as needed Nutrition Care Level: low Signed: Kiana Purdy RD, LD
--- NOTE | 2020-05-20 16:41 | NUR ---
Mr. Payne is day #22 in the hospital, remains in intensive care unit. He is still on a non-rebreather. He is feeling better. REVIEW OF SYSTEMS: Otherwise unremarkable encouraged to push p.o. nutrition. Review of systems otherwise beside the weakness and shortness of breath he denies any. PHYSICAL EXAMINATION: GENERAL: Currently alert, oriented. VITAL SIGNS: Stable, afebrile. HEENT: He is not icteric. NECK: Supple. CHEST: Clear bilaterally. HEART: S1, S2. No S3, S4, or murmur. ABDOMEN: Soft. Bowel sounds present. No tenderness. EXTREMITIES: No edema. SKIN: No rash. IMPRESSION: Coronavirus disease-19, respiratory failure, debility, slowly getting better. Continue supportive care as ordered. Off antibiotic. Oxygen as needed.
--- NOTE | 2020-05-20 16:42 | NUR ---
progress note INFECTIOUSE DISEASE patient is seen and examined events noted discussed with medical team The patient is still short of breath, but he is using less oxygen. He is on an Airvo with 60% oxygen and 50 L. PHYSICAL EXAMINATION: VITAL SIGNS: Blood pressure is 108/81, saturation is 97%. Heart rate is 95 to 105. HEENT: Shows no facial swelling or erythema. LYMPHATIC: Shows no submandibular, cervical, or supraclavicular adenopathy. CARDIAC: Reveals regular rate and rhythm with normal S1, S2. LUNGS: Auscultation of lungs reveals rhonchorous breath sounds bilaterally. There is no wheezing. ABDOMEN: Soft and nontender. There is no rebound or guarding. EXTREMITIES: Shows no leg edema or calf tenderness. There is no cyanosis or clubbing. SKIN: Shows no rashes. NEUROLOGICAL: Shows no focal abnormalities. LABORATORY DATA: [id number] and electrolytes are within normal limits. Albumin is 2.4. White blood cell count is 7.3 and hemoglobin is 13.1. The platelet count is 213. IMPRESSION: 1. Acute respiratory failure. 2. Viral pneumonia and COVID-19 infection. 3. Gastroesophageal reflux. 4. Anemia. cont as ordered discussed with medical team
[2020-05-20] MEDS: ATORVASTATIN 20 MG TAB PO SCH (21:25)
[2020-05-21] VITALS (24 sets, daily range): BP systolic 88–119; BP diastolic 56–88
[2020-05-21] MEDS: DEXMEDETOMIDINE HCL 200 MCG in SODIUM CHLORIDE 0.9% 50ML 48 ML IV SCH ×3 (05:05→23:52)
[2020-05-21 05:34] LABS: BASOPHILS % 0.6 % (0.0-1.0); EOSINOPHILS # (AUTO) 0.5 (0.0-0.4); EOSINOPHILS % 7.7 % (0.0-6.0); HEMATOCRIT 43.3 % (38.2-49.6); HEMOGLOBIN 13.1 g/dL (14.0-18.0); LYMPHOCYTES # (AUTO) 1.6 (1.0-3.2); LYMPHOCYTES % 23.5 % (18.0-39.1); MEAN CORPUSCULAR HEMOGLOBIN 22.4 pg (28-32); MEAN CORPUSCULAR HGB CONC 30.3 g/dL (31-35); MEAN CORPUSCULAR VOLUME 74.1 fL (81-99); MONOCYTES # (AUTO) 0.8 (0.2-0.8); MONOCYTES % 11.3 % (4.4-11.3); NEUTROPHILS # (AUTO) 3.8 (2.1-6.9); NEUTROPHILS % 56.6 % (38.7-80.0); PLATELET COUNT 188 x10e3/uL (140-360); RED BLOOD COUNT 5.84 x10e6/uL (4.3-5.7); RED CELL DISTRIBUTION WIDTH 20.5 % (11.7-14.4)
[2020-05-21 06:10] LABS: ALANINE AMINOTRANSFERASE 54 IU/L (0-55); ALBUMIN 2.4 g/dL (3.5-5.0); ALBUMIN/GLOBULIN RATIO 0.5 (0.8-2.0); ALKALINE PHOSPHATASE 54 IU/L (40-150); ANION GAP 11.1 mmol/L (8-16); BLOOD UREA NITROGEN 19 mg/dL (7-26); BUN/CREATININE RATIO 25 (6-25); CALCIUM 8.8 mg/dL (8.4-10.2); CARBON DIOXIDE 28 mmol/L (22-29); CHLORIDE 103 mmol/L (98-107); CREATININE, SERUM 0.75 mg/dL (0.72-1.25); EST GLOMERULAR FILTRATION RATE > 60 ML/MIN (60-); GLUCOSE 99 mg/dL (74-118); POTASSIUM 4.1 mmol/L (3.5-5.1); SODIUM 138 mmol/L (136-145)
[2020-05-21] MEDS: FAMOTIDINE 20 MG/2 ML VIAL IV SCH ×2 (08:42→17:33)
[2020-05-21] MEDS: ASCORBIC ACID 500 MG TAB PO SCH ×2 (08:43→20:24)
[2020-05-21] MEDS: GUAIFENESIN 600MG/DEXTROMETHORPHAN 30MG TABSR PO SCH ×2 (08:43→17:33)
[2020-05-21] MEDS: ENOXAPARIN SODIUM INJ 100 MG/ML SYR SC SCH ×2 (08:43→20:24)
[2020-05-21] MEDS: PANTOPRAZOLE 40 MG 10ML VIAL IV SCH (08:43)
[2020-05-21] MEDS: ZINC SULFATE 220 MG CAP PO SCH (08:43)
[2020-05-21] MEDS: DOCUSATE SODIUM 100 MG CAP PO SCH ×2 (08:43→17:33)
[2020-05-21] MEDS: CHOLECALCIFEROL 400 UNIT TAB PO SCH ×2 (08:43→20:24)
--- NOTE | 2020-05-21 16:54 | Progress Note ---
DATE: SUBJECTIVE: The patient is having slightly less dyspnea, although he does desaturate with standing upper movement. He is on an Airvo with 45 L of oxygen and 50% oxygen. PHYSICAL EXAMINATION: VITAL SIGNS: The patient is afebrile. The blood pressure is 109/75 and the pulse is 94. Saturation is 97% on 45 L with 50%. HEENT: No facial swelling or erythema. LYMPHATIC: No submandibular, cervical, or supraclavicular adenopathy. CARDIAC: Regular rate and rhythm with normal S1, S2. LUNGS: Auscultation of lungs reveals crackles at the bases. There is no wheezing. ABDOMEN: Soft, nontender. There is no rebound or guarding. EXTREMITIES: No leg edema or calf tenderness. There is no cyanosis or clubbing. SKIN: No rashes. NEUROLOGICAL: No focal abnormalities. LABORATORY DATA: White blood cell count is 6.6 and hemoglobin is 13.1. The platelet count is 188. The BUN to creatinine ratio is normal. The other electrolytes are within normal limits and the albumin is 2.4. IMPRESSION: 1. Acute respiratory failure. 2. Viral pneumonia and coronavirus disease-19 infection. 3. Gastroesophageal reflux. 4. Anemia. PLAN: 1. Continue to wean L flow and FiO2 on Airvo. 2. Continue Protonix and Pepcid. 3. Continue Lovenox. MD RYNE Martinez/MI[place]EL /[id number]
--- NOTE | 2020-05-21 18:55 | Progress Note ---
DATE: SUBJECTIVE: Mr. Payne remains in intensive care unit, comfortable, short of breath. Discussed with the medical team, the patient who has been here for 23 days. Remains on high-flow oxygen. OBJECTIVE: HEENT: He is not icteric. VITAL SIGNS: He is on 50% of oxygen. NECK: Supple. CHEST: Crackles bilaterally. HEART: S1 and S2. ABDOMEN: Soft. Bowel sounds present. EXTREMITIES: No edema. IMPRESSIONS: Respiratory failure, the patient with viral pneumonia, COVID-19, DVT, pulmonary embolism. Continue with oxygen as needed. Continue with Lovenox, slowly better. No need for antibiotic at the present time. Continue with supportive care. Answered all questions. MD NELA Curiel/[place] /[id number]
[2020-05-21] MEDS: ATORVASTATIN 20 MG TAB PO SCH (20:24)
[2020-05-22] VITALS (35 sets, daily range): BP systolic 85–116; BP diastolic 55–85
[2020-05-22 05:00] LABS: BASOPHILS # (AUTO) 0.1 (0.0-0.1); BASOPHILS % 0.9 % (0.0-1.0); EOSINOPHILS # (AUTO) 0.4 (0.0-0.4); EOSINOPHILS % 7.8 % (0.0-6.0); HEMATOCRIT 42.9 % (38.2-49.6); LYMPHOCYTES # (AUTO) 1.7 (1.0-3.2); MEAN CORPUSCULAR HEMOGLOBIN 22.4 pg (28-32); MEAN CORPUSCULAR HGB CONC 30.3 g/dL (31-35); MONOCYTES # (AUTO) 0.7 (0.2-0.8); MONOCYTES % 12.2 % (4.4-11.3); NEUTROPHILS # (AUTO) 2.8 (2.1-6.9); NEUTROPHILS % 48.7 % (38.7-80.0); PLATELET COUNT 199 x10e3/uL (140-360); RED CELL DISTRIBUTION WIDTH 20.8 % (11.7-14.4)
[2020-05-22 05:28] LABS: ALANINE AMINOTRANSFERASE 56 IU/L (0-55); ALBUMIN 2.5 g/dL (3.5-5.0); ALBUMIN/GLOBULIN RATIO 0.5 (0.8-2.0); ALKALINE PHOSPHATASE 56 IU/L (40-150); ANION GAP 12.1 mmol/L (8-16); BLOOD UREA NITROGEN 19 mg/dL (7-26); BUN/CREATININE RATIO 25 (6-25); CALCIUM 8.8 mg/dL (8.4-10.2); CARBON DIOXIDE 27 mmol/L (22-29); CHLORIDE 102 mmol/L (98-107); CREATININE, SERUM 0.77 mg/dL (0.72-1.25); EST GLOMERULAR FILTRATION RATE > 60 ML/MIN (60-); GLUCOSE 98 mg/dL (74-118); POTASSIUM 4.1 mmol/L (3.5-5.1); SODIUM 137 mmol/L (136-145)
[2020-05-22] MEDS: DEXMEDETOMIDINE HCL 200 MCG in SODIUM CHLORIDE 0.9% 50ML 48 ML IV SCH ×2 (05:40→12:49)
[2020-05-22] MEDS: FAMOTIDINE 20 MG/2 ML VIAL IV SCH ×2 (09:16→17:40)
[2020-05-22] MEDS: DOCUSATE SODIUM 100 MG CAP PO SCH ×2 (09:17→17:40)
[2020-05-22] MEDS: ASCORBIC ACID 500 MG TAB PO SCH ×2 (09:17→20:16)
[2020-05-22] MEDS: ZINC SULFATE 220 MG CAP PO SCH (09:17)
[2020-05-22] MEDS: CHOLECALCIFEROL 400 UNIT TAB PO SCH ×2 (09:17→20:16)
[2020-05-22] MEDS: GUAIFENESIN 600MG/DEXTROMETHORPHAN 30MG TABSR PO SCH ×2 (09:17→17:40)
[2020-05-22] MEDS: ENOXAPARIN SODIUM INJ 100 MG/ML SYR SC SCH (09:17)
[2020-05-22] MEDS: PANTOPRAZOLE 40 MG 10ML VIAL IV SCH (09:17)
[2020-05-22] MEDS ORDERED: LACTATED RINGER'S 500 ML INJ ONE (10:00)
--- NOTE | 2020-05-22 11:53 | Progress Note ---
DATE: SUBJECTIVE: The patient is having less cough and less dyspnea with exertion. His Airvo was decreased to 35 L and 50%. PHYSICAL EXAMINATION: VITAL SIGNS: Blood pressure is 88/62 and the pulse is 72. Saturation is now 98%. HEENT: Shows no facial swelling or erythema. LYMPHATIC: Shows no submandibular, cervical, or supraclavicular adenopathy. CARDIAC: Reveals regular rate and rhythm with normal S1 and S2. LUNGS: Auscultation of lungs shows decreased breath sounds at the bases. There is no wheezing. ABDOMEN: Soft and nontender. There is no rebound or guarding. There is no leg edema or calf tenderness. LABORATORY DATA: White blood cell count is 5.6 and hemoglobin is 13. The platelet count is 199. The BUN to creatinine ratio is normal. The other electrolytes are within normal limits and the albumin is 2.5. IMPRESSION: 1. Acute respiratory failure. 2. Viral pneumonia and COVID-19 infection. 3. Gastroesophageal reflux. 4. Anemia. PLAN: 1. Continue to wean L flow and FiO2. 2. Repeat chest x-ray. 3. Continue Protonix and Pepcid. 4. Continue Lovenox. 5. Consider judicious use of IV fluids. Pepe Kirkpatrick MD [facility]/MOD[facility] /[id number]
--- NOTE | 2020-05-22 12:06 | Diagnostic Imaging Report ---
EXAMINATION: CHEST SINGLE (PORTABLE) INDICATION: Viral pneumonia. COMPARISON: Multiple prior chest x-rays including most recent on 05/18/2020. Chest CT on 05/15/2020. FINDINGS: TUBES and LINES: None. LUNGS: Low lung volumes. No significant interval change in multifocal patchy interstitial and airspace opacities throughout both lungs. PLEURA: No pleural effusion or pneumothorax. HEART AND MEDIASTINUM: The cardiomediastinal silhouette is unremarkable. BONES AND SOFT TISSUES: No acute osseous lesion. Soft tissues are unremarkable. UPPER ABDOMEN: No free air under the diaphragm. IMPRESSION: No significant interval change in patchy interstitial and airspace opacities throughout both lungs compatible with known history of multifocal viral pneumonia. Signed by: Evgeny Lloyd MD on 05/22/2020 12:03 PM
--- NOTE | 2020-05-22 13:55 | NUR ---
INFECTIOUS DISEASE PROGRESS NOTE DR ARMSTRONG SUBJECTIVE: Mr. Payne remains in intensive care unit, comfortable, short of breath. Discussed with the medical team, the patient who has been here for 23 days. Remains on high-flow oxygen. PHYSICAL EXAM OBJECTIVE: HEENT: He is not icteric. VITAL SIGNS: He is on 50% of oxygen. NECK: Supple. CHEST: Crackles bilaterally. HEART: S1 and S2. ABDOMEN: Soft. Bowel sounds present. EXTREMITIES: No edema. LABS: REVIEWED RADIOLOGY: REVIEWED IMPRESSIONS: Respiratory failure, viral pneumonia, COVID-19 DVT, pulmonary embolism. PLAN: Continue with oxygen as needed. Continue with Lovenox, slowly better. No need for antibiotic at the present time. Continue with supportive care. Answered all questions. PT SEEN AND EVALUATED BY DR ARMSTRONG
[2020-05-22] MEDS: ATORVASTATIN 20 MG TAB PO SCH (20:16)
[2020-05-23] VITALS (25 sets, daily range): BP systolic 84–137; BP diastolic 59–94
[2020-05-23 05:02] LABS: BASOPHILS % 0.7 % (0.0-1.0); EOSINOPHILS # (AUTO) 0.4 (0.0-0.4); EOSINOPHILS % 6.3 % (0.0-6.0); HEMATOCRIT 44.6 % (38.2-49.6); HEMOGLOBIN 13.8 g/dL (14.0-18.0); LYMPHOCYTES # (AUTO) 1.6 (1.0-3.2); LYMPHOCYTES % 28.2 % (18.0-39.1); MEAN CORPUSCULAR HEMOGLOBIN 23.2 pg (28-32); MEAN CORPUSCULAR HGB CONC 30.9 g/dL (31-35); MEAN CORPUSCULAR VOLUME 74.8 fL (81-99); MONOCYTES # (AUTO) 0.7 (0.2-0.8); MONOCYTES % 12.7 % (4.4-11.3); NEUTROPHILS # (AUTO) 2.9 (2.1-6.9); NEUTROPHILS % 51.7 % (38.7-80.0); PLATELET COUNT 192 x10e3/uL (140-360); RED BLOOD COUNT 5.96 x10e6/uL (4.3-5.7)
[2020-05-23 05:54] LABS: ALANINE AMINOTRANSFERASE 58 IU/L (0-55); ALBUMIN 2.6 g/dL (3.5-5.0); ALBUMIN/GLOBULIN RATIO 0.5 (0.8-2.0); ALKALINE PHOSPHATASE 57 IU/L (40-150); ANION GAP 12.5 mmol/L (8-16); BLOOD UREA NITROGEN 17 mg/dL (7-26); BUN/CREATININE RATIO 21 (6-25); CALCIUM 8.9 mg/dL (8.4-10.2); CARBON DIOXIDE 27 mmol/L (22-29); CHLORIDE 102 mmol/L (98-107); CREATININE, SERUM 0.82 mg/dL (0.72-1.25); EST GLOMERULAR FILTRATION RATE > 60 ML/MIN (60-); GLUCOSE 98 mg/dL (74-118); POTASSIUM 4.5 mmol/L (3.5-5.1); SODIUM 137 mmol/L (136-145)
[2020-05-23] MEDS: ASCORBIC ACID 500 MG TAB PO SCH ×2 (08:54→20:10)
[2020-05-23] MEDS: DOCUSATE SODIUM 100 MG CAP PO SCH ×3 (08:54→17:00)
[2020-05-23] MEDS: GUAIFENESIN 600MG/DEXTROMETHORPHAN 30MG TABSR PO SCH ×2 (08:54→16:52)
[2020-05-23] MEDS: CHOLECALCIFEROL 400 UNIT TAB PO SCH ×2 (08:55→20:10)
[2020-05-23] MEDS: ZINC SULFATE 220 MG CAP PO SCH (08:55)
[2020-05-23] MEDS: PANTOPRAZOLE 40 MG 10ML VIAL IV SCH (08:57)
[2020-05-23] MEDS: FAMOTIDINE 20 MG/2 ML VIAL IV SCH ×2 (08:57→16:52)
--- NOTE | 2020-05-23 10:08 | Progress Note ---
DATE: SUBJECTIVE: The patient still has some intermittent coughing. He is down to 8 L high-flow. PHYSICAL EXAMINATION: VITAL SIGNS: The blood pressure is 107/80, saturation is 97%, and the pulse is 111. HEENT: Shows no facial swelling or erythema. CARDIAC: Reveals regular rate and rhythm with normal S1 and S2. LUNGS: Auscultation of lungs reveals rhonchorous breath sounds bilaterally. There is no wheezing. ABDOMEN: Soft and nontender. There is no rebound or guarding. EXTREMITIES: Shows no leg edema or calf tenderness. There is no cyanosis or clubbing. SKIN: Shows no rashes. NEUROLOGICAL: Shows no focal abnormalities. LABORATORY DATA: BUN to creatinine ratio is normal. Electrolytes were normal. The albumin is 2.6. White blood cell count is 5.6 and hemoglobin is 13.8. The platelet count is 192. IMPRESSION: 1. Acute respiratory failure. 2. Viral pneumonia and COVID-19 infection. 3. Anemia. PLAN: 1. Continue to wean oxygen. 2. Continue Protonix and Pepcid. 3. Tussionex p.r.n. for cough. 4. Continue Lovenox. 5. Physical therapy. Pepe Kirkpatrick MD [facility]/[place] /[id number]
--- NOTE | 2020-05-23 16:08 | NUR ---
INFECTIOUS DISEASE PROGRESS NOTE DR ARMSTRONG seen and examined chart reviewed medication discussed with medical team labs reviewed SUBJECTIVE: Mr. Payne remains in intensive care unit, comfortable, short of breath. Discussed with the medical team, the patient who has been here for 23 days. doing better day 25 PHYSICAL EXAM OBJECTIVE: HEENT: He is not icteric. VITAL SIGNS: He is on NR HEENT NORMOCEPHALIC not pale not icteric . NECK: Supple. CHEST: Crackles bilaterally. HEART: S1 and S2. ABDOMEN: Soft. Bowel sounds present. EXTREMITIES: No edema. LABS: REVIEWED RADIOLOGY: REVIEWED IMPRESSIONS: Respiratory failure, viral pneumonia, COVID-19 DVT, pulmonary embolism. PLAN: Continue with oxygen as needed. Continue with Lovenox, slowly better. No need for antibiotic at the present time. Continue with supportive care. Answered all questions.
[2020-05-23] MEDS: HYDROCODONE/CHLORPHENIRAMINE 5 ML LIQCR PO PRN (17:04)
[2020-05-23] MEDS ORDERED: DEXMEDETOMIDINE HCL 200 MCG in SODIUM CHLORIDE 0.9% 50ML 48 ML IV PRN (18:45)
[2020-05-23] MEDS: ENOXAPARIN INJ 80 MG/0.8 ML SYR SC SCH (20:10)
[2020-05-23] MEDS: ATORVASTATIN 20 MG TAB PO SCH (20:10)
[2020-05-24] VITALS (15 sets, daily range): BP systolic 121–155; BP diastolic 85–101
[2020-05-24 05:45] LABS: BASOPHILS % 0.6 % (0.0-1.0); EOSINOPHILS # (AUTO) 0.3 (0.0-0.4); EOSINOPHILS % 4.1 % (0.0-6.0); HEMATOCRIT 46.8 % (38.2-49.6); HEMOGLOBIN 14.5 g/dL (14.0-18.0); LYMPHOCYTES # (AUTO) 1.8 (1.0-3.2); LYMPHOCYTES % 27.7 % (18.0-39.1); MEAN CORPUSCULAR HEMOGLOBIN 22.9 pg (28-32); MEAN CORPUSCULAR VOLUME 73.8 fL (81-99); MONOCYTES # (AUTO) 0.8 (0.2-0.8); MONOCYTES % 12.2 % (4.4-11.3); NEUTROPHILS # (AUTO) 3.6 (2.1-6.9); NEUTROPHILS % 55.1 % (38.7-80.0); PLATELET COUNT 187 x10e3/uL (140-360); RED BLOOD COUNT 6.34 x10e6/uL (4.3-5.7); RED CELL DISTRIBUTION WIDTH 21.6 % (11.7-14.4)
[2020-05-24 06:17] LABS: ALANINE AMINOTRANSFERASE 55 IU/L (0-55); ALBUMIN 2.8 g/dL (3.5-5.0); ALBUMIN/GLOBULIN RATIO 0.6 (0.8-2.0); ALKALINE PHOSPHATASE 66 IU/L (40-150); ANION GAP 12.2 mmol/L (8-16); BLOOD UREA NITROGEN 15 mg/dL (7-26); BUN/CREATININE RATIO 18 (6-25); CALCIUM 9.2 mg/dL (8.4-10.2); CARBON DIOXIDE 28 mmol/L (22-29); CHLORIDE 101 mmol/L (98-107); CREATININE, SERUM 0.85 mg/dL (0.72-1.25); EST GLOMERULAR FILTRATION RATE > 60 ML/MIN (60-); GLUCOSE 92 mg/dL (74-118); POTASSIUM 4.2 mmol/L (3.5-5.1); SODIUM 137 mmol/L (136-145)
[2020-05-24] MEDS: GUAIFENESIN 600MG/DEXTROMETHORPHAN 30MG TABSR PO SCH ×2 (09:08→16:46)
[2020-05-24] MEDS: ENOXAPARIN INJ 80 MG/0.8 ML SYR SC SCH ×2 (09:08→21:04)
[2020-05-24] MEDS: DOCUSATE SODIUM 100 MG CAP PO SCH ×2 (09:08→16:46)
[2020-05-24] MEDS: FAMOTIDINE 20 MG/2 ML VIAL IV SCH ×2 (09:08→16:46)
[2020-05-24] MEDS: CHOLECALCIFEROL 400 UNIT TAB PO SCH ×2 (09:08→21:04)
[2020-05-24] MEDS: ZINC SULFATE 220 MG CAP PO SCH (09:08)
[2020-05-24] MEDS: ASCORBIC ACID 500 MG TAB PO SCH ×2 (09:08→21:04)
[2020-05-24] MEDS: PANTOPRAZOLE 40 MG 10ML VIAL IV SCH (09:08)
--- NOTE | 2020-05-24 12:40 | NUR ---
patient arrived to room 184. after getting in bed, o2 was 83% once getting from chair to bed. bumped up to 10L high flow- 95% at this time. will continue to wean down patient back to 5L as tolerated.
--- NOTE | 2020-05-24 18:09 | Progress Note ---
DATE: SUBJECTIVE: Mr. Payne is feeling better. He is out of ICU. PHYSICAL EXAMINATION: GENERAL: He is currently alert, oriented. VITAL SIGNS: Stable, afebrile. HEENT: He is not icteric. NECK: Supple. CHEST: Crackles bilateral. HEART: S1-S2. ABDOMEN: Soft. Bowel sounds present. No tenderness. EXTREMITIES: No edema. SKIN: No rash. IMPRESSION AND PLAN: Coronavirus disease-19, respiratory failure, deep venous thrombosis. He is slowly getting better. Continue with Lovenox 1 mg/kg subcu q.12h. On vitamin C and vitamin D supplement. Oxygen as needed. Continue as ordered. We will follow. MD NELA Curiel/[place] /[id number]
[2020-05-24] MEDS: ATORVASTATIN 20 MG TAB PO SCH (21:04)
--- NOTE | 2020-05-24 21:30 | NUR ---
RUDOLPH WEST NP MADE AWARE THAT PATIENT HAS EPISODES OF TACHYCARDIA ON EXERTION. NO NEW ORDERS.
[2020-05-24] MEDS: HYDROCODONE/CHLORPHENIRAMINE 5 ML LIQCR PO PRN (22:03)
[2020-05-25] VITALS (8 sets, daily range): BP systolic 106–123; BP diastolic 79–88
[2020-05-25 06:26] LABS: BASOPHILS # (AUTO) 0.1 (0.0-0.1); BASOPHILS % 0.6 % (0.0-1.0); EOSINOPHILS # (AUTO) 0.4 (0.0-0.4); EOSINOPHILS % 4.2 % (0.0-6.0); HEMATOCRIT 49.3 % (38.2-49.6); LYMPHOCYTES # (AUTO) 2.5 (1.0-3.2); LYMPHOCYTES % 29.5 % (18.0-39.1); MEAN CORPUSCULAR HEMOGLOBIN 22.8 pg (28-32); MEAN CORPUSCULAR HGB CONC 30.4 g/dL (31-35); MONOCYTES # (AUTO) 1.4 (0.2-0.8); NEUTROPHILS # (AUTO) 4.2 (2.1-6.9); NEUTROPHILS % 49.5 % (38.7-80.0); PLATELET COUNT 224 x10e3/uL (140-360); RED BLOOD COUNT 6.57 x10e6/uL (4.3-5.7); RED CELL DISTRIBUTION WIDTH 22.5 % (11.7-14.4)
[2020-05-25 06:48] LABS: ANION GAP 12.4 mmol/L (8-16); BLOOD UREA NITROGEN 15 mg/dL (7-26); BUN/CREATININE RATIO 19 (6-25); CALCIUM 9.3 mg/dL (8.4-10.2); CARBON DIOXIDE 28 mmol/L (22-29); CHLORIDE 103 mmol/L (98-107); CREATININE, SERUM 0.81 mg/dL (0.72-1.25); EST GLOMERULAR FILTRATION RATE > 60 ML/MIN (60-); GLUCOSE 101 mg/dL (74-118); MAGNESIUM 1.9 MG/DL (1.3-2.1); PHOSPHORUS 4.3 MG/DL (2.3-4.7); POTASSIUM 4.4 mmol/L (3.5-5.1); SODIUM 139 mmol/L (136-145)
[2020-05-25] MEDS: ASCORBIC ACID 500 MG TAB PO SCH ×2 (08:53→20:04)
[2020-05-25] MEDS: GUAIFENESIN 600MG/DEXTROMETHORPHAN 30MG TABSR PO SCH ×2 (08:53→15:59)
[2020-05-25] MEDS: PANTOPRAZOLE 40 MG 10ML VIAL IV SCH (08:53)
[2020-05-25] MEDS: FAMOTIDINE 20 MG/2 ML VIAL IV SCH ×2 (08:53→15:59)
[2020-05-25] MEDS: DOCUSATE SODIUM 100 MG CAP PO SCH ×3 (08:53→15:59)
[2020-05-25] MEDS: CHOLECALCIFEROL 400 UNIT TAB PO SCH ×2 (08:54→20:04)
[2020-05-25] MEDS: ENOXAPARIN INJ 80 MG/0.8 ML SYR SC SCH ×2 (08:54→20:04)
[2020-05-25] MEDS: ZINC SULFATE 220 MG CAP PO SCH (08:54)
[2020-05-25] MEDS: BENZONATATE 100 MG CAP PO PRN ×2 (08:57→15:59)
--- NOTE | 2020-05-25 13:56 | NUR ---
Nutrition Screen Note RD Recommendation for Physician: -Continue current diet regimen and supplement Plan of Care: RD following, monitoring for tolerance and adequacy Nutrition reason for involvement: follow up Primary Diagnose(s): acute respiratory disease due to COVID-19 virus PMH: Hyperlipidemia and dislocated elbow Ht: 71 in Wt:215 lb BMI: 30 kg/m2 IBW:[address] Assessment: 05/25: Follow up. Pt eating 50-100% of meals and drinking Ensure TID. Labs reviewed, WNL. Meds reviewed. No GI distress noted. Skin intact. Chart reviewed. Will continue to monitor. 05/20: Follow up. Chart reviewed. It is recorded that pt is consuming 75-100% of meals. Will continue to monitor. 05/13: Follow up. Chart reviewed. RD called pts nurse over the phone. RN stated that pt consumed all of his breakfast this morning and is drinking Ensure. Will continue to monitor. 05/06: Follow up. Chart reviewed. RD called pt's nurse over the phone. RN stated pt is consuming 75% of his meals and is drinking Ensure nutrition supplements. Will continue to monitor. (04/29/20) Chart reviewed. Labs and meds reviewed. Pt is a 49 year old male admitted with acute respiratory disease due to COVID-19. Pt was transferred to the [facility] ICU and is on high-flow oxygen. Unable to speak to pt due to isolation restrictions. Pt is currently on a cardiac diet with Ensure Enlive ordered BID. It is recorded that pt consumed 75% of lunch today and 100% of dinner yesterday. There are no previous weights in chart. Will continue to monitor. Current Diet: cardiac diet with Ensure Enlive TID Malnutrition Evaluation (05/25/20) Unable to evaluate per current isolation protocol. Will re-evaluate at follow-up as appropriate. Diet Education Needs Assessment: RD is available for diet education as needed Nutrition Care Level: low Signed: Dalia Marques RD, LD, [facility]
--- NOTE | 2020-05-25 16:14 | Progress Note ---
DATE: SUBJECTIVE: Mr. Payne is feeling better. PHYSICAL EXAMINATION: GENERAL: He is currently alert and oriented. VITAL SIGNS: Stable, currently afebrile. HEENT: He is not icteric. NECK: Supple. CHEST: Clear. HEART: S1 and S2. No murmur. ABDOMEN: Soft. IMPRESSION: COVID-19. The patient is doing well. Still short of breath. Continue with PT/OT. Continue supportive care. Discussed with the patient. Continue to wean oxygen. Once his oxygenation improved, the patient will be discharged home. MD NELA Curiel/MODL /[id number]
[2020-05-25] MEDS ORDERED: LACTATED RINGER'S 500 ML INJ ONE (17:30)
--- NOTE | 2020-05-25 19:30 | NUR ---
WALKING ROUNDS PERFORMED, RECEIVED PT LAYING SEMI FOWLERS IN BED, AAOX3, SOB WITH EXERTION, O2 BY NC AT 4L, PT HAS NRB AT 15L AT BEDSIDE, PT REPORTS WHEN HAS HAS A COUGHING FIT HE PUTS THE MASK ON. LEFT PT LAYING SEMI FOWLERS IN BED, BED IN LOW LOCKED POSITION, SIDE RAILS UPX2, CALL LIGHT AND PHONE WITHIN REACH.
--- NOTE | 2020-05-25 19:35 | Progress Note ---
DATE: SUBJECTIVE: The patient is down to 6 L nasal cannula. He still has coughing. PHYSICAL EXAMINATION: VITAL SIGNS: Blood pressure is 106/60 and the heart rate is 110 to 120. He is saturating 95% on 6 L. HEENT: Shows no facial swelling. LYMPHATIC: Shows no submandibular, cervical, or supraclavicular adenopathy. CARDIAC: Reveals regular rate and rhythm with normal S1 and S2. LUNGS: Auscultation of reveals crackles at the bases. There is no wheezing. ABDOMEN: Soft and nontender. There is no rebound or guarding. EXTREMITIES: Shows no leg edema or calf tenderness. There is no cyanosis or clubbing. SKIN: Shows no rashes. LABORATORY DATA: White blood cell count is 8.5. Hemoglobin and the platelet count is 224. The BUN to creatinine ratio is 15 to 0.81. Other electrolytes are within normal limits. The albumin is 2.8. IMPRESSION: 1. Acute respiratory failure. 2. Viral pneumonia and COVID-19 infection. 3. Anemia. PLAN: 1. Continue to wean oxygen. 2. Physical therapy. 3. Judicious use of IV fluids. 4. Tussionex p.r.n. for cough. 5. Protonix and Pepcid. 6. anticoagulation. Pepe Kirkpatrick MD [facility]/MODL /[id number]
[2020-05-25] MEDS: HYDROCODONE/CHLORPHENIRAMINE 5 ML LIQCR PO PRN (20:04)
[2020-05-25] MEDS: ATORVASTATIN 20 MG TAB PO SCH (20:04)
--- NOTE | 2020-05-25 20:25 | Progress Note ---
DATE: CONSULTING PHYSICIAN: Dr. Pepe Kirkpatrick with Pulmonology Critical Care Medicine and Dr. Vicky Evans with Infectious Disease. SUBJECTIVE: Eating well. No new issues. He does still have a cough. Tachycardia noted with exertion. PHYSICAL EXAMINATION: VITAL SIGNS: Temperature 97.5, heart rate 114, blood pressure 123/84, respirations 20, oxygen saturation 100%. GENERAL: Showed no acute distress. LUNGS: Unlabored respirations. Currently on oxygen at 6 L/minute. Humidified high-flow via nasal cannula. HEENT: EOMI. NECK: Supple. CARDIOVASCULAR: Regular rate and rhythm. Sinus tachycardia with a heart rate of 114. No murmur. ABDOMEN: Soft, nontender. EXTREMITIES: No edema. No signs of DVT. NEUROLOGICAL: GCS 15. Nonfocal. LABORATORY DATA: WBC is 8.52, hemoglobin 15, hematocrit 49.3, and platelets 224. Sodium 139, potassium 4.4, chloride 103, CO2 of 28, BUN 15, creatinine 0.81, estimated GFR greater than 60, glucose 101, calcium 9.3, phosphorus 4.3, magnesium 1.9. IMAGING STUDIES: No new imaging studies. ASSESSMENT AND PLAN: 1. Coronavirus disease 2019 pneumonia with acute respiratory distress syndrome. Continue Lovenox, zinc sulfate, vitamin C, vitamin D. wean his oxygen as tolerated. ID and Pulmonology following. Tachycardia noted with exertion. Monitor telemetry. 2. Transaminitis. AST 41, otherwise LFTs within normal limits. 3. Prophylaxis. Lovenox and Pepcid. Billing code 14452. Time spent 35 minutes. Dictated by Lang North NP MD ANDRÉS KelleyP/MODL /[id number]
[2020-05-26] VITALS (8 sets, daily range): BP systolic 103–125; BP diastolic 75–83
[2020-05-26] MEDS: FAMOTIDINE 20 MG/2 ML VIAL IV SCH ×2 (08:04→16:04)
[2020-05-26] MEDS: GUAIFENESIN 600MG/DEXTROMETHORPHAN 30MG TABSR PO SCH ×2 (08:05→16:04)
[2020-05-26] MEDS: ENOXAPARIN INJ 80 MG/0.8 ML SYR SC SCH ×2 (08:05→21:44)
[2020-05-26] MEDS: HYDROCODONE/CHLORPHENIRAMINE 5 ML LIQCR PO PRN ×2 (08:05→16:05)
[2020-05-26] MEDS: CHOLECALCIFEROL 400 UNIT TAB PO SCH ×2 (08:05→21:44)
[2020-05-26] MEDS: ZINC SULFATE 220 MG CAP PO SCH (08:05)
[2020-05-26] MEDS: ASCORBIC ACID 500 MG TAB PO SCH ×2 (08:05→21:44)
[2020-05-26] MEDS: DOCUSATE SODIUM 100 MG CAP PO SCH ×2 (08:05→16:04)
[2020-05-26] MEDS: PANTOPRAZOLE 40 MG 10ML VIAL IV SCH (08:05)
--- NOTE | 2020-05-26 15:46 | NUR ---
DATE: 05/26/2020 CONSULTING PHYSICIANS: Dr. Pepe Kirkpatrick with Pulmonology Critical Care Medicine and Dr. Vicky Evans with Infectious Disease. SUBJECTIVE: Eating well. No new issues. He does still have coughing fits, during which time he desaturates to 80's per HARDIK Ferrell. Less palpitations, tachycardia a bit better today at 103. "I need PT". PHYSICAL EXAMINATION: VITAL SIGNS: Temperature 98.2, heart rate 103, blood pressure 103/79, respirations 16, oxygen saturation 98%. GENERAL: Showed no acute distress. LUNGS: Unlabored respirations. Currently on oxygen at 4 L/minute via humidified high-flow via nasal cannula. HEENT: EOMI. NECK: Supple. CARDIOVASCULAR: Regular rate and rhythm. Sinus tachycardia with a heart rate of 114. No murmur. ABDOMEN: Soft, nontender. EXTREMITIES: No edema. No signs of DVT. NEUROLOGICAL: GCS 15. Nonfocal. LABORATORY DATA: Reviewed. IMAGING STUDIES: No new imaging studies. ASSESSMENT AND PLAN: 1. Coronavirus disease 2019 pneumonia with acute respiratory distress syndrome. Continue Lovenox, zinc sulfate, vitamin C, vitamin D. wean his oxygen as tolerated. ID and Pulmonology following. Tachycardia noted with exertion. Monitor telemetry. Stop use of prn NRBM, which I believe he uses as a crutch. 2. Transaminitis. AST 41 8/5, otherwise LFTs within normal limits. 3. Prophylaxis. Lovenox and Pepcid. Billing code 40826. Time spent 35 minutes.
--- NOTE | 2020-05-26 16:59 | Progress Note ---
DATE: SUBJECTIVE: Mr. Payne is doing well. There are no new complaints. REVIEW OF SYSTEMS: He is still short of breath and very weak. PHYSICAL EXAMINATION: GENERAL: He is currently alert, oriented. VITAL SIGNS: Stable, afebrile. HEENT: He is not icteric. NECK: Supple. CHEST: Clear bilateral. HEART: S1 and S2. ABDOMEN: Soft. Bowel sounds present. EXTREMITIES: No edema. SKIN: No rash. IMPRESSION: Coronavirus disease-19 respiratory failure, very slow progress, debility. Discussed with the patient to encourage p.o. intake, to take the milkshake. Continue with the anticoagulation as ordered. We will follow. MD NELA Curiel/[place] /[id number]
--- NOTE | 2020-05-26 17:30 | NUR ---
Talked to patient about weaning him of NRBM in order to get him ready for discharge. Explained to patient that even though there is possibility of him going home with oxygen the NRBM would not be part of it. Pt is agreeable to start to ween himself of mask. Pt is on 4L/NC but has been using NRBM during coughing spells.
--- NOTE | 2020-05-26 19:30 | NUR ---
WALKING ROUNDS PERFORMED, RECEIVED PT LAYING SEMI FOWLERS IN BED, AAOX3, SOB WITH EXERTION, O2 BY NC AT 4L. PT USING INCENTIVE SPIROMETER. LEFT PT LAYING SEMI FOWLERS IN BED, BED IN LOW LOCKED POSITION, SIDE RAILS UPX2, CALL LIGHT AND PHONE WITHIN REACH.
[2020-05-26] MEDS: ATORVASTATIN 20 MG TAB PO SCH (21:44)
[2020-05-27] VITALS (9 sets, daily range): BP systolic 106–126; BP diastolic 72–89
[2020-05-27] MEDS: HYDROCODONE/CHLORPHENIRAMINE 5 ML LIQCR PO PRN ×2 (00:20→23:07)
[2020-05-27 06:21] LABS: BASOPHILS # (AUTO) 0.1 (0.0-0.1); BASOPHILS % 0.6 % (0.0-1.0); EOSINOPHILS # (AUTO) 0.3 (0.0-0.4); EOSINOPHILS % 3.6 % (0.0-6.0); HEMATOCRIT 44.6 % (38.2-49.6); HEMOGLOBIN 13.5 g/dL (14.0-18.0); LYMPHOCYTES # (AUTO) 2.4 (1.0-3.2); LYMPHOCYTES % 28.4 % (18.0-39.1); MEAN CORPUSCULAR HEMOGLOBIN 23.1 pg (28-32); MEAN CORPUSCULAR HGB CONC 30.3 g/dL (31-35); MEAN CORPUSCULAR VOLUME 76.2 fL (81-99); MONOCYTES # (AUTO) 1.1 (0.2-0.8); MONOCYTES % 13.1 % (4.4-11.3); NEUTROPHILS # (AUTO) 4.5 (2.1-6.9); NEUTROPHILS % 53.9 % (38.7-80.0); PLATELET COUNT 227 x10e3/uL (140-360); RED BLOOD COUNT 5.85 x10e6/uL (4.3-5.7); RED CELL DISTRIBUTION WIDTH 22.3 % (11.7-14.4)
[2020-05-27 06:31] LABS: ANION GAP 10.8 mmol/L (8-16); BLOOD UREA NITROGEN 17 mg/dL (7-26); BUN/CREATININE RATIO 20 (6-25); CARBON DIOXIDE 31 mmol/L (22-29); CHLORIDE 99 mmol/L (98-107); CREATININE, SERUM 0.83 mg/dL (0.72-1.25); EST GLOMERULAR FILTRATION RATE > 60 ML/MIN (60-); GLUCOSE 112 mg/dL (74-118); POTASSIUM 4.8 mmol/L (3.5-5.1); SODIUM 136 mmol/L (136-145)
[2020-05-27] MEDS: DOCUSATE SODIUM 100 MG CAP PO SCH ×2 (08:45→16:17)
[2020-05-27] MEDS: FAMOTIDINE 20 MG/2 ML VIAL IV SCH ×2 (08:45→16:17)
[2020-05-27] MEDS: PANTOPRAZOLE 40 MG 10ML VIAL IV SCH (08:45)
[2020-05-27] MEDS: GUAIFENESIN 600MG/DEXTROMETHORPHAN 30MG TABSR PO SCH ×2 (08:45→16:17)
[2020-05-27] MEDS: CHOLECALCIFEROL 400 UNIT TAB PO SCH ×2 (08:46→20:45)
[2020-05-27] MEDS: ASCORBIC ACID 500 MG TAB PO SCH ×2 (08:46→20:45)
[2020-05-27] MEDS: ZINC SULFATE 220 MG CAP PO SCH (08:46)
[2020-05-27] MEDS: ENOXAPARIN INJ 80 MG/0.8 ML SYR SC SCH ×2 (08:46→20:45)
--- NOTE | 2020-05-27 13:29 | Progress Note ---
DATE: SUBJECTIVE: The patient is down to 4 L. He still has some coughing. He is waiting for physical therapy. PHYSICAL EXAMINATION: VITAL SIGNS: Blood pressure is 106/72 and saturation is 96% on 4 L. HEENT: Shows no facial swelling or erythema. CARDIAC: Reveals regular rate and rhythm with normal S1 and S2. LUNGS: Auscultation of lungs reveals crackles at the bases. There is no wheezing. ABDOMEN: Soft and nontender. There is no rebound or guarding. EXTREMITIES: Shows no leg edema or calf tenderness. There is no cyanosis or clubbing. SKIN: Shows no rashes. NEUROLOGICAL: Shows no focal abnormalities. LABORATORY DATA: The white blood cell count is 8.3 and the hemoglobin is 13.5. The platelet count is 227. BUN to creatinine ratio is normal. The other electrolytes are within normal limits. RADIOGRAPHIC DATA: Chest x-ray shows bilateral infiltrates. IMPRESSION: 1. Acute respiratory failure. 2. Viral pneumonia and COVID-19 infection. 3. Anemia. PLAN: 1. Intensive physical therapy. 2. Continue to wean oxygen. 3. Nutritional supplementation. 4. Cough suppressants. 5. Control GE reflux. 6. Continue Lovenox. Pepe Kirkpatrick MD [facility] /[id number]
--- NOTE | 2020-05-27 16:07 | NUR ---
Spoke with Ashu, PT regarding eval. States with minimal exertion, pt would start coughing and desat into the 60s. Had to put pt on NRB to get sats back up to 90s. Ashu states there's no way pt would be able to tolerate inpatient rehab at this time. PT will work with pt again tomorrow.
--- NOTE | 2020-05-27 19:26 | Progress Note ---
DATE: SUBJECTIVE: Mr. Payne is feeling better. Oxygenation . PHYSICAL EXAMINATION: GENERAL: He is currently alert, oriented. VITAL SIGNS: Stable, afebrile. HEENT: NECK: Supple. CHEST: Clear. HEART: S1, S2. No murmurs. ABDOMEN: Soft. IMPRESSION: Acute respiratory failure, looking for discharge planning with home oxygen PT, OT, can go home with albuterol inhaler, oxygen, Eliquis 2.5 mg p.o. b.i.d. for 2 months. MD NELA Curiel/[place] /[id number]
--- NOTE | 2020-05-27 19:32 | NUR ---
Resumed care of patient. Patient awake and resting in bed, respirations even and unlabored on 5L NC, no s/s of distress at this time. Bed locked and in lowest position, side rails upx3, alarm on, call light placed within reach. All safety measures in place.
[2020-05-27] MEDS: ATORVASTATIN 20 MG TAB PO SCH (20:45)
[2020-05-27] MEDS: ACETAMINOPHEN 325 MG TAB PO PRN (23:08)
[2020-05-28] VITALS (12 sets, daily range): BP systolic 106–126; BP diastolic 78–86
--- NOTE | 2020-05-28 00:52 | Progress Note ---
DATE: SUBJECTIVE: The patient states he is "sore" from physical therapy today. Per documentation, my child welfare caseworker spoke with Ashu in PT regarding his evaluation, who states that with minimal exertion, the patient start coughing and desaturate into the 60s. Apparently, he had to be put on non-rebreather mask in order to get his oxygen saturations back up to the 90s, just stated that there is no way that the patient would be able to tolerate inpatient rehab at this time. Physical therapist planning on working with the patient tomorrow. The patient does use incentive spirometer, able to sit up on the edge of the bed today. He has a good appetite, minimal phlegm, desaturation considerably with activity. OBJECTIVE: VITAL SIGNS: Temperature 98.0, heart rate 101, blood pressure 106/72, respirations 22, oxygen saturation 96%. GENERAL: Currently no acute distress. LUNGS: Nonlabored respirations, currently on oxygen at 5 L/minute, humidified via nasal cannula at high flow. HEENT: EOMI. NECK: Supple. CARDIOVASCULAR: Regular rate and rhythm without murmur. ABDOMEN: Bowel sounds positive. Soft, nontender. EXTREMITIES: Without pitting edema. No clubbing, cyanosis, or signs of DVT. NEUROLOGICAL: GCS 15. Nonfocal. LABORATORY DATA: WBC 8.27, hemoglobin 13.5, hematocrit 44.6, and platelets 227. Sodium 136, potassium 4.8, chloride 99, CO2 31, anion gap 10.8, BUN 17, creatinine 0.83, estimated GFR greater than 60, glucose 112, and calcium 9.0. IMAGING: No new chest x-ray results. ASSESSMENT/PLAN: 1. COVID-19 pneumonia with ARDS. Continue to wean oxygen as tolerated. Infectious Diseases and Pulmonology following. Continue Lovenox, vitamin C, vitamin D, zinc sulfate, p.r.n. use of non-rebreather mask, has been discontinued per order I entered yesterday. 2. Transaminitis, AST 41. On 05/24, otherwise LFTs within normal limits. 3. Prophylaxis, Lovenox and Pepcid. Billing code [id number]. Time spent 35 minutes. Dictated by Lang North, RODRICK Shaka Humphreys MD [facility] /[id number]
--- NOTE | 2020-05-28 06:59 | NUR ---
Patient resting in bed, respirations even and unlabored on 3.5L NC, no s/s of distress at this time. All safety measures in place.
[2020-05-28] MEDS: ENOXAPARIN INJ 80 MG/0.8 ML SYR SC SCH ×2 (09:34→20:37)
[2020-05-28] MEDS: CHOLECALCIFEROL 400 UNIT TAB PO SCH ×2 (09:34→20:37)
[2020-05-28] MEDS: GUAIFENESIN 600MG/DEXTROMETHORPHAN 30MG TABSR PO SCH ×2 (09:34→16:37)
[2020-05-28] MEDS: ZINC SULFATE 220 MG CAP PO SCH (09:34)
[2020-05-28] MEDS: FAMOTIDINE 20 MG/2 ML VIAL IV SCH ×2 (09:34→16:37)
[2020-05-28] MEDS: ASCORBIC ACID 500 MG TAB PO SCH (09:34)
[2020-05-28] MEDS: DOCUSATE SODIUM 100 MG CAP PO SCH ×2 (09:34→16:37)
[2020-05-28] MEDS: PANTOPRAZOLE 40 MG 10ML VIAL IV SCH (09:34)
[2020-05-28] MEDS: ACETAMINOPHEN 325 MG TAB PO PRN ×2 (09:35→16:06)
[2020-05-28] MEDS ORDERED: LACTATED RINGER'S 500 ML INJ ONE ×2 (13:15→16:45)
--- NOTE | 2020-05-28 14:08 | Progress Note ---
DATE: SUBJECTIVE: The patient had physical therapy yesterday, but had some desaturations and tachycardia. He is now on 6 L nasal cannula. PHYSICAL EXAMINATION: VITAL SIGNS: Blood pressure is 106/70, saturations 98%. HEENT: Shows no facial swelling or erythema. CARDIAC: Reveals regular rate and rhythm with normal S1, S2. LUNGS: Auscultation of lungs reveals crackles at the bases. There is no wheezing. ABDOMEN: Soft and nontender. There is no rebound or guarding. EXTREMITIES: Shows no leg edema or calf tenderness. There is no cyanosis or clubbing. SKIN: Shows no rashes. NEUROLOGICAL: Shows no focal abnormalities. LABORATORY DATA: White blood cell count is 8.2, hemoglobin is 13.5, and the platelet count is 227. The BUN to creatinine ratio is normal. The other electrolytes are within normal limits. IMPRESSION: 1. Acute respiratory failure. 2. COVID-19 and viral pneumonia. 3. Anemia. PLAN: 1. Continue to wean oxygen. 2. Small amount of supplemental fluids. 3. Nutritional supplementation. 4. Physical therapy. 5. Lovenox. Pepe Kirkpatrick MD [facility] /[id number]
--- NOTE | 2020-05-28 19:15 | NUR ---
Resumed care of patient. Patient awake and resting in bed, respirations even and unlabored on 6L high flow NC, no s/s of distress at this time. All safety measures in place.
[2020-05-28] MEDS: HYDROCODONE/CHLORPHENIRAMINE 5 ML LIQCR PO PRN (19:17)
[2020-05-28] MEDS: ATORVASTATIN 20 MG TAB PO SCH (20:37)
[2020-05-29] VITALS (10 sets, daily range): BP systolic 114–126; BP diastolic 76–88
--- NOTE | 2020-05-29 02:10 | NUR ---
Lang North [employer]GE[employer] here to see patient. No new orders received at this time.
[2020-05-29] MEDS: HYDROCODONE/CHLORPHENIRAMINE 5 ML LIQCR PO PRN ×2 (07:45→22:01)
[2020-05-29] MEDS: CHLORASEPTIC SPRAY 177 ML BTL MM PRN (09:41)
[2020-05-29] MEDS: CHOLECALCIFEROL 400 UNIT TAB PO SCH (09:41)
[2020-05-29] MEDS: GUAIFENESIN 600MG/DEXTROMETHORPHAN 30MG TABSR PO SCH ×2 (09:41→16:40)
[2020-05-29] MEDS: PANTOPRAZOLE 40 MG 10ML VIAL IV SCH (09:41)
[2020-05-29] MEDS: DOCUSATE SODIUM 100 MG CAP PO SCH ×2 (09:41→16:40)
[2020-05-29] MEDS: ENOXAPARIN INJ 80 MG/0.8 ML SYR SC SCH ×2 (09:41→22:01)
[2020-05-29] MEDS: FAMOTIDINE 20 MG/2 ML VIAL IV SCH ×2 (09:41→16:40)
--- NOTE | 2020-05-29 17:49 | Progress Note ---
DATE: SUBJECTIVE: The patient is still having desaturations with exercise. He is on 6 L. PHYSICAL EXAMINATION: VITAL SIGNS: The pulse is 114, respiratory rate is 18 and the blood pressure is 118/78. Saturation is 98% on 6 L. HEENT: No facial swelling or erythema. LYMPHATIC: No submandibular, cervical, or supraclavicular adenopathy. CARDIAC: Regular rate and rhythm with normal S1, S2. LUNGS: Auscultation of lungs reveals rhonchorous breath sounds bilaterally. There is no wheezing. ABDOMEN: Soft, nontender. There is no rebound or guarding. EXTREMITIES: No leg edema or calf tenderness. There is no cyanosis or clubbing. IMPRESSION: 1. Acute respiratory failure. 2. Viral pneumonia and coronavirus disease-19 infection. 3. Anemia. PLAN: 1. Continue physical therapy. 2. Cough suppressants. 3. Nutritional supplementation. 4. Lovenox. Pepe Kirkpatrick MD [facility]/[place] /[id number]
[2020-05-29] MEDS: ATORVASTATIN 20 MG TAB PO SCH (22:01)
[2020-05-30] VITALS (8 sets, daily range): BP systolic 121–129; BP diastolic 83–95
[2020-05-30 06:19] LABS: BASOPHILS % 0.4 % (0.0-1.0); EOSINOPHILS # (AUTO) 0.2 (0.0-0.4); EOSINOPHILS % 2.6 % (0.0-6.0); HEMATOCRIT 39.7 % (38.2-49.6); HEMOGLOBIN 12.4 g/dL (14.0-18.0); LYMPHOCYTES # (AUTO) 2.2 (1.0-3.2); MEAN CORPUSCULAR HEMOGLOBIN 23.4 pg (28-32); MEAN CORPUSCULAR HGB CONC 31.2 g/dL (31-35); NEUTROPHILS # (AUTO) 4.4 (2.1-6.9); NEUTROPHILS % 55.7 % (38.7-80.0); PLATELET COUNT 240 x10e3/uL (140-360); RED BLOOD COUNT 5.29 x10e6/uL (4.3-5.7); RED CELL DISTRIBUTION WIDTH 22.6 % (11.7-14.4)
[2020-05-30 06:32] LABS: ANION GAP 11.9 mmol/L (8-16); BLOOD UREA NITROGEN 12 mg/dL (7-26); BUN/CREATININE RATIO 17 (6-25); CALCIUM 8.7 mg/dL (8.4-10.2); CARBON DIOXIDE 29 mmol/L (22-29); CHLORIDE 97 mmol/L (98-107); CREATININE, SERUM 0.69 mg/dL (0.72-1.25); EST GLOMERULAR FILTRATION RATE > 60 ML/MIN (60-); GLUCOSE 108 mg/dL (74-118); MAGNESIUM 1.8 MG/DL (1.3-2.1); PHOSPHORUS 3.3 MG/DL (2.3-4.7); POTASSIUM 3.9 mmol/L (3.5-5.1); SODIUM 134 mmol/L (136-145)
--- NOTE | 2020-05-30 07:00 | NUR ---
Report received from PM shift nurse. Patient received sitting up HOB elevated 30 degrees in no acute distress. Patient stated no current needs. Patient was educated on fall risk precautions. Pt verbalized understanding. Call light and belongings were placed nearby. Will continue to monitor
--- NOTE | 2020-05-30 07:55 | NUR ---
REPORT RECEIVED ON COVID POSITIVE PATIENT. PATIENT RECEIVED SITTING UP HOB ELEVATED 30 DEGREES IN NO ACUTE DISTRESS. NASAL CANNULA PRESENT IN NARES. PATIENT STATED NO CURRENT NEEDS. PATIENT WAS EDUCATED ON FALL RISK PRECAUTIONS AND TO CALL WITH NEEDS. CALL LIGHT AND BELONGINGS PLACED NEARBY. WILL CONTINUE TO MONITOR
[2020-05-30] MEDS: FAMOTIDINE 20 MG/2 ML VIAL IV SCH ×2 (09:16→17:34)
[2020-05-30] MEDS: DOCUSATE SODIUM 100 MG CAP PO SCH ×2 (09:16→17:00)
[2020-05-30] MEDS: GUAIFENESIN 600MG/DEXTROMETHORPHAN 30MG TABSR PO SCH ×2 (09:16→17:34)
[2020-05-30] MEDS: ENOXAPARIN INJ 80 MG/0.8 ML SYR SC SCH (09:16)
[2020-05-30] MEDS: PANTOPRAZOLE 40 MG 10ML VIAL IV SCH (09:16)
--- NOTE | 2020-05-30 13:58 | NUR ---
Infectious disease progress note e patient is still having desaturations with exercise. He is on 6 L. patient is feeling better still weak PHYSICAL EXAMINATION: VITAL SIGNS: The pulse is 114, respiratory rate is 18 and the blood pressure is 118/78. Saturation is 98% on 6 L. HEENT: No facial swelling or erythema. LYMPHATIC: No submandibular, cervical, or supraclavicular adenopathy. CARDIAC: Regular rate and rhythm with normal S1, S2. LUNGS: Auscultation of lungs reveals rhonchorous breath sounds bilaterally. There is no wheezing. ABDOMEN: Soft, nontender. There is no rebound or guarding. EXTREMITIES: No leg edema or calf tenderness. There is no cyanosis or clubbing. IMPRESSION: 1. Acute respiratory failure. 2. Viral pneumonia and coronavirus disease-19 infection. 3. Anemia. PLAN: 1. Continue physical therapy. 2. Cough suppressants. 3. Nutritional supplementation. 4. Lovenox.
--- NOTE | 2020-05-30 14:35 | Progress Note ---
DATE: SUBJECTIVE: The patient is down to 4 L. He complains of some pain in his right hip after twisting his leg. PHYSICAL EXAMINATION: VITAL SIGNS: The patient is afebrile. The vital signs are stable. HEENT: Shows no facial swelling or erythema. CARDIAC: Reveals regular rate and rhythm with normal S1 and S2. LUNGS: Auscultation of lungs reveals clear breath sounds bilaterally. There is no wheezing. ABDOMEN: Soft and nontender. There is no rebound or guarding. EXTREMITIES: Does show some pain with passive motion of the right hip. There is some tenderness over the trochanteric bursa. IMPRESSION: 1. Viral pneumonia and COVID-19 infection. 2. Acute respiratory failure that has resolved. 3. Anemia secondary to chronic blood loss. 4. Hip pain. PLAN: 1. X-rays of the hip and orthopedic consult. 2. Continue physical therapy. 3. Wean oxygen. 4. Nutritional supplementation. 5. Continue Lovenox. MD RYNE Martinez/[place] /[id number]
--- NOTE | 2020-05-30 15:02 | Diagnostic Imaging Report ---
EXAMINATION: HIP RIGHT 2-3 VW (+/- PELVIS) INDICATION: Hip pain COMPARISON: None FINDINGS: AP view of the pelvis and AP and frog-leg views of the right hip demonstrate no acute fracture or dislocation. Alignment is anatomic. No substantial degenerative change. Soft tissues appear unremarkable. IMPRESSION: No acute osseous injury. Signed by: Luna Edwards MD on 05/30/2020 2:59 PM
[2020-05-30] MEDS ORDERED: MORPHINE SULFATE 2 MG/ML SYR 1ML IV STA (16:40)
--- NOTE | 2020-05-30 17:57 | NUR ---
ORDER TO D/C ISOLATION AND TRANSFER TO MED SURG PER DR. ARMSTRONG. PT WITH BELONGINGS TRANSFERRED TO ROOM 207, REPORT GIVEN TO SHAHID DYERISK AND COMPLIANCE ANALYTICS DIRECTOR MADE AWARE OF TRANSFER. Addendum: 05/30/20 at 1822 by Rachelle Solis RN PATIENT TRANSFERRED TO ROOM 299; REPORT GIVEN TO TRACY DYE
--- NOTE | 2020-05-30 19:28 | NUR ---
Patient received sitting up in bed. AAO x 4. Patient had no complaints of pain. Respirations even and non-labored on 4L NC. Safety measures in place. Patient instructed to call for assistance when needed. Call light within reach.
[2020-05-30] MEDS: ATORVASTATIN 20 MG TAB PO SCH (21:27)
[2020-05-30] MEDS: HYDROCODONE/CHLORPHENIRAMINE 5 ML LIQCR PO PRN (21:42)
[2020-05-30] MEDS ORDERED: NAPROXEN 250 MG TAB PO ONE (22:00)
[2020-05-30] MEDS ORDERED: CYCLOBENZAPRINE HCL 10 MG TAB PO ONE (22:30)
[2020-05-31] VITALS (9 sets, daily range): BP systolic 117–139; BP diastolic 55–91
[2020-05-31] MEDS ORDERED: NAPROXEN 250 MG TAB PO PRN (03:45)
--- NOTE | 2020-05-31 07:00 | NUR ---
Patient resting comfortably. Walking rounds done . Bed-side report given to oncoming nurse.
[2020-05-31] MEDS: DOCUSATE SODIUM 100 MG CAP PO SCH ×2 (09:00→17:00)
[2020-05-31] MEDS: CYCLOBENZAPRINE HCL 10 MG TAB PO SCH ×2 (09:02→17:48)
[2020-05-31] MEDS: GUAIFENESIN 600MG/DEXTROMETHORPHAN 30MG TABSR PO SCH ×2 (09:02→17:48)
[2020-05-31] MEDS: FAMOTIDINE 20 MG/2 ML VIAL IV SCH (09:02)
[2020-05-31] MEDS: PANTOPRAZOLE 40 MG 10ML VIAL IV SCH (09:02)
[2020-05-31] MEDS: ENOXAPARIN SOD INJ 40 MG/0.4 ML SYR SC SCH (09:03)
[2020-05-31] MEDS: HYDROCODONE/CHLORPHENIRAMINE 5 ML LIQCR PO PRN ×2 (12:31→18:13)
--- NOTE | 2020-05-31 13:38 | Progress Note ---
DATE: SUBJECTIVE: The patient still has some pain in his right hip. This has limited his work with physical therapy. He has less coughing. He is still requiring oxygen at 4 L, but he is saturating 100%. PHYSICAL EXAMINATION: VITAL SIGNS: Stable. HEENT: Shows no facial swelling or erythema. LYMPHATIC: Shows no submandibular, cervical, or supraclavicular adenopathy. CARDIAC: Reveals regular rate and rhythm with normal S1 and S2. LUNGS: Auscultation of lungs reveals rhonchorous breath sounds bilaterally. There is no wheezing. ABDOMEN: Soft and nontender. There is no rebound or guarding. EXTREMITIES: Shows no leg edema or calf tenderness. IMPRESSION: 1. Viral pneumonia and COVID-19 infection. 2. Hip pain on the right side. 3. Anemia secondary to chronic blood loss. PLAN: 1. Orthopedic consultation. 2. Continue physical therapy. 3. Wean oxygen. 4. Nutritional supplementation. Pepe Kirkpatrick MD [facility]/[place] /[id number]
--- NOTE | 2020-05-31 13:50 | NUR ---
Dr Brantley had rounds, no new orders, patient not in any distress
--- NOTE | 2020-05-31 16:22 | NUR ---
he patient still has some pain in his right hip. This has limited his work with physical therapy. He has less coughing. He is still requiring oxygen at 4 L, but he is saturating 100%. PHYSICAL EXAMINATION: VITAL SIGNS: Stable. HEENT: Shows no facial swelling or erythema. LYMPHATIC: Shows no submandibular, cervical, or supraclavicular adenopathy. CARDIAC: Reveals regular rate and rhythm with normal S1 and S2. LUNGS: Auscultation of lungs reveals rhonchorous breath sounds bilaterally. There is no wheezing. ABDOMEN: Soft and nontender. There is no rebound or guarding. EXTREMITIES: Shows no leg edema or calf tenderness. IMPRESSION: 1. Viral pneumonia and COVID-19 infection.resolved 2. Hip pain on the right side. 3. Anemia secondary to chronic blood loss. cont same patient no longer infectious ortho eval
--- NOTE | 2020-05-31 18:27 | NUR ---
patient resting in bed, alert with no distress, call light in reach
--- NOTE | 2020-05-31 19:30 | NUR ---
Bedside report given, received pt in bed awake a/o x3, denies discomfort at this time, no s/sx of acute distress noted. Bed in low and locked position, call light and personal items within reach. Will cont to mon
[2020-05-31] MEDS: ATORVASTATIN 20 MG TAB PO SCH (20:23)
[2020-06-01] VITALS (8 sets, daily range): BP systolic 111–127; BP diastolic 77–90
[2020-06-01] MEDS: HYDROCODONE/APAP 10MG-325MG TAB PO PRN ×2 (00:47→09:35)
[2020-06-01] MEDS: HYDROCODONE/CHLORPHENIRAMINE 5 ML LIQCR PO PRN ×3 (00:47→18:09)
[2020-06-01 06:56] LABS: BASOPHILS % 0.4 % (0.0-1.0); EOSINOPHILS # (AUTO) 0.2 (0.0-0.4); EOSINOPHILS % 3.4 % (0.0-6.0); HEMATOCRIT 41.5 % (38.2-49.6); HEMOGLOBIN 12.6 g/dL (14.0-18.0); LYMPHOCYTES # (AUTO) 2.2 (1.0-3.2); LYMPHOCYTES % 30.8 % (18.0-39.1); MEAN CORPUSCULAR HEMOGLOBIN 23.6 pg (28-32); MEAN CORPUSCULAR HGB CONC 30.4 g/dL (31-35); MEAN CORPUSCULAR VOLUME 77.6 fL (81-99); MONOCYTES # (AUTO) 1.1 (0.2-0.8); MONOCYTES % 15.4 % (4.4-11.3); NEUTROPHILS # (AUTO) 3.5 (2.1-6.9); NEUTROPHILS % 49.7 % (38.7-80.0); PLATELET COUNT 264 x10e3/uL (140-360); RED BLOOD COUNT 5.35 x10e6/uL (4.3-5.7); RED CELL DISTRIBUTION WIDTH 22.3 % (11.7-14.4)
[2020-06-01 07:18] LABS: ALANINE AMINOTRANSFERASE 103 IU/L (0-55); ALBUMIN 2.6 g/dL (3.5-5.0); ALBUMIN/GLOBULIN RATIO 0.6 (0.8-2.0); ALKALINE PHOSPHATASE 83 IU/L (40-150); ANION GAP 11.5 mmol/L (8-16); BLOOD UREA NITROGEN 11 mg/dL (7-26); BUN/CREATININE RATIO 14 (6-25); CALCIUM 9.2 mg/dL (8.4-10.2); CARBON DIOXIDE 31 mmol/L (22-29); CHLORIDE 98 mmol/L (98-107); CREATININE, SERUM 0.77 mg/dL (0.72-1.25); EST GLOMERULAR FILTRATION RATE > 60 ML/MIN (60-); GLUCOSE 101 mg/dL (74-118); POTASSIUM 4.5 mmol/L (3.5-5.1); SODIUM 136 mmol/L (136-145)
--- NOTE | 2020-06-01 07:58 | NUR ---
ASSUMED CARE. RESTING IN BED. ACYANOTIC. NO DISTRESS NOTED. CALL LIGHT IN REACH. SIDE RAILS UP X2. BED LOW AND LOCKED.
[2020-06-01] MEDS: PANTOPRAZOLE 40 MG 10ML VIAL IV SCH (08:38)
[2020-06-01] MEDS: ENOXAPARIN SOD INJ 40 MG/0.4 ML SYR SC SCH (08:39)
[2020-06-01] MEDS: CYCLOBENZAPRINE HCL 10 MG TAB PO SCH ×2 (08:39→16:40)
[2020-06-01] MEDS: DOCUSATE SODIUM 100 MG CAP PO SCH ×2 (08:39→16:40)
[2020-06-01] MEDS: GUAIFENESIN 600MG/DEXTROMETHORPHAN 30MG TABSR PO SCH ×2 (08:39→16:40)
--- NOTE | 2020-06-01 17:01 | NUR ---
AAOX3. ACYANOTIC. SITTING IN CHAIR AT BEDSIDE WITH O2 AT 4L VIA NASAL CANNULA. O2 SAT IS 98 PERCENT AND HEART RATE IS SINUS RHYTHM 99. NO DISTRESS NOTED. CALL LIGHT IN REACH. RECLINER CHAIR LOCKED. PATIENT PREPARING TO EAT DINNER.
--- NOTE | 2020-06-01 17:30 | NUR ---
Nutrition Screen Note RD Recommendation for Physician: -Continue current diet regimen and supplement Plan of Care: RD following, monitoring for tolerance and adequacy Nutrition reason for involvement: follow up Primary Diagnose(s): acute respiratory disease due to COVID-19 virus PMH: Hyperlipidemia and dislocated elbow Ht: 71 in Wt:175 lbs (05/23) 215 lb (04/28) questionable weight change BMI: 24.5 kg/m2 IBW:[address] Assessment: 06/01: Follow up. Chart reviewed. It is recorded that pt consumed 75% of meals yesterday. Will continue to monitor. 05/25: Follow up. Pt eating 50-100% of meals and drinking Ensure TID. Labs reviewed, WNL. Meds reviewed. No GI distress noted. Skin intact. Chart reviewed. Will continue to monitor. 05/20: Follow up. Chart reviewed. It is recorded that pt is consuming 75-100% of meals. Will continue to monitor. 05/13: Follow up. Chart reviewed. RD called pts nurse over the phone. RN stated that pt consumed all of his breakfast this morning and is drinking Ensure. Will continue to monitor. 05/06: Follow up. Chart reviewed. RD called pt's nurse over the phone. RN stated pt is consuming 75% of his meals and is drinking Ensure nutrition supplements. Will continue to monitor. (04/29/20) Chart reviewed. Labs and meds reviewed. Pt is a 49 year old male admitted with acute respiratory disease due to COVID-19. Pt was transferred to the [facility] ICU and is on high-flow oxygen. Unable to speak to pt due to isolation restrictions. Pt is currently on a cardiac diet with Ensure Enlive ordered BID. It is recorded that pt consumed 75% of lunch today and 100% of dinner yesterday. There are no previous weights in chart. Will continue to monitor. Current Diet: cardiac diet with Ensure Enlive TID Malnutrition Evaluation (05/25/20) Unable to evaluate per current isolation protocol. Will re-evaluate at follow-up as appropriate. Diet Education Needs Assessment: RD is available for diet education as needed Nutrition Care Level: low Signed: Kiana Purdy RD, LD
--- NOTE | 2020-06-01 19:20 | NUR ---
Patient visited in room during nursing rounds. Patient alert and oriented x3. Currently sitting on bedside recliner chair. On 4L Hi-flow NC. Oxygen tank in room to be used by patient when he will be discharged. 15L Non-rebreather ready for prn use especially during ambulation. Call mcbride within reach.
--- NOTE | 2020-06-01 19:51 | Progress Note ---
DATE: 05/28/2020 CONSULTING PHYSICIANS: 1. Dr. Vicky Evans with Infectious Disease. 2. Dr. Pepe Kirkpatrick with Pulmonology. SUBJECTIVE: The patient out of bed and up in chair with PT. States he is "sore." Currently, he is not using non-rebreather mask as a crutch. The patient reports that his cough was better yesterday, but is back today. Encourage incentive spirometry. The patient reports that his recovery while out of bed is quicker. OBJECTIVE: VITAL SIGNS: Temperature 98.2, pulse 111, blood pressure 117/82, respirations 20, and oxygen saturation 97%. GENERAL: No acute distress. LUNGS: Respirations nonlabored. Currently, oxygen at 5 L/min via high-flow with humidification. HEENT: EOMI. NECK: Supple. CARDIOVASCULAR: Regular rate and rhythm without murmur. ABDOMEN: Bowel sounds positive. Soft, nontender. EXTREMITIES: No pitting edema. No clubbing, cyanosis, or notable swelling. NEUROLOGIC: GCS is 15. Nonfocal. LABORATORY DATA: Lab holiday. IMAGING: No new chest x-ray results. ASSESSMENT AND PLAN: 1. COVID-19 pneumonia. Continue to wean oxygen as tolerated. Infectious Disease and Pulmonology following. Continue Lovenox, vitamin C, vitamin D, zinc sulfate, incentive spirometry, physical therapy as tolerated. 2. Debility. The patient encouraged to continue getting out of bed. PT as tolerated. 3. Transaminitis. Last AST 41. 4. Tachycardia, heart rate 111, monitor. * prophylaxis. Lovenox and Pepcid. BILLING CODE: [id number]. TIME SPENT: 35 minutes. Dictated by Lang North NP Shaka Humphreys MD [facility] /[id number]
--- NOTE | 2020-06-01 19:51 | Progress Note ---
DATE: 05/29/2020 SUBJECTIVE: The patient still having congestive cough, off and on, and on Tussionex. The patient states cough is "relentless." Last bowel movement 05/28. The patient reports his chest is sore with cough, but still getting out of bed some. Reports he has a great appetite. OBJECTIVE: VITAL SIGNS: Temperature 98.8, pulse 111, blood pressure 114/83, respirations 18, and oxygen saturation 98%. GENERAL: No acute distress. LUNGS: Respirations even and nonlabored. He is currently on 4 L of oxygen, humidified via high-flow nasal cannula. HEENT: EOMI. NECK: Supple. CARDIOVASCULAR: Regular rate and rhythm without murmur. ABDOMEN: Bowel sounds positive. Soft, nontender. EXTREMITIES: Without pitting edema. No clubbing, cyanosis, or signs of DVT. NEUROLOGICAL: GCS 15. Nonfocal. DIAGNOSTIC STUDIES: Fingerstick blood glucose level 146. Coronavirus PCR was positive on 04/28/2020. IMAGING: No new chest x-ray results. ASSESSMENT AND PLAN: 1. COVID-19 pneumonia. Continue to wean oxygen as tolerated. Continue Lovenox, vitamin C, vitamin D, Zinc sulfate. The patient is no longer using a non-rebreather mask as a crutch. As the patient remains at 4 L/minute, we will obtain home oxygen evaluation soon. 2. Debility, the patient was seen by Physical Therapy yesterday and he performed well. He has poor tolerance to therapeutic activities, but he is cooperative and motivated. This patient has poor lung reserve intakes in quite a bit of time to recover whenever he becomes short winded. 3. Transaminitis, most recent AST 41. 4. Tachycardia, heart rate 111. This is likely compensatory due to hypoxia. 5. Prophylaxis, Lovenox and Pepcid. Billing code [id number]. Time spent 35 minutes. Dictated by Lang North NP Shaka Humphreys MD [facility] /[id number]
--- NOTE | 2020-06-01 20:36 | Progress Note ---
DATE: 05/30/2020 CONSULTING PHYSICIANS: 1. Dr. Vicky Evans with Infectious Disease. 2. Dr. Pepe Kirkpatrick with Pulmonology. 3. De. Brantley with orthopedic. SUBJECTIVE: The patient is currently lying supine in bed. He is working with Julian, the physical therapist. He remains in the [facility], bed #184. Oxygen saturation 88% on room air at rest and oxygen saturation 96% on 4 L of oxygen via nasal cannula. Currently, his chief complaint is right hip pain. He is having difficulty participating with physical therapy due to this right hip pain, even though he is motivated. OBJECTIVE: VITAL SIGNS: Temperature 98.4, pulse 102, blood pressure 129/86, respirations 18, and oxygen saturation 96%. GENERAL: Mild distress with sciatica like pain at the right hip. LUNGS: Mild tachypnea as the patient has poor lung reserve and requires additional recovery time when he becomes short of breath from the right hip pain. Oxygen at 4 L/min via humidified high-flow nasal cannula. HEENT: EOMI. NECK: Supple. CARDIOVASCULAR: Regular rate and rhythm without murmur, tachycardia continues. ABDOMEN: Bowel sounds positive. Soft, nontender. EXTREMITIES: No pitting edema. No clubbing, cyanosis, or notable swelling. NEUROLOGIC: GCS is 15, nonfocal. LABORATORY DATA: WBC 7.83, hemoglobin 12.4, hematocrit 39.7, and platelets 240. Sodium 134, potassium 3.9, chloride 97, CO2 of 29, anion gap 11.9, BUN 12, creatinine 0.69, estimated GFR greater than 60, glucose 108, calcium 8.7, phosphorus 3.3, magnesium 1.8. Fingerstick blood glucose level 116. IMAGING STUDIES: Right hip x-ray showed no acute osseous injury. ASSESSMENT AND PLAN: 1. COVID-19 pneumonia. Infectious Disease and Pulmonology following. Continue Lovenox, vitamin C, vitamin D, zinc sulfate. Wean oxygen to room air as tolerated. 2. Debility with sciatica like right hip pain, but this pain is preventing the patient from progressing with physical therapy. Dr. Brantley has been consulted with Orthopedics. I have entered orders for cold compresses to the right hip. He is put on morphine sulfate 2 mg IV once, [place] 10 mg q.6 hours p.r.n., Naprosyn, Flexeril . Physical therapy to continue to follow. 3. Transaminitis. Recheck LFTs soon. 4. Mild tachycardia. Monitor. 5. Mild acute hyponatremia, sodium 134. Monitor. 6. Mild hypochloremia, chloride 97, monitor. * prophylaxis. Lovenox and Pepcid. DISPOSITION: Transfer to floor. BILLING CODE: 51236. TIME SPENT: 35 minutes. Dictated by Lang North NP MD SERINA Kelley/MODL /[id number]
[2020-06-01] MEDS: ATORVASTATIN 20 MG TAB PO SCH (21:50)
--- NOTE | 2020-06-01 21:50 | NUR ---
Pt assisted back in bed and noticeably easily gets short of breath thus wearing 15L of NRB along with 4L Hi-flow NC. O2 sat at 95% at this time.
[2020-06-02] VITALS (7 sets, daily range): BP systolic 99–125; BP diastolic 70–89
[2020-06-02] MEDS: HYDROCODONE/APAP 10MG-325MG TAB PO PRN (00:08)
[2020-06-02 06:17] LABS: BASOPHILS % 0.4 % (0.0-1.0); EOSINOPHILS # (AUTO) 0.3 (0.0-0.4); EOSINOPHILS % 4.1 % (0.0-6.0); HEMATOCRIT 37.8 % (38.2-49.6); HEMOGLOBIN 12.2 g/dL (14.0-18.0); LYMPHOCYTES # (AUTO) 2.5 (1.0-3.2); LYMPHOCYTES % 35.7 % (18.0-39.1); MEAN CORPUSCULAR HEMOGLOBIN 25.8 pg (28-32); MEAN CORPUSCULAR HGB CONC 32.3 g/dL (31-35); MEAN CORPUSCULAR VOLUME 79.9 fL (81-99); MONOCYTES # (AUTO) 0.9 (0.2-0.8); MONOCYTES % 13.1 % (4.4-11.3); NEUTROPHILS # (AUTO) 3.2 (2.1-6.9); NEUTROPHILS % 46.4 % (38.7-80.0); PLATELET COUNT 212 x10e3/uL (140-360); RED BLOOD COUNT 4.73 x10e6/uL (4.3-5.7); RED CELL DISTRIBUTION WIDTH 24.6 % (11.7-14.4)
[2020-06-02 06:43] LABS: ALANINE AMINOTRANSFERASE 112 IU/L (0-55); ALBUMIN 2.6 g/dL (3.5-5.0); ALBUMIN/GLOBULIN RATIO 0.6 (0.8-2.0); ALKALINE PHOSPHATASE 84 IU/L (40-150); ANION GAP 11.8 mmol/L (8-16); BLOOD UREA NITROGEN 14 mg/dL (7-26); BUN/CREATININE RATIO 19 (6-25); CALCIUM 9.3 mg/dL (8.4-10.2); CARBON DIOXIDE 32 mmol/L (22-29); CHLORIDE 97 mmol/L (98-107); CREATININE, SERUM 0.72 mg/dL (0.72-1.25); EST GLOMERULAR FILTRATION RATE > 60 ML/MIN (60-); GLUCOSE 98 mg/dL (74-118); POTASSIUM 4.8 mmol/L (3.5-5.1); SODIUM 136 mmol/L (136-145)
--- NOTE | 2020-06-02 07:32 | NUR ---
ASSUMED CARE. AAOX3. RESTING IN BED. O2 AT 4L VIA NASAL CANNULA. ACYANOTIC. NO DISTRESS NOTED. CALL LIGHT IN REACH. SIDE RAILS UP X2. BED LOW AND LOCKED.
[2020-06-02] MEDS: DOCUSATE SODIUM 100 MG CAP PO SCH ×2 (09:00→16:14)
[2020-06-02] MEDS: PANTOPRAZOLE 40 MG 10ML VIAL IV SCH (09:02)
[2020-06-02] MEDS: CYCLOBENZAPRINE HCL 10 MG TAB PO SCH ×2 (09:02→16:14)
[2020-06-02] MEDS: GUAIFENESIN 600MG/DEXTROMETHORPHAN 30MG TABSR PO SCH ×2 (09:02→16:14)
[2020-06-02] MEDS: ENOXAPARIN SOD INJ 40 MG/0.4 ML SYR SC SCH (09:03)
[2020-06-02] MEDS: HYDROCODONE/CHLORPHENIRAMINE 5 ML LIQCR PO PRN (16:10)
--- NOTE | 2020-06-02 17:06 | Progress Note ---
DATE: SUBJECTIVE: The patient is having more episodes of coughing. He is still on oxygen at 4 L. He was cleared by Speech Therapy. They did not feel he is in risk for aspiration. Physical Therapy is working with the patient, but he becomes tachycardiac and very fatigued quickly. The patient was also evaluated by Orthopedics. He is being treated for trochanteric bursitis. PHYSICAL EXAMINATION: VITAL SIGNS: The blood pressure is 99/70, saturation is 100% on 4 L and the pulse is 98. HEENT: No facial swelling or erythema. LYMPHATIC: No submandibular, cervical, or supraclavicular adenopathy. CARDIAC: Regular rate and rhythm with normal S1, S2. LUNGS: Auscultation of lungs reveals rhonchorous breath sounds bilaterally. There is no wheezing. ABDOMEN: Soft, nontender. There is no rebound or guarding. EXTREMITIES: No leg edema or calf tenderness. IMPRESSION: 1. Resolving viral pneumonia and coronavirus disease-19 infection. 2. Trochanteric bursitis. 3. Anemia. PLAN: 1. The patient needs physical therapy. This will be critical for his recovery. 2. Continue to wean oxygen as tolerated. 3. Continue Lovenox. 4. Continue cough syrup as needed. 5. Decrease pain medications. 6. Treat gastroesophageal reflux. Pepe Kirkpatrick MD [facility]/MODL /[id number]
[2020-06-02] MEDS ORDERED: HYDROCODONE/APAP 5MG-325MG TAB PO PRN (18:45)
[2020-06-02] MEDS ORDERED: CYCLOBENZAPRINE HCL 10 MG TAB PO PRN (18:45)
[2020-06-02] MEDS ORDERED: NAPROXEN 250 MG TAB PO PRN (18:45)
--- NOTE | 2020-06-02 19:40 | NUR ---
Patient visited in room during nursing rounds. Patient alert and oriented x3. Currently laying in bed and using 4L Hi-flow NC. Oxygen tank in room to be used by patient when he will be discharged. 15L Non-rebreather ready for prn use especially during ambulation. Patient has intermittent pain to right hip and will be medicated accordingly. Call mcbride within reach.
--- NOTE | 2020-06-02 21:40 | NUR ---
Pt received last dose of Lipitor 20mg PO.
--- NOTE | 2020-06-02 22:10 | Diagnostic Imaging Report ---
EXAMINATION: CHEST SINGLE (PORTABLE) INDICATION: Evaluation for viral pneumonia. COMPARISON: Multiple prior chest x-rays including most recent on 05/22/2020. FINDINGS: TUBES and LINES: None. LUNGS: Redemonstration of multifocal patchy interstitial and airspace opacities, slightly improved in the left upper lobe. PLEURA: No pleural effusion or pneumothorax. HEART AND MEDIASTINUM: The cardiomediastinal silhouette is unremarkable. BONES AND SOFT TISSUES: No acute osseous lesion. Soft tissues are unremarkable. UPPER ABDOMEN: No free air under the diaphragm. IMPRESSION: Redemonstration of multifocal pneumonia with slight interval improvement in left upper lobe. Signed by: Evgeny Lloyd MD on 06/02/2020 10:07 PM
[2020-06-03] VITALS (7 sets, daily range): BP systolic 107–133; BP diastolic 72–90
[2020-06-03 06:40] LABS: BASOPHILS % 0.5 % (0.0-1.0); EOSINOPHILS # (AUTO) 0.3 (0.0-0.4); EOSINOPHILS % 4.8 % (0.0-6.0); HEMATOCRIT 39.1 % (38.2-49.6); HEMOGLOBIN 12.2 g/dL (14.0-18.0); LYMPHOCYTES # (AUTO) 1.8 (1.0-3.2); LYMPHOCYTES % 30.3 % (18.0-39.1); MEAN CORPUSCULAR HEMOGLOBIN 24.4 pg (28-32); MEAN CORPUSCULAR HGB CONC 31.2 g/dL (31-35); MONOCYTES # (AUTO) 0.8 (0.2-0.8); MONOCYTES % 13.8 % (4.4-11.3); NEUTROPHILS # (AUTO) 3.1 (2.1-6.9); NEUTROPHILS % 50.3 % (38.7-80.0); PLATELET COUNT 250 x10e3/uL (140-360); RED BLOOD COUNT 5.01 x10e6/uL (4.3-5.7); RED CELL DISTRIBUTION WIDTH 22.9 % (11.7-14.4)
[2020-06-03 07:00] LABS: ALANINE AMINOTRANSFERASE 92 IU/L (0-55); ALBUMIN 2.5 g/dL (3.5-5.0); ALBUMIN/GLOBULIN RATIO 0.6 (0.8-2.0); ALKALINE PHOSPHATASE 80 IU/L (40-150); ANION GAP 11.1 mmol/L (8-16); BLOOD UREA NITROGEN 11 mg/dL (7-26); BUN/CREATININE RATIO 16 (6-25); CALCIUM 8.9 mg/dL (8.4-10.2); CARBON DIOXIDE 31 mmol/L (22-29); CHLORIDE 99 mmol/L (98-107); CREATININE, SERUM 0.69 mg/dL (0.72-1.25); EST GLOMERULAR FILTRATION RATE > 60 ML/MIN (60-); GLUCOSE 93 mg/dL (74-118); POTASSIUM 4.1 mmol/L (3.5-5.1); SODIUM 137 mmol/L (136-145)
--- NOTE | 2020-06-03 07:59 | NUR ---
ASSUMED CARE AT APPROXIMATELY 0715. AAOX3. ACYANOTIC. RESTING IN BED. NO DISTRESS NOTED. CALL LIGHT IN REACH. SIDE RAILS UP X2. BED LOW AND LOCKED.
[2020-06-03] MEDS: HYDROCODONE/CHLORPHENIRAMINE 5 ML LIQCR PO PRN ×3 (09:37→23:40)
[2020-06-03] MEDS: GUAIFENESIN 600MG/DEXTROMETHORPHAN 30MG TABSR PO SCH ×2 (09:37→16:13)
[2020-06-03] MEDS: ENOXAPARIN SOD INJ 40 MG/0.4 ML SYR SC SCH (09:37)
[2020-06-03] MEDS: DOCUSATE SODIUM 100 MG CAP PO SCH ×2 (09:37→16:13)
[2020-06-03] MEDS: PANTOPRAZOLE 40 MG 10ML VIAL IV SCH (09:37)
--- NOTE | 2020-06-03 09:38 | NUR ---
AAOX3. ACYANOTIC. NO DISTRESS NOTED. ASSISTED TO RESTROOM FOR SHOWER BY TECH. PATIENT USES ROLLING WALKER AT BEDSIDE. GAIT STEADY.
--- NOTE | 2020-06-03 09:47 | NUR ---
AAOX3. ACYANOTIC. SITTING IN CHAIR AT BEDSIDE. O2 AT 4L NASAL CANNULA. NO DISTRESS NOTED. CALL LIGHT IN REACH. CHAIR LOCKED. URINAL IN REACH. INSTRUCTED TO CALL FOR ASSISTANCE. VERBALIZED UNDERSTANDING.
[2020-06-03] MEDS: POLYETHYLENE GLYCOL 3350 17 GM PACK PO SCH (12:30)
--- NOTE | 2020-06-03 17:57 | Progress Note ---
DATE: SUBJECTIVE: The patient is still requiring 3 L of oxygen. He still becomes tachycardic with physical therapy and still has weakness, but he is improving. He was sitting up in a chair today. PHYSICAL EXAMINATION: VITAL SIGNS: The patient is afebrile. The blood pressure is 133/90, saturation is 100%. HEENT: Shows no facial swelling or erythema. The oropharynx is normal. LYMPHATIC: Shows no submandibular, cervical, or supraclavicular adenopathy. CARDIAC: Reveals regular rate and rhythm with normal S1 and S2. LUNGS: Auscultation of lungs reveals rhonchorous breath sounds bilaterally. There is no wheezing. ABDOMEN: Soft, nontender. There is no rebound or guarding. EXTREMITIES: Shows no leg edema or calf tenderness. There is no cyanosis or clubbing. SKIN: Shows no rashes. NEUROLOGIC: Shows no focal abnormalities. LABORATORY DATA: CBC is within normal limits. BUN to creatinine, electrolytes are normal. IMPRESSION: 1. Acute respiratory failure. 2. Viral pneumonia and coronavirus disease 2019 infection. 3. Anemia. 4. Trochanteric bursitis. PLAN: 1. Continue physical therapy. 2. Out of bed into chair such as possible. 3. Continue to wean oxygen. 4. Continue Lovenox. 5. Continue to treat gastroesophageal reflux. 6. Discontinue sedatives and pain medications. MD RYNE Martinez/[place] /[id number]
[2020-06-04] VITALS (7 sets, daily range): BP systolic 109–128; BP diastolic 75–95
[2020-06-04 06:51] LABS: BASOPHILS % 0.5 % (0.0-1.0); EOSINOPHILS # (AUTO) 0.3 (0.0-0.4); HEMATOCRIT 37.6 % (38.2-49.6); HEMOGLOBIN 11.9 g/dL (14.0-18.0); LYMPHOCYTES # (AUTO) 2.3 (1.0-3.2); LYMPHOCYTES % 36.5 % (18.0-39.1); MEAN CORPUSCULAR HEMOGLOBIN 24.6 pg (28-32); MEAN CORPUSCULAR HGB CONC 31.6 g/dL (31-35); MEAN CORPUSCULAR VOLUME 77.8 fL (81-99); MONOCYTES # (AUTO) 0.8 (0.2-0.8); MONOCYTES % 13.6 % (4.4-11.3); NEUTROPHILS # (AUTO) 2.7 (2.1-6.9); NEUTROPHILS % 44.2 % (38.7-80.0); PLATELET COUNT 250 x10e3/uL (140-360); RED BLOOD COUNT 4.83 x10e6/uL (4.3-5.7); RED CELL DISTRIBUTION WIDTH 23.2 % (11.7-14.4)
[2020-06-04 07:17] LABS: ALANINE AMINOTRANSFERASE 84 IU/L (0-55); ALBUMIN 2.6 g/dL (3.5-5.0); ALBUMIN/GLOBULIN RATIO 0.6 (0.8-2.0); ALKALINE PHOSPHATASE 77 IU/L (40-150); ANION GAP 14.9 mmol/L (8-16); BLOOD UREA NITROGEN 10 mg/dL (7-26); BUN/CREATININE RATIO 14 (6-25); CALCIUM 8.9 mg/dL (8.4-10.2); CARBON DIOXIDE 27 mmol/L (22-29); CHLORIDE 99 mmol/L (98-107); CREATININE, SERUM 0.69 mg/dL (0.72-1.25); EST GLOMERULAR FILTRATION RATE > 60 ML/MIN (60-); GLUCOSE 92 mg/dL (74-118); POTASSIUM 3.9 mmol/L (3.5-5.1); SODIUM 137 mmol/L (136-145)
[2020-06-04] MEDS: PANTOPRAZOLE 40 MG 10ML VIAL IV SCH (08:33)
[2020-06-04] MEDS: GUAIFENESIN 600MG/DEXTROMETHORPHAN 30MG TABSR PO SCH ×2 (08:35→16:32)
[2020-06-04] MEDS: ENOXAPARIN SOD INJ 40 MG/0.4 ML SYR SC SCH (08:35)
[2020-06-04] MEDS: POLYETHYLENE GLYCOL 3350 17 GM PACK PO SCH (09:00)
[2020-06-04] MEDS: DOCUSATE SODIUM 100 MG CAP PO SCH ×2 (09:00→16:32)
[2020-06-04] MEDS ORDERED: ONDANSETRON HCL INJ 2MG/ML 2ML 2 MG/ML VIAL IV PRN (11:45)
[2020-06-04] MEDS ORDERED: ACETAMINOPHEN 325 MG TAB PO PRN (11:45)
[2020-06-04] MEDS ORDERED: HYDRALAZINE HCL 20 MG/ML VIAL IV PRN (11:45)
--- NOTE | 2020-06-04 12:17 | NUR ---
he patient is still requiring 3 L of oxygen. He still becomes tachycardic with physical therapy and still has weakness, but he is improving. He was sitting up in a chair today. PHYSICAL EXAMINATION: VITAL SIGNS: The patient is afebrile. The blood pressure is 133/90, saturation is 100%. HEENT: Shows no facial swelling or erythema. The oropharynx is normal. LYMPHATIC: Shows no submandibular, cervical, or supraclavicular adenopathy. CARDIAC: Reveals regular rate and rhythm with normal S1 and S2. LUNGS: Auscultation of lungs reveals rhonchorous breath sounds bilaterally. There is no wheezing. ABDOMEN: Soft, nontender. There is no rebound or guarding. EXTREMITIES: Shows no leg edema or calf tenderness. There is no cyanosis or clubbing. SKIN: Shows no rashes. NEUROLOGIC: Shows no focal abnormalities. LABORATORY DATA: CBC is within normal limits. BUN to creatinine, electrolytes are normal. IMPRESSION: 1. Acute respiratory failure. 2. Viral pneumonia and coronavirus disease 2019 infection. 3. Anemia. cont pt ot
[2020-06-04] MEDS: HYDROCODONE/CHLORPHENIRAMINE 5 ML LIQCR PO PRN ×2 (15:42→22:12)
--- NOTE | 2020-06-04 17:11 | Progress Note ---
DATE: SUBJECTIVE: The patient still with some dyspnea on exertion and easily becomes tachycardic with activity. PHYSICAL EXAMINATION: VITAL SIGNS: The patient is afebrile. The blood pressure is 128/95 and the saturation is 97% on 4 L. HEENT: Shows no facial swelling or erythema. LYMPHATIC: Shows no submandibular, cervical, or supraclavicular adenopathy. CARDIAC: Reveals a regular rate and rhythm with normal S1 and S2. LUNGS: Auscultation of lungs reveals crackles at the bases. There is no wheezing. ABDOMEN: Soft and nontender. There is no rebound or guarding. EXTREMITIES: Shows no leg edema or calf tenderness. There is no cyanosis or clubbing. SKIN: Shows no rashes. NEUROLOGICAL: Shows no focal abnormalities. LABORATORY DATA: Hemoglobin is 11.9. White blood cell count is 6.2. The platelet count is 250. BUN to creatinine ratio is normal. The albumin is 2.6. The other electrolytes are within normal limits. IMPRESSION: 1. Acute respiratory failure. 2. Viral pneumonia and COVID-19 infection. 3. Anemia. PLAN: 1. Continue physical therapy. 2. Continue to wean oxygen. 3. Lovenox. 4. Gastroesophageal reflux. 5. Continue to treat gastroesophageal reflux. Pepe Kirkpatrick MD [facility]/MODL /[id number]
[2020-06-05] VITALS (7 sets, daily range): BP systolic 107–125; BP diastolic 77–82
[2020-06-05 06:31] LABS: BASOPHILS % 0.5 % (0.0-1.0); EOSINOPHILS # (AUTO) 0.2 (0.0-0.4); EOSINOPHILS % 3.9 % (0.0-6.0); HEMATOCRIT 40.2 % (38.2-49.6); HEMOGLOBIN 12.3 g/dL (14.0-18.0); LYMPHOCYTES % 36.1 % (18.0-39.1); MEAN CORPUSCULAR HGB CONC 30.6 g/dL (31-35); MEAN CORPUSCULAR VOLUME 78.4 fL (81-99); MONOCYTES # (AUTO) 0.7 (0.2-0.8); MONOCYTES % 13.3 % (4.4-11.3); NEUTROPHILS # (AUTO) 2.6 (2.1-6.9); NEUTROPHILS % 45.8 % (38.7-80.0); PLATELET COUNT 273 x10e3/uL (140-360); RED BLOOD COUNT 5.13 x10e6/uL (4.3-5.7); RED CELL DISTRIBUTION WIDTH 22.8 % (11.7-14.4)
[2020-06-05 07:04] LABS: ALANINE AMINOTRANSFERASE 77 IU/L (0-55); ALBUMIN 2.7 g/dL (3.5-5.0); ALBUMIN/GLOBULIN RATIO 0.6 (0.8-2.0); ALKALINE PHOSPHATASE 80 IU/L (40-150); ANION GAP 11.3 mmol/L (8-16); BLOOD UREA NITROGEN 10 mg/dL (7-26); BUN/CREATININE RATIO 13 (6-25); CALCIUM 9.2 mg/dL (8.4-10.2); CARBON DIOXIDE 31 mmol/L (22-29); CHLORIDE 100 mmol/L (98-107); EST GLOMERULAR FILTRATION RATE > 60 ML/MIN (60-); GLUCOSE 97 mg/dL (74-118); POTASSIUM 4.3 mmol/L (3.5-5.1); SODIUM 138 mmol/L (136-145)
[2020-06-05] MEDS: PANTOPRAZOLE 40 MG 10ML VIAL IV SCH (08:32)
[2020-06-05] MEDS: DOCUSATE SODIUM 100 MG CAP PO SCH ×2 (08:32→16:04)
[2020-06-05] MEDS: GUAIFENESIN 600MG/DEXTROMETHORPHAN 30MG TABSR PO SCH ×2 (08:32→16:04)
[2020-06-05] MEDS: POLYETHYLENE GLYCOL 3350 17 GM PACK PO SCH (08:32)
[2020-06-05] MEDS: ENOXAPARIN SOD INJ 40 MG/0.4 ML SYR SC SCH (08:33)
[2020-06-05] MEDS: HYDROCODONE/CHLORPHENIRAMINE 5 ML LIQCR PO PRN ×2 (09:38→20:06)
--- NOTE | 2020-06-05 15:19 | Progress Note ---
DATE: SUBJECTIVE: The patient is still very fatigued. He becomes short of breath and tachycardic very quickly with exertion. At rest, he is still on 2 L of oxygen. He is saturating in the high 90s. PHYSICAL EXAMINATION: VITAL SIGNS: Blood pressure is 123/77 and heart rate is 100. HEENT: Shows no facial swelling or erythema. CARDIAC: Reveals regular rate and rhythm. Normal S1, S2. LUNGS: Auscultation of lungs reveals crackles at the bases. There is no wheezing. ABDOMEN: Soft, nontender. There is no rebound or guarding. EXTREMITIES: Shows no leg edema or calf tenderness. There is no cyanosis or clubbing. SKIN: Shows no rashes. NEUROLOGIC: Shows no focal abnormalities. LABORATORY DATA: White blood cell count is 5.57, hemoglobin is 12.3, and the platelet count is 273. The BUN to creatinine ratio is 10 to 0.8. The other electrolytes are within normal limits. Albumin is 2.7. IMPRESSION: 1. Viral pneumonia and COVID-19 infection. 2. Anemia. 3. Severe deconditioning. PLAN: 1. Continue physical therapy. We will discuss the situation with Physical Therapy, they should everyday to see the patient. 2. Neurology evaluation to assess for neuropathy or myopathy. 3. Continue to wean oxygen. 4. Continue to treat GE reflux. Pepe Kirkpatrick MD [facility]/MODL /[id number]
[2020-06-05] MEDS ORDERED: LACTATED RINGER'S 500 ML INJ ONE (15:30)
[2020-06-06] VITALS (7 sets, daily range): BP systolic 109–133; BP diastolic 85–94
[2020-06-06 06:10] LABS: BASOPHILS % 0.3 % (0.0-1.0); EOSINOPHILS # (AUTO) 0.3 (0.0-0.4); HEMATOCRIT 38.3 % (38.2-49.6); HEMOGLOBIN 11.8 g/dL (14.0-18.0); LYMPHOCYTES # (AUTO) 2.1 (1.0-3.2); LYMPHOCYTES % 36.7 % (18.0-39.1); MEAN CORPUSCULAR HEMOGLOBIN 23.7 pg (28-32); MEAN CORPUSCULAR HGB CONC 30.8 g/dL (31-35); MEAN CORPUSCULAR VOLUME 77.1 fL (81-99); MONOCYTES # (AUTO) 0.8 (0.2-0.8); MONOCYTES % 13.6 % (4.4-11.3); NEUTROPHILS # (AUTO) 2.6 (2.1-6.9); NEUTROPHILS % 44.2 % (38.7-80.0); PLATELET COUNT 277 x10e3/uL (140-360); RED BLOOD COUNT 4.97 x10e6/uL (4.3-5.7)
[2020-06-06 06:37] LABS: ALANINE AMINOTRANSFERASE 70 IU/L (0-55); ALBUMIN 2.7 g/dL (3.5-5.0); ALBUMIN/GLOBULIN RATIO 0.7 (0.8-2.0); ALKALINE PHOSPHATASE 79 IU/L (40-150); BLOOD UREA NITROGEN 11 mg/dL (7-26); BUN/CREATININE RATIO 15 (6-25); CARBON DIOXIDE 28 mmol/L (22-29); CHLORIDE 101 mmol/L (98-107); CREATININE, SERUM 0.75 mg/dL (0.72-1.25); EST GLOMERULAR FILTRATION RATE > 60 ML/MIN (60-); GLUCOSE 94 mg/dL (74-118); SODIUM 136 mmol/L (136-145)
--- NOTE | 2020-06-06 07:24 | NUR ---
PATIENT IN BED RESTING WITH EYES CLOSED, NO DISTRESS NOTED. HIGH FLOW O2 IN PLACE. BED IN LOWER POSITION, CALL LIGHT AT REACH.
[2020-06-06 08:16] LABS: FREE THYROXINE INDEX 1.834 (1.4-3.8); THYROID STIMULATING HORMONE 2.559 uIU/mL (0.350-4.940)
[2020-06-06] MEDS: POLYETHYLENE GLYCOL 3350 17 GM PACK PO SCH (09:00)
[2020-06-06] MEDS: PANTOPRAZOLE 40 MG 10ML VIAL IV SCH (09:59)
[2020-06-06] MEDS: DOCUSATE SODIUM 100 MG CAP PO SCH ×2 (09:59→17:00)
[2020-06-06] MEDS: GUAIFENESIN 600MG/DEXTROMETHORPHAN 30MG TABSR PO SCH ×2 (10:00→17:18)
[2020-06-06] MEDS: PYRIDOSTIGMINE BROMIDE 60 MG TAB PO SCH ×3 (10:00→21:19)
[2020-06-06] MEDS: ENOXAPARIN SOD INJ 40 MG/0.4 ML SYR SC SCH (10:00)
--- NOTE | 2020-06-06 10:06 | NUR ---
24 HOURS URINE COLLECTION STARTED AT 0910. WILL BE COMPLETED ON 06/07/20 AT 0910.
--- NOTE | 2020-06-06 11:19 | NUR ---
PATIENT AMBULATING IN ROOM WITH PHYSICAL THERAPY, NO DISTRESS NOTED. WILL CLOSELY MONITOR.
[2020-06-06] MEDS: HYDROCODONE/CHLORPHENIRAMINE 5 ML LIQCR PO PRN ×2 (11:48→22:07)
--- NOTE | 2020-06-06 12:33 | Consultation ---
DATE OF CONSULTATION: Neurology Consultation HISTORY OF PRESENT ILLNESS: I am seeing the patient for diffuse neuromuscular weakness, etiology, status post COVID infection. The patient is a 49-year-old male who is in hospital with respiratory disease, hospitalized for about 30+ days, complaining of weakness at least of 1 week and perhaps more. He was somewhat delirious initial hospitalization diffusely weak at this time. He denies any bladder or bowel dysfunction. Denies any falls. Denies any trauma, traumatic brain injuries or focal deficits. He denies any myalgias or paresthesias. Denies neck pain. Denies spasticity or cramping. Denies dysarthria or dysphagia. REVIEW OF SYSTEMS: Includes respiratory dysfunction and diffuse weakness. Otherwise, 14-point review of systems negative. SOCIAL HISTORY: Noncontributory. FAMILY HISTORY: Noncontributory. No history of myasthenia gravis, autoimmune disease. PHYSICAL EXAMINATION: VITAL SIGNS: He is afebrile. His blood pressure 136/82, heart rate 77. HEENT: Extraocular muscles are intact. There is no ptosis. Pupils are reactive. Face symmetric. Tongue midline. Speech is clear without dysarthria. GENERAL: He is able to pronounce garage band. He is able to pronounce tip-top and house player. EXTREMITIES: His leg shows to have slight weakness on flexion, but he does not have any fasciculations in the shoulders or in the biceps. His strength in upper extremities is 4-/5. His reflexes are symmetric, but diminished while . ABDOMEN: Soft and nontender. PULMONARY: Clear to auscultation. CARDIOVASCULAR: Regular rate and rhythm. There is no myotonia on exam. There is no ataxia on exam. Strength in the lower extremities is 4-/5. Again, diminished reflexes and mild foot drops bilaterally. ASSESSMENT AND PLAN: I am seeing Mr. 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 We are going to test for both of those and the patient is going to require as outpatient, not going to start steroids at this point to be unless I find an etiology that is autoimmune or otherwise, we will also get myasthenic panel on the chance that he may have developed myasthenia. We will continue to follow with you as we progress. I appreciate being involved in his care. MD LES MCGARRY/[place] /[id number]
--- NOTE | 2020-06-06 13:39 | Progress Note ---
DATE: SUBJECTIVE: Mr. Payne is short of breath. He seems to be a little bit worse. PHYSICAL EXAMINATION: GENERAL: He is currently alert. VITAL SIGNS: Stable, currently afebrile. HEENT: He is not icteric. NECK: Supple. CHEST: Rhonchi. IMPRESSION AND PLAN: Concerned about aspiration pneumonia. We will put him back on meropenem. Continue PT, OT. Reassess in the morning. MD NELA Curiel/MOD[facility] /[id number]
--- NOTE | 2020-06-06 14:00 | NUR ---
ASSESSMENT: Spiritual distress Pt overwhelmed by illness. Pt states he feels like things are "closing in" when reflecting on responsibilities, missing family and slow recovery from illness. Pt states he is the kind of person who wants answers and is struggling with no definite answers concerning recovery. Pt expressed emotions thru words and tears. Pt is grateful for support of family (parents, ex-, daughters) and friends. Pt frustrated because he wants to return home soon but admits he isn't well enough to be independent. Intervention: Provided unhurried pastoral presence and empathic listening. Facilitated illness review, storytelling and identification of emotions. Provided prayer. Outcome: Pt stated, "Thank you for coming by and listening to me." Followed up w/ RN. Will follow as able. VETO CARBALLO [employer] Interpreter Spiritual Care Department O: [phone]
[2020-06-06] MEDS: MEROPENEM 1GM 100 ML IV SCH ×2 (14:32→21:19)
--- NOTE | 2020-06-06 15:38 | NUR ---
PATIENT OUT OF BED TO RECLINING CHAIR WATCHING TV, NO COMPLAIN VOICED. 24 HOURS URINE COLLECTION IN PROGRESS. CALL LIGHT AT REACH.
--- NOTE | 2020-06-06 17:09 | Progress Note ---
DATE: SUBJECTIVE: The patient was seen by Neurology this morning. Neurology expressed concern about neuropathy or myopathy of critical illness. They are recommending EMGs and nerve conduction studies as an outpatient. Discussed the possibility of either Mestinon or steroids. The patient who walked with physical therapy about 20 feet. His oxygen saturation fell into the high 70s. He had a heart rate increased to 148. He had a prolonged recovery time as well. PHYSICAL EXAMINATION: VITAL SIGNS: The patient is afebrile. The blood pressure is 112/94, saturation is 97% on 2.5 L. HEENT: Shows no facial swelling or erythema. His mucosa is normal. The oropharynx is normal. LYMPHATIC: Shows no submandibular, cervical, supraclavicular adenopathy. CARDIAC: Reveals regular rate and rhythm. Normal S1, S2. LUNGS: Auscultation of lungs reveals rhonchorous breath sounds bilaterally. There is no wheezing. ABDOMEN: Soft nontender. There is no rebound or guarding. LABORATORY DATA: BUN to creatinine ratio is normal. Other electrolytes were within normal limits. The platelet count is 277. White blood cell count is 5.8. Hemoglobin is 11.4. IMPRESSION: 1. Viral pneumonia and COVID-19 infection. 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 3. Anemia. PLAN: 1. Repeat chest x-ray today. 2. Continue physical therapy. 3. Complete Neurology evaluation. 4. Continue oxygen. Pepe Kirkpatrick MD [facility]/MOD[facility] /[id number]
--- NOTE | 2020-06-06 20:09 | NUR ---
RECEIVED PT IN BED AOX3 RESPIRATIONS ARE EVEN AND UNLABORED .PT IS ON 24 HR URINE COLLECTION.CALL LIGHT WITH IN REACH .CONTINUE TO MONITOR
[2020-06-07] VITALS (8 sets, daily range): BP systolic 114–121; BP diastolic 75–91
--- NOTE | 2020-06-07 03:44 | Diagnostic Imaging Report ---
EXAMINATION: CHEST SINGLE (PORTABLE) INDICATION: Bilateral pneumonia COMPARISON: Chest x-ray 06/02/2020 FINDINGS: TUBES and LINES: None. LUNGS: Normal lung volumes. Improvement in bilateral patchy airspace haziness compared to 06/02/2020. PLEURA: No pleural effusion or pneumothorax. HEART AND MEDIASTINUM: The cardiomediastinal silhouette is unremarkable. BONES AND SOFT TISSUES: No acute osseous lesion. Soft tissues are unremarkable. UPPER ABDOMEN: No free air under the diaphragm. IMPRESSION: Improvement in multifocal pneumonia compared to 06/02/2020. Signed by: Tyson Smith DO on 06/07/2020 3:41 AM
[2020-06-07] MEDS: MEROPENEM 1GM 100 ML IV SCH ×3 (05:27→22:00)
[2020-06-07 06:13] LABS: BASOPHILS % 0.4 % (0.0-1.0); EOSINOPHILS # (AUTO) 0.3 (0.0-0.4); EOSINOPHILS % 4.1 % (0.0-6.0); HEMATOCRIT 38.9 % (38.2-49.6); LYMPHOCYTES # (AUTO) 2.5 (1.0-3.2); MEAN CORPUSCULAR HEMOGLOBIN 23.7 pg (28-32); MEAN CORPUSCULAR HGB CONC 30.8 g/dL (31-35); MEAN CORPUSCULAR VOLUME 76.7 fL (81-99); MONOCYTES # (AUTO) 0.7 (0.2-0.8); MONOCYTES % 10.5 % (4.4-11.3); NEUTROPHILS # (AUTO) 3.5 (2.1-6.9); NEUTROPHILS % 49.7 % (38.7-80.0); PLATELET COUNT 262 x10e3/uL (140-360); RED BLOOD COUNT 5.07 x10e6/uL (4.3-5.7); RED CELL DISTRIBUTION WIDTH 23.1 % (11.7-14.4)
[2020-06-07 06:32] LABS: ALANINE AMINOTRANSFERASE 67 IU/L (0-55); ALBUMIN 2.8 g/dL (3.5-5.0); ALBUMIN/GLOBULIN RATIO 0.7 (0.8-2.0); ALKALINE PHOSPHATASE 80 IU/L (40-150); ANION GAP 12.2 mmol/L (8-16); BLOOD UREA NITROGEN 12 mg/dL (7-26); BUN/CREATININE RATIO 15 (6-25); CARBON DIOXIDE 28 mmol/L (22-29); CHLORIDE 101 mmol/L (98-107); CREATININE, SERUM 0.78 mg/dL (0.72-1.25); EST GLOMERULAR FILTRATION RATE > 60 ML/MIN (60-); GLUCOSE 95 mg/dL (74-118); POTASSIUM 4.2 mmol/L (3.5-5.1); SODIUM 137 mmol/L (136-145)
--- NOTE | 2020-06-07 07:40 | NUR ---
BEDSIDE REPORT GIVEN TO THE ONCOMING NURSE
[2020-06-07] MEDS: POLYETHYLENE GLYCOL 3350 17 GM PACK PO SCH ×2 (09:00→09:03)
[2020-06-07] MEDS: DOCUSATE SODIUM 100 MG CAP PO SCH ×2 (09:03→18:27)
[2020-06-07] MEDS: GUAIFENESIN 600MG/DEXTROMETHORPHAN 30MG TABSR PO SCH ×2 (09:03→18:27)
[2020-06-07] MEDS: PANTOPRAZOLE 40 MG 10ML VIAL IV SCH (09:03)
[2020-06-07] MEDS: PYRIDOSTIGMINE BROMIDE 60 MG TAB PO SCH (09:03)
--- NOTE | 2020-06-07 09:12 | NUR ---
ORDER RECEIVED FOR INPT REHAB. CALL TO PT'S CELL PHONE @ [phone]. DISCUSSED CHOICE. PT STATES HE WOULD LIKE TO GO TO [facility] BECAUSE IT IS NEAR HIS HOME, BUT WOULD GO TO [place] IF [facility] DOES NOT ACCEPT HIS INSURANCE. STATES HE DOES NOT WANT TO RECEIVE A BILL R/O OUT OF NETWORK COSTS. AGREED TO ALLOW CM TO FAX REFERRAL TO [facility] FOR EVAL AND TO SEE IF THEY ARE ABLE TO ACCEPT HIS INSURANCE. REFERRAL FAXED TO [facility] @ OFF: [phone] / FAX: [phone]. NOTIFIED ELKIN / ALDO OF THIS. STATES SHE WAS NOT ABLE TO ACCEPT COVID PT'S, BUT SINCE THE PT HAS BEEN HER 40 DAYS SHE WILL HAVE HER DIRECTOR LOOK IT OVER AND LET CM KNOW TODAY.
--- NOTE | 2020-06-07 10:40 | NUR ---
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
[2020-06-07 11:11] LABS: CREATININE,URINE RANDOM 124.37 mg/dL (63-166)
--- NOTE | 2020-06-07 13:14 | Progress Note ---
DATE: Pulmonary Critical Care Progress Note. SUBJECTIVE: The patient still becomes very easily fatigued with minimal exertion. He also has problems with tachycardia. He was seen again by Neurology this morning. PHYSICAL EXAMINATION: VITAL SIGNS: Blood pressure is 114/90 and pulse is 97. HEENT: No facial swelling or erythema. CARDIAC: Regular rate and rhythm. Normal S1 and S2. LUNGS: Auscultation of the lungs reveals crackles and rhonchi bilaterally. ABDOMEN: Soft, nontender. There is no rebound or guarding. EXTREMITIES: No leg edema or calf tenderness. IMPRESSION: 1. Viral pneumonia and COVID-19 infection. 2. Myopathy of critical illness. 3. Anemia. 4. Gastroesophageal reflux. PLAN: 1. Continue physical therapy. 2. Continue to wean oxygen as tolerated. 3. Discussed disposition with Dr. Humphreys and Case Management. Pepe Kirkpatrick MD [facility]/[place] /[id number]
[2020-06-07] MEDS: HYDROCODONE/CHLORPHENIRAMINE 5 ML LIQCR PO PRN (14:59)
--- NOTE | 2020-06-07 18:03 | NUR ---
id note seen and examined he patient still becomes very easily fatigued with minimal exertion. He also has problems with tachycardia. He was seen again by Neurology this morning. PHYSICAL EXAMINATION: VITAL SIGNS: Blood pressure is 114/90 and pulse is 97. HEENT: No facial swelling or erythema. CARDIAC: Regular rate and rhythm. Normal S1 and S2. LUNGS: Auscultation of the lungs reveals crackles and rhonchi bilaterally. ABDOMEN: Soft, nontender. There is no rebound or guarding. EXTREMITIES: No leg edema or calf tenderness. IMPRESSION: 1. Viral pneumonia and COVID-19 infection. 2. Myopathy of critical illness. 3. Anemia. 4. Gastroesophageal reflux.
--- NOTE | 2020-06-07 20:49 | NUR ---
RECEIVED PT IN THE BED.DENIES PAIN .NO ACUTE DISTRESS NOTED CALL LIGHT WITH IN REACH .CONTINUE TO MONITOR
[2020-06-08] VITALS (8 sets, daily range): BP systolic 110–122; BP diastolic 76–88
--- NOTE | 2020-06-08 01:27 | Progress Note ---
DATE: 06/07/2020 SUBJECTIVE: The patient is supine. He states his pain level in the right hip is about 1 to 2 on a scale of 0 to 10, much improved. He reports that he had a" good day with physical therapy." Overall, he is eating well and has minimal complaints. OBJECTIVE: VITAL SIGNS: Temperature 98.1, pulse 97, blood pressure 114/89, respirations 20, oxygen saturation 99%. GENERAL: No acute distress. LUNGS: Respirations unlabored. He is on oxygen at 2.5 L/minute via nasal cannula. HEENT: EOMI. NECK: Supple. CARDIOVASCULAR: Regular rate and rhythm. No murmur. ABDOMEN: Bowel sounds positive. Soft, nontender. EXTREMITIES: No pitting edema. No clubbing, cyanosis, or notable swelling. NEUROLOGICAL: GCS 15. Nonfocal. LABORATORY DATA: Hemoglobin 12. Chemistry within normal limits with creatinine 0.78 and estimated GFR greater than 60. AST 39, ALT 67, alkaline phosphatase 80, myoglobin yesterday 27, albumin 2.8. 24-hour urine collection completed today with total volume 1 L, urine creatinine 124.37, 24-hour urine creatinine 1244, creatinine clearance 111. Immunology labs are pending. Chest x-ray done today shows improvement in multifocal pneumonia compared to 06/02/2020. ASSESSMENT AND PLAN: 1. Coronavirus disease 2019 pneumonia, status post acute respiratory distress syndrome. Oxygen drops with substantial activity along with tachycardia. Continue Lovenox. 2. Right hip bursitis. Continue physical therapy. 3. Transaminitis. LFT stable. 4. Ambulatory dysfunction. Neurology following. Myasthenia panel pending. 5. Prophylaxis, Protonix and Lovenox. Time spent 35 minutes. Billing code [id number]. Dictated by Lang North, RODRICK Shaka Humphreys MD [facility]/MODL /[id number]
[2020-06-08] MEDS: MEROPENEM 1GM 100 ML IV SCH ×3 (05:47→22:25)
--- NOTE | 2020-06-08 06:27 | NUR ---
PT RESTING DENIES PAIN .CALL LIGHT WITH IN REACH ,CONTINUE TO MONITOR
--- NOTE | 2020-06-08 06:55 | NUR ---
SBAR BEDSIDE REPORT RECEIVED FROM Gladys CORDON PM SHIFT NURSE. PT RECEIVED RESTING IN BED IN NO ACUTE DISTRESS. PT IS ABLE TO MAKE NEEDS KNOWN AND STATES NO CURRENT NEEDS. PT WAS EDUCATED ON FALL RISK PRECAUTIONS. CALL LIGHT AND BELONGINGS WERE PLACED NEARBY. WILL CONTINUE TO MONITOR.
--- NOTE | 2020-06-08 07:22 | NUR ---
BEDSIDE REPORT GIVEN TO THE ONCOMING NURSE
--- NOTE | 2020-06-08 08:15 | NUR ---
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
[2020-06-08] MEDS: GUAIFENESIN 600MG/DEXTROMETHORPHAN 30MG TABSR PO SCH ×2 (09:28→16:35)
[2020-06-08] MEDS: POLYETHYLENE GLYCOL 3350 17 GM PACK PO SCH (09:28)
[2020-06-08] MEDS: PANTOPRAZOLE 40 MG 10ML VIAL IV SCH (09:28)
[2020-06-08] MEDS: DOCUSATE SODIUM 100 MG CAP PO SCH ×2 (09:28→16:35)
--- NOTE | 2020-06-08 10:05 | NUR ---
ASSESSMENT: No concerns Follow up visit. Pt states he is "doing much better" and "did better with rehab yesterday." Pt states he talked w/ someone concerning transferring to rehab facility and "feels much better about it." Pt states he is "stubborn" and is determined to improve. Intervention: Provided pastoral presence and concern. Reminded pt of availability of chip machine operator's services, if needed. Outcome: No need to follow at this time. VETO CARBALLO [facility] Spirit[facility] Department O: [phone]
[2020-06-08] MEDS: HYDROCODONE/CHLORPHENIRAMINE 5 ML LIQCR PO PRN ×2 (11:42→22:25)
--- NOTE | 2020-06-08 15:17 | NUR ---
Infectious disease progress note Patient seen and examined chart reviewed Discussed the medical team Patient remains with weakness overall better he easily gets short of breath is a good tachycardic PHYSICAL EXAMINATION: VITAL SIGNS: Blood pressure is 114/90 and pulse is 97. HEENT: No facial swelling or erythema. CARDIAC: Regular rate and rhythm. Normal S1 and S2. LUNGS: Auscultation of the lungs reveals crackles and rhonchi bilaterally. ABDOMEN: Soft, nontender. There is no rebound or guarding. EXTREMITIES: No leg edema or calf tenderness. IMPRESSION: 1. Viral pneumonia and COVID-19 infection. 2. Myopathy of critical illness. 3. Anemia. concern aspiration pneumonia we will do meropenem for 4 days
--- NOTE | 2020-06-08 17:16 | Progress Note ---
DATE: SUBJECTIVE: The patient is afebrile. He worked with physical therapy today. He feels that he had better session today and was able to do more. PHYSICAL EXAMINATION: VITAL SIGNS: Blood pressure is 122/80 and saturation is 98% on 2 L. HEENT: Shows no facial swelling or erythema. LYMPHATIC: Shows no submandibular, cervical, or supraclavicular adenopathy. CARDIAC: Reveals regular rate and rhythm with normal S1 and S2. LUNGS: Auscultation of lungs reveals rhonchorous breath sounds bilaterally. There is no wheezing. ABDOMEN: Soft and nontender. There is no rebound or guarding. EXTREMITIES: Shows no leg edema or calf tenderness. There is no cyanosis or clubbing. SKIN: Shows no rashes. LABORATORY DATA: White blood cell count is 7.05 and the hemoglobin is 12. The platelet count is 262. The BUN to creatinine ratio is normal. The other electrolytes are within normal limits. The albumin is 2.8. IMPRESSION: 1. Myopathy of critical illness. 2. COVID-19 and viral pneumonia. 3. Trochanteric bursitis. 4. Anemia. 5. Gastroesophageal reflux. PLAN: 1. Continue physical therapy. 2. Nutritional supplementation. 3. Wean oxygen. Pepe Kirkpatrick MD [facility]/MODL /[id number]
--- NOTE | 2020-06-08 17:37 | NUR ---
Nutrition Screen Note RD Recommendation for Physician: -Continue current diet regimen and supplement Plan of Care: RD sign off Nutrition reason for involvement: follow up Primary Diagnose(s): acute respiratory disease due to COVID-19 virus PMH: Hyperlipidemia and dislocated elbow Ht: 71 in Wt: 191.56 lbs (06/08) 175 lbs (05/23) 215 lb (04/28) questionable weight change BMI: 24.5 kg/m2 IBW:[address] Assessment: 06/08: Follow up. Pt continues with avg 75% intake and drinking supplement. No GI distress, LBM 06/05. Labs and meds reviewed. Pt pending discharge to inpatient rehab. Pt nutritionally stable, RD to sign off. 06/01: Follow up. Chart reviewed. It is recorded that pt consumed 75% of meals yesterday. Will continue to monitor. 05/25: Follow up. Pt eating 50-100% of meals and drinking Ensure TID. Labs reviewed, WNL. Meds reviewed. No GI distress noted. Skin intact. Chart reviewed. Will continue to monitor. 05/20: Follow up. Chart reviewed. It is recorded that pt is consuming 75-100% of meals. Will continue to monitor. 05/13: Follow up. Chart reviewed. RD called pts nurse over the phone. RN stated that pt consumed all of his breakfast this morning and is drinking Ensure. Will continue to monitor. 05/06: Follow up. Chart reviewed. RD called pt's nurse over the phone. RN stated pt is consuming 75% of his meals and is drinking Ensure nutrition supplements. Will continue to monitor. (04/29/20) Chart reviewed. Labs and meds reviewed. Pt is a 49 year old male admitted with acute respiratory disease due to COVID-19. Pt was transferred to the [facility] ICU and is on high-flow oxygen. Unable to speak to pt due to isolation restrictions. Pt is currently on a cardiac diet with Ensure Enlive ordered BID. It is recorded that pt consumed 75% of lunch today and 100% of dinner yesterday. There are no previous weights in chart. Will continue to monitor. Current Diet: cardiac diet with Ensure Enlive TID Malnutrition Evaluation (06/08/20) Pt does not currently meet criteria for malnutrition. Will re-evaluate at follow-up as appropriate. Diet Education Needs Assessment: Not indicated Nutrition Care Level: low- RD to sign off Signed: Dalia Marques RD, LD, [facility]
[2020-06-09 00:25] VITALS: BP 126/86
--- NOTE | 2020-06-09 03:31 | NUR ---
DATE OF SERVICE: 06/08/2020 ATTENDING PHYSICIAN: Dr. Shaka Humphreys CONSULTING PHYSICIANS: 1. Dr. Evans, Infectious Disease 2. Dr. Brantley, Orthopedics 3. Dr. Contreras, Neurology 4. Dr. Kirkpatrick, Pulmonology SUBJECTIVE: He states his pain level in the right hip has been about 1 to 2 on a scale of 0 to 10, especially when moving around, but is much improved. He reports serial good days with PT; lung reserve/recovery subjectively improving. NRBM used at times during coughing spells. Overall, he is eating well and has minimal complaints. OBJECTIVE: VITAL SIGNS: Temperature 98.0, pulse 101, 122/82, respirations 26, oxygen saturation 98%. GENERAL: Supine. No acute distress. LUNGS: Respirations unlabored. He is on oxygen at 2.5 L/minute via nasal cannula. HEENT: EOMI. NECK: Supple. CARDIOVASCULAR: Regular rate and rhythm. No murmur. ABDOMEN: Bowel sounds positive. Soft, nontender. EXTREMITIES: No pitting edema. No clubbing, cyanosis, or notable swelling. NEUROLOGICAL: GCS 15. Nonfocal. DIAGNOSTIC STUDIES: ~LABORATORY DATA: 06/08: Lab holiday today. Immunology labs are pending. 06/07: ESR 30. Hemoglobin 12. Chemistry within normal limits with creatinine 0.78 and estimated GFR greater than 60. AST 39, ALT 67, alkaline phosphatase 80, albumin 2.8. 24-hour urine collection with total volume 1 L, urine creatinine 124.37, 24-hour urine creatinine 1244, Cr clearance 111. 06/06 Myoglobin: 27 ~IMAGING/OTHER: 06/07 CXR: improvement in multifocal pneumonia compared to 06/02/2020. ASSESSMENT AND PLAN: 1. COVID-19 Pneumonia, s/p ARDS: SpO2 drops with substantial activity, paroxysmal tachycardia. Continue Lovenox. 2. 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 Myasthenia panel & myositic labs sent; results pending. Per Neurology recs, Droxidopa may be initiated as outpatient treatment if neurogenic orthostatic hypotension becomes apparent. Outpatient tilt table testing and EMG are both warranted. 3. Severe Debility due to #1, Right hip bursitis. Orthopedics following. Continue physical therapy. 4. Transaminitis. LFT stable. 5. Ambulatory dysfunction: Continue PT. Prophylaxis, Protonix and Lovenox. Dischage Planning: Current DC Plan is for Inpatient Rehab. Case discussed with NETO Vallejo; awaiting insurance auth. Time spent 35 minutes. Billing code [id number].
[2020-06-09 05:10] VITALS: BP 110/78
[2020-06-09] MEDS: MEROPENEM 1GM 100 ML IV SCH ×2 (06:00→13:54)
[2020-06-09 06:14] LABS: BASOPHILS % 0.3 % (0.0-1.0); EOSINOPHILS # (AUTO) 0.2 (0.0-0.4); EOSINOPHILS % 3.3 % (0.0-6.0); HEMOGLOBIN 12.6 g/dL (14.0-18.0); LYMPHOCYTES # (AUTO) 2.4 (1.0-3.2); LYMPHOCYTES % 33.2 % (18.0-39.1); MEAN CORPUSCULAR HEMOGLOBIN 23.8 pg (28-32); MEAN CORPUSCULAR VOLUME 79.2 fL (81-99); MONOCYTES # (AUTO) 0.7 (0.2-0.8); MONOCYTES % 9.3 % (4.4-11.3); NEUTROPHILS # (AUTO) 3.9 (2.1-6.9); NEUTROPHILS % 53.6 % (38.7-80.0); PLATELET COUNT 269 x10e3/uL (140-360); RED CELL DISTRIBUTION WIDTH 23.3 % (11.7-14.4)
[2020-06-09 06:39] LABS: ALANINE AMINOTRANSFERASE 61 IU/L (0-55); ALBUMIN 2.8 g/dL (3.5-5.0); ALBUMIN/GLOBULIN RATIO 0.7 (0.8-2.0); ALKALINE PHOSPHATASE 79 IU/L (40-150); ANION GAP 13.3 mmol/L (8-16); BLOOD UREA NITROGEN 14 mg/dL (7-26); BUN/CREATININE RATIO 18 (6-25); CALCIUM 8.9 mg/dL (8.4-10.2); CARBON DIOXIDE 28 mmol/L (22-29); CHLORIDE 102 mmol/L (98-107); CREATININE, SERUM 0.76 mg/dL (0.72-1.25); EST GLOMERULAR FILTRATION RATE > 60 ML/MIN (60-); GLUCOSE 97 mg/dL (74-118); PHOSPHORUS 3.8 MG/DL (2.3-4.7); POTASSIUM 4.3 mmol/L (3.5-5.1); SODIUM 139 mmol/L (136-145)
[2020-06-09 08:00] VITALS: BP 103/88
[2020-06-09] MEDS: PANTOPRAZOLE 40 MG 10ML VIAL IV SCH (08:16)
[2020-06-09] MEDS: GUAIFENESIN 600MG/DEXTROMETHORPHAN 30MG TABSR PO SCH ×2 (08:16→17:45)
[2020-06-09 08:17] VITALS: BP 103/88
[2020-06-09] MEDS: DOCUSATE SODIUM 100 MG CAP PO SCH ×2 (08:24→17:00)
[2020-06-09] MEDS: POLYETHYLENE GLYCOL 3350 17 GM PACK PO SCH (08:30)
[2020-06-09 12:03] VITALS: BP 111/81
[2020-06-09] MEDS: HYDROCODONE/CHLORPHENIRAMINE 5 ML LIQCR PO PRN (13:56)
--- NOTE | 2020-06-09 15:23 | NUR ---
ACUTE REHAB DISCHARGE INFORMATION PATIENT HAS BEEN ACCEPTED TO: NAME[facility] ADDRESS: [address] [facility], [place] ACCEPTING SOFTWARE SALES EXECUTIVE: AGUSTIN DAVIS MD: HITESH TEJEDA ROOM: 3106 NURSE CALL REPORT TO: [phone] THE FOLLOWING DOCUMENTS MUST ACCOMPANY PATIENT FOR TRANSFER: COPIED CHART: MOT INFO RECEIVED FROM: [facility] ORDER/RECONCILED MED LIST: HARDIK HUNTLEY [id number] DNR: N/A Addendum: 06/09/20 at 1531 by Genevieve Godinez CM CONTACTED THE PT IN THE ROOM FOR MOT AND NOTIFY OF ROOM #
[2020-06-09 16:00] VITALS: BP 114/82
[2020-06-09] MEDS ORDERED: Hydrocodone/Chlorpheniramine PO (16:55)
[2020-06-09] MEDS ORDERED: MIRALAX17 GM PO ×2 (16:55)
[2020-06-09] MEDS ORDERED: ACETAMINOPHEN325 M1 PO (16:55)
[2020-06-09] MEDS ORDERED: Hydrocodone/Apap 5MG-325MG PO (16:55)
[2020-06-09] MEDS ORDERED: CYCLOBENZAPRINE10 MG PO (16:55)
[2020-06-09] MEDS ORDERED: MERREM1 GM IV (16:55)
[2020-06-09] MEDS ORDERED: PROTONIX IV40 MG IV (16:55)
[2020-06-09] MEDS ORDERED: NAPROXEN250 MG PO (16:55)
[2020-06-09] MEDS ORDERED: COLACE100 MG PO (16:55)
[2020-06-09] MEDS ORDERED: MUCINEX DM ER1 EACH PO (16:55)
[2020-06-09] MEDS ORDERED: HYDRALAZIN20 MG/1 ML IV (16:55)
[2020-06-09] MEDS ORDERED: ONDANSETRON4 MG/2 M1 IV (16:55)
--- NOTE | 2020-06-09 17:00 | NUR ---
Report called to Emmie at [facility].
--- NOTE | 2020-06-09 19:20 | NUR ---
Received shift report from morning nurse. Pt alert and oriented to name, lying in bed HOB 45 degrees, denies pain at this time. Call light within reach.
--- NOTE | 2020-06-09 19:55 | NUR ---
D/C'd via stretcher by ambulance to [facility]. Pt alert and oriented no distress noted. Discharge paperwork given to EMS. Pt verbalized understanding of POC.
--- NOTE | 2020-06-09 22:25 | Progress Note ---
DATE: Neurology SOAP note Seeing him for a critical care cardiomyopathy. SUBJECTIVE: No acute overnight events. The patient is stable. PHYSICAL EXAMINATION: VITAL SIGNS: He is afebrile. His blood pressure is 128/76, heart rate is 77. NEUROLOGIC: Extraocular muscles intact. There is no ptosis. Pupils are reactive. Face is symmetric. Tongue is midline. Speech is clear. Strength in the upper extremities is 4-/5, lower extremities is 4-/5. Reflexes are intact, but diminished. Sensory in the bilateral extremities are stable. There is no ataxia in the upper or lower extremities. No myotonia or fasciculations are noted. 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 I would recommend starting him on CoQ10, Mestinon for neuromuscular weakness if needed, and then we will follow him in PT, OT and rehab, and get an EMG as an outpatient. DIEGO CHAUHAN MD [facility]/MODL /[id number]
--- NOTE | 2020-06-10 03:01 | Discharge Summary ---
PCP: No PCP listed. CONSULTING PHYSICIANS: Dr. Vicky Evans with Infectious Disease, Dr. Pepe Kirkpatrick with Pulmonology Critical Care Medicine, Dr. Brantley with Orthopedics, Dr. Contreras with Neurology. CHIEF COMPLAINT: Dyspnea and fevers on admission. HISTORY OF PRESENT ILLNESS: The patient is a 49-year-old male, who had been sick about 2 weeks prior to arrival having chills the first week. The patient stated that he had experienced increased shortness of breath with only minimal exertion, worsening cough. He thus came to the emergency department and was found to have a low oxygen saturation. He tested positive for COVID-19. PAST MEDICAL HISTORY: Hyperlipidemia and dislocated elbow. PAST SURGICAL HISTORY: LASIK eye surgery. FAMILY HISTORY: Father had diabetes mellitus. Mother had diabetes mellitus and early Alzheimer's. SOCIAL HISTORY: He denied any use of tobacco or illicit drugs. He drinks alcohol on occasion. 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 ALLERGIES: NO KNOWN ALLERGIES. ADMITTING DIAGNOSES: 1. Viral community-acquired pneumonia (present on admission) due to coronavirus disease 2019. 2. Microcytic anemia. 3. Acute hyponatremia. 4. Acute hypochloremia. 5. Transaminitis. 6. Elevated creatine kinase. 7. Hypoalbuminemia. DISCHARGE DIAGNOSES: 1. Coronavirus disease 2019 pneumonia, status post acute respiratory distress syndrome. 2. 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 3. Severe debility due to #1, right hip bursitis. 4. Transaminitis. 5. Ambulatory dysfunction. HOSPITAL COURSE: Please see history and physical for admitting laboratory data. On 04/28, coronavirus PCR was positive. Initial chest x-ray showed findings consistent with a clinical diagnosis of viral pneumonia. On 04/28, the patient had a CT of the chest, which showed diffuse patchy ground-glass opacity involving both lungs, worse at the bases, which most likely represents multifocal pneumonia. No evidence of pulmonary embolism. CT of the chest was repeated on 05/15. No pulmonary embolism to the level of interlobar pulmonary arteries. Extensive bilateral multifocal pneumonia as noted on multiple prior chest x-ray examinations. Due to his right hip pain toward the end of his stay on 05/30, he had a right hip x-ray, which showed no acute osseous injury. No acute fracture or dislocation. No substantial degenerative change. Soft tissues unremarkable. Modified barium swallow done on 05/19, shows fluoroscopy service provided to the Speech Pathology. Per the speech therapist note dated 05/19, the patient with normal oral phase of swallowing, functional pharyngeal phase of swallow. No aspiration/penetration witnessed on evaluation. Fatigue is a factor. Pharyngeal weakness and reduced laryngeal movement present. Good prognosis. Recommendations for regular texture with thin liquids, swallow precautions, reflux precautions. Per the most recent Physical Therapy note dated 06/09/2020, by Thi Miguel, geophysical computer, the patient is still having coughing fits during physical therapy. He becomes anxious and uses nonrebreather mask. Coughing fits result in shortness of breath and anxiety, which limits the patient slightly unsteady with gait. Over the course of his stay, he received several different types of antibiotics. He was on azithromycin and Rocephin. He received a course of dexamethasone. He was also on zinc sulfate, vitamin C, vitamin D, Lovenox. He was on guaifenesin with codeine for his cough. He did not require intubation during his hospitalization; however, at one point, he was requiring Vapotherm 40 L/minute, FiO2 of 100% plus nonrebreather mask. He was not a candidate for remdesivir as the patient had been sick for 2 weeks prior to arrival. There was concern for a bacterial superimposed pneumonia. Gradually, the patient improved and we were able to wean his oxygen down to about 2.5 L/minute via nasal cannula. However, due to his limitations, he did not progress with physical therapy as much as we had hoped. The patient will be transferring to [facility] and accepting physician will be Dr. Denny Mckeon, as an attending physician. Hopefully, Dr. Humphreys will be consulted for medical management and we can continue to follow him from that standpoint after transfer. Communication sent with Rozina Rodriguez, physician's temporary administrative assistant with Dr. Humphreys, who will be covering [facility] today and tomorrow. On 05/02, total bilirubin was 0.5, AST 83, ALT 80, alkaline phosphatase 80, mild transaminitis, which fluctuated. LFTs were monitored. Lipitor was continued for hyperlipidemia. For a while the patient was in COVID ICU, his oxygen was weaned down. He will be transferred on a cardiac diet. Activity level as tolerated. Physical therapy to continue over there. The patient had been on vancomycin at one point. On 05/07, sputum Gram stain culture and sensitivity grew Pseudomonas aeruginosa. Albuterol inhaler was utilized. The patient was also on antibiotics, cefepime. At times, magnesium was low, requiring repletion. He also required Precedex drip 0.8 mcg/kg per minute at one point. Toward the end of stay, the patient complained of worsening right hip pain. On 05/30, Orthopedic consult was entered. The patient was found to have right hip bursitis. At that time, he was given Ghent 10 mg every 6 hours or to be out of bed 3 times a day, cold compresses to the right hip, G[place]t, Naprosyn, Flexeril as well as a dose of morphine sulfate that day in an effort to help control his pain. Per the Neurology note, Mestinon did not provide objective benefit, but may have contributed to bradycardia. This Mestinon was held. Myasthenia panel and myelocytic labs were sent with results pending. Droxidopa may be initiated as outpatient treatment if neurogenic orthostatic hypotension becomes apparent. Outpatient tilt-table testing and EMG are both warranted. The patient will be transferred to acute inpatient rehab at [facility] with Dr. Denny Mckeon as accepting physician. Continue cardiac diet. Activity level as tolerated, weightbearing as tolerated. Currently not on antibiotics. Myoglobin on 06/06 was 27. ESR on 05/30 was 30. Vital signs on the day of discharge; temperature 97.2, heart rate 102, respirations 22, blood pressure 114/82, oxygen saturation 100%. Right hip pain lately has been 1 to 2 on a scale of 0 to 10. Lung reserve/recovery subjectively improving. Still uses nonrebreather mask at times during coughing spells. Chest x-ray done on 06/07, shows improvement in multifocal pneumonia compared to 06/02/2020. Today, WBC 7.23, hemoglobin 12.6, hematocrit 42, and platelets 269. BUN 14, creatinine 0.76, estimated GFR greater than 60. AST 37, ALT 61. NATASHA screen was negative. Dictated by [place] NP Shaka Humphreys MD [facility]/MODL /[id number]
== END 2020-06-09 19:56 | DRG 871 ==
LOC: ER 09:50 → ERHOLD 11:35 → IMCU 14:11 → COVIDICU 04-29 13:52 → IMCU 05-24 12:00 → MED/SURG3 05-30 18:17
PROVIDERS: ADMIT Internal Medicine; ATTEND Internal Medicine
PROC: 8E0ZXY6 Isolation (ICD-10-PCS; principal; 2020-04-28)
DX: A41.9 Sepsis, unspecified organism (principal); U07.1 COVID-19; J12.9 Viral pneumonia, unspecified; J96.01 Acute respiratory failure with hypoxia; I26.99 Other pulmonary embolism without acute cor pulmonale; E87.1 Hypo-osmolality and hyponatremia; I42.8 Other cardiomyopathies; I82.409 Acute embolism and thrombosis of unspecified deep veins of unspecified lower extremity; E87.2 Acidosis; E46 Unspecified protein-calorie malnutrition; R65.20 Severe sepsis without septic shock; D50.9 Iron deficiency anemia, unspecified; E87.8 Other disorders of electrolyte and fluid balance, not elsewhere classified; R74.0 Nonspecific elevation of levels of transaminase and lactic acid dehydrogenase [LDH]; K27.9 Peptic ulcer, site unspecified, unspecified as acute or chronic, without hemorrhage or perforation; E78.5 Hyperlipidemia, unspecified; E66.9 Obesity, unspecified; Z68.30 Body mass index [BMI] 30.0-30.9, adult; Z74.09 Other reduced mobility; M70.71 Other bursitis of hip, right hip; G72.89 Other specified myopathies; K21.9 Gastro-esophageal reflux disease without esophagitis; E87.5 Hyperkalemia; B96.5 Pseudomonas (aeruginosa) (mallei) (pseudomallei) as the cause of diseases classified elsewhere; R19.7 Diarrhea, unspecified; D50.0 Iron deficiency anemia secondary to blood loss (chronic); B94.2 Sequelae of viral hepatitis; Z99.81 Dependence on supplemental oxygen
CPT/HCPCS: 36415; 71045; 71260; 74230; 80048; 80053; 80061; 82140; 82550; 82553; 82575; 82948; 83036; 83519; 83735; 83874; 84100; 84436; 84443; 84479; 84484; 84550; 85025; 85651; 86039; 86235; 87070; 87186; 87205; 93306; 96361; 96365; 96366; 97139; 99285; J0456; J0692; J0696; J1100; J1650; J1940; J2270; J3370; J7050; J7121; Q9967; U0002

== ENCOUNTER → 2020-12-12 | Outpatient (CLI) | payer BC ==
[~2020-12-12] MED LIST: ACETAMINOPHEN325 M1 PO; ATORVASTATIN CA20 MG PO; COLACE100 MG PO; CYCLOBENZAPRINE10 MG PO; HYDRALAZIN20 MG/1 ML IV; Hydrocodone/Apap 5MG-325MG PO; Hydrocodone/Chlorpheniramine PO; MERREM1 GM IV; MIRALAX17 GM PO; MUCINEX DM ER1 EACH PO; NAPROXEN250 MG PO; ONDANSETRON4 MG/2 M1 IV; PROTONIX IV40 MG IV
== END ==
LOC: RESP 08:40
PROVIDERS: ATTEND Internal Medicine Critical Care Medicine
DX: U07.1 COVID-19 (principal); R05 Cough; J30.89 Other allergic rhinitis; B97.89 Other viral agents as the cause of diseases classified elsewhere; R06.00 Dyspnea, unspecified
CPT/HCPCS: 94060; 94640; 94727; 94729